=== PATIENT | female | born 1955 ===

== ENCOUNTER 2017-01-10 00:57 | Inpatient (IN) ==
[2017-01-10] MEDS ORDERED: ONDANSETRON 4 MG/2 ML VIAL IV STA (01:24)
[2017-01-10] MEDS ORDERED: MORPHINE 2 MG/1 ML SYRINGE IV STA (01:24)
--- NOTE | 2017-01-10 01:36 | Emergency Department Note ---
Myesha Quispe Emily, am scribing for, and in the presence of, Rodney Larsen MD 01: 32. Chava Quispe Robert M, MD, personally performed the services described in this documentation, ascribed by Karina Brunner in my presence, and it is both accurate and complete . Arrival - Arrival Chief Complaint: Non-Specific Stated Complaint: left hip pain ED Nursing Triage Note: Patient to ED coming from home with c/o left hip pain. Patient was [facility] and [facility] for same c/o but was told nothing was wrong. Upon arrival to ED patient is noted to have large samantha shayy to left upper thigh, with blisters present and some discoloaration. foul odor noted. Patient is deaf and mute, but her siginificant other is present and states he thinks this has been going on for 2 weeks. Patient is unable to communicate at all, other than some gestures. injury or fall is denied. Mode of Arrival: Stretcher Limitations: Physical Limitation (deaf and mute) Source: Significant other () Time Seen by Provider: 01/10/17 01:19 - History of Present Illness HPI Narrative: Pt is a 61 y/o female who came to ED by [facility] for further evaluation of left hip pain that started Saturday. Spouse notes pt doesn't speak and cannot hear. Spouse notes having an xray done Saturday and no results were given. He reports pt barely walking on left leg and denies fall or injury recently. Pt has blisters to upper left thigh. Onset (ago): week(s) Consistency: constant Severity: moderate Severity scale (1-10): 7 Allergies/Adverse Reactions: Allergies Allergy/AdvReac Type Severity Reaction Status Date / Time No Known Allergies Allergy Unverified 01/10/17 01:13 Home Medications: Home Medications Medication Instructions Recorded Confirmed Type Acetaminophen 2 tablet PO Q6HR PRN 01/10/17 01/10/17 History Metformin HCl 1 tablet PO BID 01/10/17 01/10/17 History cefUROXime axetil [Cefuroxime] 1 tablet PO BID 01/10/17 01/10/17 History Review of System - Review of System ROS unobtainable: other (deaf and mute) Medical,Surgical,& Family Hx - Medical History Endocrine: History of: Diabetes Mellitus (IDDM) - Social History Smoking Status: Unknown if ever smoked Frequency of Alcohol Use: None Type of Drug Use: None Marital Status: Lives With:: Spouse Functional capacity: independent ambulation Exam Vital Signs: Vital Signs Temperature 97.5 F L 01/10/17 01:04 Pulse Rate 99 H 01/10/17 01:04 Respiratory Rate 20 01/10/17 01:04 Blood Pressure 106/69 01/10/17 01:04 O2 Sat by Pulse Oximetry 96 01/10/17 01:04 - General General appearance: alert, in no apparent distress, obese (morbidly) - Head Head exam: Present: atraumatic, normocephalic - Eye Eye exam: Present: PERRL, EOMI - ENT ENT exam: Present: mucous membranes moist. Absent: mucous membranes dry - Neck Neck exam: Present: full ROM. Absent: tenderness - Chest Chest inspection: Present: symmetric chest wall rise. Absent: tenderness - Respiratory Respiratory exam: Present: normal lung sounds bilaterally. Absent: respiratory distress - Cardiovascular Cardiovascular exam: Present: regular rate, normal rhythm, normal heart sounds - Extremities Exam Extremities exam: Present: tenderness (tenderness at the lateral aspect of the left hip with left leg shortened and slightly externally rotated; ulceration at upper left thigh no drainage). Absent: full ROM (limited ROM secondary to pain) , pedal edema - Neurological Exam Neurological exam: Present: alert, CN II-XII intact, other (pt is non verbal but responds appropriately to pain). Absent: motor sensory deficit - Psychiatric Psychiatric exam: Present: normal affect, normal mood - Skin Skin exam: Present: warm, dry Course - Reevaluation(s) Reevaluation #1: Patient converted to A. fib with RVR. Will get EKG and give her Cardizem. Time: 02:43 - Consultations Consultation #1: Dr. Latrice Murillo will admit the patient. Time: 04:49 Results - Labs CBC & BMP: 01/10/17 01:43 01/10/17 01:43 Lab Results: I have reviewed the patients labs Labs: Lab Results WBC 17.1 T/CUMM (4-12) H 01/10/17 01:43 RBC 4.40 MC/CUMM (3.8-5.5) 01/10/17 01:43 Hgb 12.8 GM/DL (12.0-16.0) 01/10/17 01:43 Hct 37.0 VOL% (35.7-47.0) 01/10/17 01:43 MCV 84.1 FL (87-102) L 01/10/17 01:43 MCH 29 PG (27-34) 01/10/17 01:43 MCHC 34.6 GM/DL (32-36) 01/10/17 01:43 RDW 13.7 % (9.3-17.3) 01/10/17 01:43 Plt Count 297 T/CUMM (130-400) 01/10/17 01:43 MPV 10.2 FL (9.6-12.0) 01/10/17 01:43 Neut % (Auto) 84.7 % (38.7-73.9) H 01/10/17 01:43 Lymph % (Auto) 5.3 % (21.3-54.2) L 01/10/17 01:43 [place] % (Auto) 5.7 % (1.7-12.7) 01/10/17 01:43 Eos % (Auto) 0.2 % (0.00-10.9) 01/10/17 01:43 Baso % (Auto) 0.6 % (0.0-0.8) 01/10/17 01:43 Neut # (Auto) 14.5 10*3/uL (1.4-7.4) H 01/10/17 01:43 Lymph # (Auto) 0.9 10*3/uL (1.4-4.0) L 01/10/17 01:43 [place] # (Auto) 1.0 10*3/uL (0.11-0.8) H 01/10/17 01:43 Eos # (Auto) 0.0 10*3/uL (0.0-0.87) 01/10/17 01:43 Baso # (Auto) 0.1 10*3/uL (0.0-0.2) 01/10/17 01:43 Total Counted 100 01/10/17 01:43 Immature Gran % 3.5 % 01/10/17 01:43 Nucleated RBC % 0.0 /100WBC 01/10/17 01:43 Immature Gran # 0.60 # 01/10/17 01:43 Segmented Neutrophils 84 % (50-85) 01/10/17 01:43 Band Neutrophils 5 % (0-10) 01/10/17 01:43 Lymphocytes 9 % (20-55) L 01/10/17 01:43 Monocytes 2 % (2-15) 01/10/17 01:43 Nucleated RBCs # 0.00 10*3/uL 01/10/17 01:43 Platelet Estimate Normal 01/10/17 01:43 Sodium 136 MMOL/L (136-145) 01/10/17 01:43 Potassium 3.8 MMOL/L (3.5-5.1) 01/10/17 01:43 Chloride 100 MMOL/L (98-107) 01/10/17 01:43 Carbon Dioxide 19 MMOL/L (21-32) L 01/10/17 01:43 Anion Gap 20.8 MMOL/L (5.0-15.0) H 01/10/17 01:43 BUN 45 MG/DL (7-18) H 01/10/17 01:43 Creatinine 2.90 MG/DL (0.55-1.02) H 01/10/17 01:43 GFR Calculation 21 ML/MIN 01/10/17 01:43 BUN/Creatinine Ratio 15.00 RATIO (6.00-20.00) 01/10/17 01:43 Glucose 170 MG/DL (74-106) H 01/10/17 01:43 Calculated Osmolality 287.0 MOS/KG (273-304) 01/10/17 01:43 Calcium 7.9 MG/DL (8.5-10.1) L 01/10/17 01:43 Magnesium 1.4 MG/DL (1.8-2.4) L 01/10/17 01:43 - Diagnostic Findings Procedure: CT: image reviewed by me Critical Care Time Critical Care Time: Yes Total Critical Care Time: 52 Disposition Clinical Impression: Fasciitis left inguinal region Case discussed with: patient, patient's family Disposition: Still a Patient Condition: Stable Time of Disposition: 04:49
[2017-01-10] MEDS ORDERED: MORPHINE 2 MG/1 ML SYRINGE ONE (01:57)
[2017-01-10] MEDS ORDERED: ONDANSETRON 4 MG/2 ML VIAL ONE ×2 (01:57→07:50)
[2017-01-10 01:58] LABS: Basophils # 0.1 10*3/uL (0.0-0.2); Basophils % 0.6 % (0.0-0.8); Eosinophils % 0.2 % (0.00-10.9); Hemoglobin 12.8 GM/DL (12.0-16.0); Immature Granulocytes % 3.5 %; Lymphocytes # 0.9 10*3/uL (1.4-4.0); Lymphocytes % 5.3 % (21.3-54.2); Mean Corpuscular HGB Conc 34.6 GM/DL (32-36); Mean Corpuscular Hemoglobin 29 PG (27-34); Mean Corpuscular Volume 84.1 FL (87-102); Mean Platelet Volume 10.2 FL (9.6-12.0); Monocytes % 5.7 % (1.7-12.7); Neutrophils # 14.5 10*3/uL (1.4-7.4); Neutrophils % 84.7 % (38.7-73.9); Platelet Count 297 T/CUMM (130-400); Red Cell Distribution Width 13.7 % (9.3-17.3); White Blood Count 17.1 T/CUMM (4-12)
[2017-01-10 02:34] LABS: Calcium 7.9 MG/DL (8.5-10.1); Magnesium 1.4 MG/DL (1.8-2.4); Potassium 3.8 MMOL/L (3.5-5.1)
[2017-01-10] MEDS ORDERED: DILTIAZEM 50 MG/10 ML VIAL IV STA ×2 (02:43→03:49)
--- NOTE | 2017-01-10 02:48 | EKG Report ---
Stationary ECG Study [facility] ER Test Date: 01/10/2017 2:49:30 AM Pat Name: BRINA LAKHANI Department: Room: Gender: F Angle Shearer: : 1955 Requested by: Rodney Larsen Order Number: [id number] Keyana MD: ESTEFANÍA TANG Intervals [place] Rate: 155 P: 999 MA: 0 QRS: 26 QRSD: 92 T: -12 QT: 294 QTc: 381 Interpretive Statements ATRIAL FIBRILLATION WITH RAPID VENTRICULAR RESPONSE Electronically Signed On 01-12-17 12:12:17 CDT by ESTEFANÍA TANG [email or web address]
[2017-01-10] MEDS ORDERED: DILTIAZEM 50 MG/10 ML VIAL IV ONE (02:53)
[2017-01-10] MEDS ORDERED: DILTIAZEM 100 MG VIAL.ADD IV ONE (02:53)
[2017-01-10] MEDS: DILTIAZEM INJ 100 MG in SODIUM CHLORIDE 0.9% 100 ML IV SCH (03:05)
[2017-01-10 04:19] LABS: Band Neutrophils 5 % (0-10); Lymphocytes 9 % (20-55); Segmented Neutrophils 84 % (50-85)
[2017-01-10 04:20] LABS: Platelet Estimate Normal; Total Cells Counted 100
[2017-01-10] MEDS ORDERED: ACETAMINOPHEN 325 MG TABLET PO PRN (04:50)
[2017-01-10] MEDS ORDERED: BISACODYL 5 MG TABLET PO PRN (04:50)
[2017-01-10] MEDS ORDERED: ONDANSETRON 4 MG/2 ML VIAL IV PRN (04:50)
[2017-01-10] MEDS ORDERED: DEXTROSE 50% 25 GM/50 ML VIAL IV PRN ×2 (04:51→07:03)
[2017-01-10] MEDS ORDERED: GLUCAGON 1 MG VIAL IM PRN ×2 (04:51→07:03)
[2017-01-10] MEDS ORDERED: INSULIN LISPRO 100 UNIT/ML SUBCUT SCH (06:00)
[2017-01-10] MEDS: LACTATED RINGERS 1,000 ML IV SCH ×4 (06:00→18:13)
[2017-01-10] MEDS: NOREPINEPHRINE 8 MG in SODIUM CHLORIDE 0.9% 242 ML IV SCH ×3 (06:05→23:33)
[2017-01-10] MEDS ORDERED: NOREPINEPHRINE 4 MG/4 ML VIAL IV ONE (06:10)
--- NOTE | 2017-01-10 06:25 | CT Report ---
History: Pelvic and left hip pain and swelling and subcutaneous air Date: 01/10/2017 Study: CT left hip without contrast Comparison exam: No previous Thin spiral CT sections were obtained to the left hip without IV contrast. Multiplanar reconstruction images are also evaluated. The CT exam was performed using one or more of the following dose reduction techniques: Automated exposure control, adjustment of the mA and/or kV according to patient size, or use of iterative reconstruction technique. The study was also reviewed by [facility]. There is no fracture, dislocation, or focal destructive osseous abnormality. There is mild osteophyte formation of the left hip. Within the soft tissues anterior to the left hip and left pelvis and extending into the left perineum, there is edema of the subcutaneous fat with multiple small areas of gas density bubbles as well. This suggests soft tissue inflammation related to gas-forming organisms. There is no confined fluid collection to suggest abscess. Impression: Soft tissue edema in these anterior left hip and pelvis, extending into the lower left perineum, suspicious for infection related to gas-forming organisms. Osteoarthritis left hip PROCEDURE INTERPRETED AT [facility] DEPARTMENT OF RADIOLOGY Final Report Signed by: Dr. Margie Barker
[2017-01-10] MEDS ORDERED: MAGNESIUM SULF RIDER 50 ML IV ONE (06:52)
[2017-01-10] MEDS ORDERED: POTASSIUM CHLORIDE RIDER 100 ML IV ONE (06:53)
[2017-01-10] MEDS ORDERED: MAGNESIUM SULF RIDER 2 GM in PREMIX 1 EACH IV ONE (06:53)
[2017-01-10] MEDS ORDERED: LIDOCAINE 1%/EPI INJ 20 ML VIAL ONE (07:01)
[2017-01-10] MEDS ORDERED: BUPIVACAINE 0.25% /EPI 10 ML VIAL ONE (07:01)
--- NOTE | 2017-01-10 07:18 | XRay Report ---
Exam: XR hip 2v w pelvis LT Date: 01/10/2017 1:23 AM Indication: Status post fall pain left leg Comparison: None Technical: AP pelvis with left hip 4 images Findings: The sacrum is unremarkable. The iliac wings are intact the pubic rami are unremarkable. IUD is in place. The femoral heads are seated within acetabular regions. Greater lesser trochanteric regions are intact. Phleboliths are present. Arthritic change present lower lumbar spine with lateral marginal osteophytes at L4-5 and L5-S1. Impression: 1. No obvious fracture of the pelvis or hips 2. IUD in place. 3. Phleboliths in the true pelvis PROCEDURE INTERPRETED AT [facility] DEPARTMENT OF RADIOLOGY Final Report Signed by: Dr. Sebastián Hope
--- NOTE | 2017-01-10 07:20 | XRay Report ---
History: Chest pain. Shortness of breath Date: 01/10/2017 at 1:37 AM Study: Chest x-ray AP portable Comparison exam: October 17, 2011 There is mild cardiomegaly. There is no mediastinal mass. The pulmonary vasculature is not engorged. The exam was performed in shallow inspiration. There is no confluent infiltrate or gross pleural effusion. There are old rib fractures on the right. There is mild thoracic spondylosis. There is an intramedullary xenia in the partially visualized right humerus. Impression: Mild cardiomegaly. Shallow inspiration. No definite acute process PROCEDURE INTERPRETED AT [facility] DEPARTMENT OF RADIOLOGY Final Report Signed by: Dr. Margie Barker
[2017-01-10 07:22] LABS: Free T4 (Free Thyroxine) 1.45 NG/DL (0.76-1.46); Thyroid Stimulating Hormone 1.23 uIU/ml (0.358-3.74)
--- NOTE | 2017-01-10 07:22 | XRay Report ---
History: Central line placement Date: 01/10/2017 at 6:55 AM Study: Chest x-ray AP portable Comparison exam: 01/10/2017 at 1:37 AM The right IJ central line is well positioned with its tip over the atriocaval junction level. There is no pneumothorax. There is stable cardiomegaly. The pulmonary vasculature is not engorged. The lungs and pleural spaces are generally clear. There is no gross pleural effusion. Osseous structures are unremarkable. Impression: No evidence of a pneumothorax following central line placement PROCEDURE INTERPRETED AT [facility] DEPARTMENT OF RADIOLOGY Final Report Signed by: Dr. Margie Barker
--- NOTE | 2017-01-10 07:27 | General Surgery Consult Note ---
Assessment and Plan - Time spent with patient Time spent with patient: Greater than 30 minutes (1) Necrotizing fasciitis Status: Acute Assessment and plan: This appears to represent a severe necrotizing soft tissue infection with sepsis. I spent about an hour and resuscitation of this patient coordinating care with internal medicine and cardiology. I placed a central line. I have arranged to take her to the operating room once we have her stabilized. This was discussed with the patient's family who I believe is a boyfriend and either the patient's sister or the boyfriend sister that I spoke to over the phone. At any rate I would consider this emergent treatment and now we will do the best we can to locate other family members. We have called some numbers that were not answered. We have bolused with IV fluid and started levo fed initially through a peripheral IV which we can switch to the central line that I have placed. Her blood pressure is improved. We will get her back to the operating room and obviously she will be at high risk for complications. She may have other severe comorbidities that have not yet been identified clearly she is diabetic. Current Visit: Yes History of Present Illness Chief complaint: Ulcer on hip History of present illness: Ms. Mckeon is a 61 year old female Who I was called about a couple of hours ago and had been in the process of seeing in the CCU. The patient according to her boyfriend has had an ulcer over her mons pubis for about 2 weeks. She had been put on some antibiotics by mouth. I do not have records of this. She presented to the emergency room last night and I was called about 430 this morning saying that she had a hematoma of her hip and they had done a CT scan and this showed gas in the soft tissues. She was admitted to the CCU and just prior to my arrival developed hypotension and was noted to be in atrial fibrillation with rapid ventricular response. It is very difficult to get a history or communicate with the patient because she is deaf and mute. My history is through her boyfriend. Also discussed her case with a person over the phone that I was told was her sister but we have since found out that it may have been her boyfriend's sister. We have discussed the need for debridement emergently this morning after she is resuscitated. Prior to my arrival over the phone I started her on levo fed and this helps some with her blood pressure we have also bolus IV fluid involved internal medicine and cardiology as well this morning. The patient as best I can tell denies any abdominal pain. She denies fever. She has been feeling weak and has had some anorexia and malaise over the last several days. She denies any trauma. Home Medications Medication Instructions Recorded Confirmed Type Acetaminophen 2 tablet PO Q6HR PRN 01/10/17 01/10/17 History Metformin HCl 1 tablet PO BID 01/10/17 01/10/17 History cefUROXime axetil [Cefuroxime] 1 tablet PO BID 01/10/17 01/10/17 History Allergies Allergy/AdvReac Type Severity Reaction Status Date / Time No Known Allergies Allergy Unverified 01/10/17 01:13 Medical,Surgical,& Family Hx - Medical History Cardio: Comment Only: Cardiovascular Problems (unknown - pt is deaf/mute, significant other does not know) HEENT: History of: Ear Problem (DEAF) Endocrine: History of: Diabetes Mellitus (NIDDM) Respiratory: Comment Only: Respiratory Problems (unknown - pt is deaf/mute, significant other does not know) Renal: Comment Only: Renal Problems (unknown - pt is deaf/mute, significant other does not know) Genitourinary: Comment Only: Bladder Problem (unknown - pt is deaf/mute, significant other does not know) Gastrointestinal: Comment Only: GI Problems (unknown - pt is deaf/mute, significant other does not know) Musculoskeletal: Comment Only: Musculoskeletal Problems (unknown - pt is deaf/mute, significant other does not know) Hematology: Comment Only: Bleeding Problems (unknown - pt is deaf/mute, significant other does not know) Reproductive: Comment Only: Reproductive Problems (unknown - pt is deaf/mute, significant other does not know) Other: Comment Only: Miscellaneous Medical Problems (unknown - pt is deaf/mute, significant other does not know) - Surgical History Surgical History: noncontributory Cardiac Surgeries: Comment Only: Femoral-Popliteal Bypass Graft (unknown - pt is deaf/mute, significant other does not know), Cardiac Catheterization (unknown - pt is deaf/ mute, significant other does not know), Cardiac Surgery (unknown - pt is deaf/ mute, significant other does not know), Carotid Endarterectomy (unknown - pt is deaf/mute, significant other does not know), Internal Defibrillator (unknown - pt is deaf/mute, significant other does not know), Vascular Access Devices ( unknown - pt is deaf/mute, significant other does not know) Thoracic Surgeries: Comment Only: Organ Transplant (unknown - pt is deaf/mute, significant other does not know) HEENT Surgeries: Comment Only: Carotid Endarterectomy (unknown - pt is deaf/mute, significant other does not know), Eye Surgery (unknown - pt is deaf/mute, significant other does not know), Tonsilectomy & Adenoidectomy (unknown - pt is deaf/mute, significant other does not know) Abdominal Surgeries: Comment Only: Abdominal Surgery (unknown - pt is deaf/mute, significant other does not know), Hernia Repair (unknown - pt is deaf/mute, significant other does not know), Splenectomy (unknown - pt is deaf/mute, significant other does not know) Reproductive Surgeries: Comment Only: Genitourinary Surgery (unknown - pt is deaf/mute, significant other does not know), Gynecologic Surgery (unknown - pt is deaf/mute, significant other does not know) - Family History Family History: noncontributory - Social History Smoking Status: Unknown if ever smoked Frequency of Alcohol Use: None Type of Drug Use: None - Constitutional Constitutional: Present: anorexia, malaise, weight loss. Absent: chills, fever( s) - EENT Nose, mouth and throat: Absent: dysphagia - Cardiovascular Cardiovascular: Absent: chest pain at rest, chest pain with activity, dyspnea, dyspnea on exertion, syncope - Respiratory Respiratory: Absent: cough, dyspnea, hemoptysis, dyspnea on exertion - Gastrointestinal Gastrointestinal: Present: diarrhea. Absent: abdominal pain, bloating, hematemesis, hematochezia, nausea, vomiting, jaundice - Genitourinary Genitourinary: Absent: dysuria, hematuria - Musculoskeletal Musculoskeletal: Absent: back pain - Neurological Neurological: Absent: focal weakness, syncope - Endocrine Endocrine: Absent: polyuria Hematologic/Lymphatic: Absent: easy bleeding, easy bruising Exam - Constitutional Vitals: Period Temp Pulse Resp BP Sys/Parker Pulse Ox Last 24 Hr 97.3 F-97.5 F 99-130 16-26 71-106/53-69 91-96 General appearance: no acute distress, morbidly obese - Head Head exam: Present: normocephalic - Eye Eye exam: Absent: scleral icterus - ENT Mouth exam: Present: normal voice - Neck Neck exam: Present: trachea midline. Absent: lymphadenopathy, tenderness, thyromegaly - Respiratory Respiratory exam: Present: clear to auscultation bilaterally. Absent: accessory muscle use - Cardiovascular Cardiovascular exam: Present: RRR - GI/Abdominal GI/Abdominal exam: Present: soft. Absent: distended, guarding, tenderness, rebound - Anus/Rectum Anus/Rectum: other (On the perineum there is about a 3 cm necrotic ulcer. There is crepitus and skin change extending to the left over the inguinal region over to the anterior aspect of the and lateral aspect of the left hip. His bullous change control analyst the left hip.) - Extremities Exam Extremities exam: Present: normal inspection. Absent: edema - Back Exam Back exam: Present: normal inspection - Neurological Exam Neurological exam: Present: alert, oriented X3. Absent: motor sensory deficit Speech: Present: abnormal - Skin Skin exam: Present: normal color Results - Labs CBC & BMP: 01/10/17 01:43 01/10/17 01:43 Lab Results: I have reviewed the past 24 hour labs - Diagnostic Findings Procedure: CT Abdomen and Pelvis: report reviewed by me, image reviewed by me
[2017-01-10] MEDS ORDERED: POTASSIUM CHLORIDE RIDER 10 MEQ in PREMIX 1 EACH IV ONE (07:30)
[2017-01-10] MEDS ORDERED: VANCOMYCIN INJ 1,000 MG in SODIUM CHLORIDE 0.9% 250 ML IV ONE (07:30)
--- NOTE | 2017-01-10 07:34 | Hospitalist Consult Note ---
Assessment and Plan - Time spent with patient Time spent with patient: Greater than 30 minutes (1) Severe sepsis Status: Acute Assessment and plan: Central line placed. Lactic acid ordered. IV fluids bolused. IV antibiotics started. Blood cultures obtained. Current Visit: Yes (2) Necrotizing fasciitis Status: Acute Assessment and plan: This is the underlying cause of her sepsis. She is on her way to the operating room for debridement and cultures. IV antibiotics have been initiated. Consider infectious disease consult Current Visit: Yes (3) Acute renal failure Status: Acute Assessment and plan: Likely secondary to sepsis and volume patient with hypotension. Monitor labs and give aggressive hydration. Current Visit: Yes (4) Atrial fibrillation with rapid ventricular response Status: Acute Assessment and plan: Started on Cardizem drip for rate control. Cardiology consult in progress. Echo pending. Current Visit: Yes (5) DM type 2 (diabetes mellitus, type 2) Status: Acute Assessment and plan: Patient is on metformin prior to admission. glucose this morning 170s. Sliding scale insulin and diabetic diet postoperatively. Hemoglobin A1c pending Current Visit: Yes (6) Deaf-mutism Status: Chronic Current Visit: Yes History of Present Illness - Data of Consult Patient: new to practice Consult date: 01/10/17 Requesting Physician: Tung Pollard III. - Consult Narrative Reason for consult: Medical management History of present illness: Ms. Mckeon is a 61 year old female with hip pain transferred here from [facility] for further evaluation of left hip pain that started Saturday. Significant other notes patient doesn't speak and cannot hear. He notes having an xray done Saturday and no results were given. He reports the patient barely walking on left leg and denies fall or injury recently. Pt has blisters to upper left thigh. At the time of my evaluation, the patient's family members were not present. The history is taken from the admitting surgeon and the ER records. The patient was found to be in acute septic shock with hypotension tachycardia and atrial fibrillation with rapid ventricular response. She is undergoing aggressive fluid resuscitation in anticipation of going to the operating room for definitive treatment of what appears to be a necrotizing fasciitis involving her hip. The Hospitalist service was asked to see the patient in consultation and assume care of the patient postoperatively given her medical complications including acute renal failure, diabetes mellitus type 2, atrial fibrillation with rapid ventricular response. At this time were trying to optimize her medical management prior to going to the OR. This is emergent surgery for a worsening infection that is causing significant sepsis. Lactic acid is pending. A central line was placed by Dr. Pollard III on the chest x-ray was reviewed at the bedside. The case was discussed with Dr. Latrice Murillo as well as Dr. Iqbal, the overnight hospitalist who saw the patient at 6:45 this morning. CC: Sebastián Pollard Jr. - Home Medications and Allergies Home Medications: Home Medications Medication Instructions Recorded Confirmed Type Acetaminophen 2 tablet PO Q6HR PRN 01/10/17 01/10/17 History Metformin HCl 1 tablet PO BID 01/10/17 01/10/17 History cefUROXime axetil [Cefuroxime] 1 tablet PO BID 01/10/17 01/10/17 History Allergies/Adverse Reactions: Allergies Allergy/AdvReac Type Severity Reaction Status Date / Time No Known Allergies Allergy Unverified 01/10/17 01:13 Medical,Surgical,& Family Hx - Medical History Cardio: Comment Only: Cardiovascular Problems (unknown - pt is deaf/mute, significant other does not know) HEENT: History of: Ear Problem (DEAF) Endocrine: History of: Diabetes Mellitus (NIDDM) Respiratory: Comment Only: Respiratory Problems (unknown - pt is deaf/mute, significant other does not know) Renal: Comment Only: Renal Problems (unknown - pt is deaf/mute, significant other does not know) Genitourinary: Comment Only: Bladder Problem (unknown - pt is deaf/mute, significant other does not know) Gastrointestinal: Comment Only: GI Problems (unknown - pt is deaf/mute, significant other does not know) Musculoskeletal: Comment Only: Musculoskeletal Problems (unknown - pt is deaf/mute, significant other does not know) Hematology: Comment Only: Bleeding Problems (unknown - pt is deaf/mute, significant other does not know) Reproductive: Comment Only: Reproductive Problems (unknown - pt is deaf/mute, significant other does not know) Other: Comment Only: Miscellaneous Medical Problems (unknown - pt is deaf/mute, significant other does not know) - Surgical History Cardiac Surgeries: Comment Only: Femoral-Popliteal Bypass Graft (unknown - pt is deaf/mute, significant other does not know), Cardiac Catheterization (unknown - pt is deaf/ mute, significant other does not know), Cardiac Surgery (unknown - pt is deaf/ mute, significant other does not know), Carotid Endarterectomy (unknown - pt is deaf/mute, significant other does not know), Internal Defibrillator (unknown - pt is deaf/mute, significant other does not know), Vascular Access Devices ( unknown - pt is deaf/mute, significant other does not know) Thoracic Surgeries: Comment Only: Organ Transplant (unknown - pt is deaf/mute, significant other does not know) HEENT Surgeries: Comment Only: Carotid Endarterectomy (unknown - pt is deaf/mute, significant other does not know), Eye Surgery (unknown - pt is deaf/mute, significant other does not know), Tonsilectomy & Adenoidectomy (unknown - pt is deaf/mute, significant other does not know) Abdominal Surgeries: Comment Only: Abdominal Surgery (unknown - pt is deaf/mute, significant other does not know), Hernia Repair (unknown - pt is deaf/mute, significant other does not know), Splenectomy (unknown - pt is deaf/mute, significant other does not know) Reproductive Surgeries: Comment Only: Genitourinary Surgery (unknown - pt is deaf/mute, significant other does not know), Gynecologic Surgery (unknown - pt is deaf/mute, significant other does not know) - Family History Additional Family History: Unobtainable patient is deaf and mute and no family are present - Social History Smoking Status: Unknown if ever smoked Frequency of Alcohol Use: None Type of Drug Use: None Marital Status: Single Lives With:: Significant Other Functional capacity: independent ambulation ROS unobtainable: due to mental status (Patient septic and hypotensive.), other (Patient is deaf and mute and unable to communicate) - Constitutional Constitutional: Present: as per HPI - Musculoskeletal Musculoskeletal: Present: limited range of motion, other (Hip pain) Exam - Constitutional Vitals: Period Temp Pulse Resp BP Sys/Parker Pulse Ox Last 24 Hr 97.3 F-97.5 F 99-130 16-26 71-106/53-69 91-96 Exam: Constitutional System: Severe distress. No tremulousness. The patient is deaf and mute. She is tachycardic, hypotensive on pressors, receiving Cardizem and IV fluid boluses. Head: Normocephalic, atraumatic. Ears, Nose and Throat System: No pain or tenderness. No epistaxis or discharge Eyes System: Pupils equal, round, and reactive. Extraocular muscles intact. Neck: Supple, without adenopathy, No jugular venous distention. No thyromegaly, neck mass, or prior surgery apparent. Respiratory System: Chest clear to auscultation. Cardiovascular System: Heart with tachycardia and irregular rate and rhythm consistent with atrial fibrillation with rapid ventricular response. No murmur. GI System: Abdomen soft, nontender. Normo active bowel sounds present. Musculoskeletal System: limbs with no pedal edema. Full distal pulses. There is crepitus and skin change extending to the left over the inguinal region over to the anterior aspect of the and lateral aspect of the left hip. There is bullous post exchange manager the left hip. Neurological System: No discernable sensory deficit. Deaf and mute. Psychiatric System: Unable to perform secondary to patient's mental status and the fact that she is deaf and mute Results - Labs CBC & BMP: 01/10/17 01:43 01/10/17 01:43 Lab Results: I have reviewed the past 24 hour labs - EKG EKG shows: atrial fibrillation - Diagnostic Findings Procedure: CT: image reviewed by me, report reviewed by me Sepsis - Sepsis Classification of Sepsis: Severe Sepsis Sepsis documentation within 6 hours of presentation: fluid change - Physical Exam Respiratory exam: clear to auscultation bilaterally Capillary Refill: Less Than 3 Seconds Peripheral pulses: Radial (L): 3+/4+, Radial (R): 3+/4+, Dorsalis Pedis (L) PM: 3+/4+, Dorsalis Pedis (R) PM: 3+/4+, Posterior Tibialis (L): 3+/4+, Posterior Tibialis (R): 3+/4+ Cardiovascular exam: irregular rhythm, tachycardia
--- NOTE | 2017-01-10 07:34 | Operative Note ---
Date of procedure: 01/10/17 Pre-op diagnosis: Necrotizing fasciitis with sepsis Post-op diagnosis: same Procedure: Right internal jugular vein central venous line under ultrasound guidance Findings and technique: After informed consent was obtained from her family and from the patient the best that I could patient was placed in a supine position with some Trendelenburg and her neck prepped and draped in usual sterile fashion. Full barrier precautions were used. Sterile ultrasound probe was placed over the right neck where the internal jugular vein was identified and easily accessed with a single stick. Guidewire was advanced without resistance and the dilator passed over the guidewire and the catheter advanced over the guidewire and the guidewire removed. The catheter had aspiration of venous blood and was flushed and sutured into place. Chest x-ray showed good positioning and no pneumothorax. She appeared to tolerate the procedure well. Anesthesia: local Surgeon / Physician: Tung Pollard III. Estimated blood loss: minimal Specimens: none sent Condition: stable Disposition: no change Results - Labs CBC & BMP: 01/10/17 01:43 01/10/17 01:43 Discharge Plan - Discharge Medications No Action Acetaminophen 2 tablet PO Q6HR PRN PRN Reason: Pain cefUROXime axetil [Cefuroxime] 1 tablet PO BID Metformin HCl 1 tablet PO BID - Follow Up or Referral - Forms/Instructions
--- NOTE | 2017-01-10 07:38 | Cardiology Consult Note ---
History of Present Illness - Data of Consult Patient: new to practice Consult date: 01/10/17 - Consult Narrative History of present illness: Cardiology note 61-year-old diabetic woman has necrotizing fasciitis in the left groin and hip. She has been treated with cefuroxime at the [facility] recently. CT last night showed osteoarthritis of the left hip and gas in the soft tissues. She has become hypotensive and developed atrial fibrillation and cardiac clearance requested. The patient is deaf and mute. No family present. She is a diabetic and takes metformin 500 mg twice daily. She has been on cefuroxime 250 g twice daily for an unknown period of time. Currently she is on levo fed and her blood pressure is now 94/59. She is also on IV Cardizem and currently in atrial fib with ventricular rate in the 80s and 90s. Stat echo shows normal ventricular function with moderate dilated atrium and a mildly dilated right ventricle. Aortic valve sclerotic but no AI. No MR. Moderate TR PA pressure 50 with no effusion. Lab data White count 17.1 with left shift hemoglobin 12.8 hematocrit 37.0 sodium 136 potassium 3.8 chloride 100 CO2 19 BUN 45 creatinine 2.90 glucose 170 magnesium 1.4 free T4 1.45 EKG shows atrial fib rate 160 with preserved R waves and diffuse ST-T wave changes. Chest x-ray shows mild cardiomegaly no heart failure and elevated right hemidiaphragm Blood pressure is 96/60 pulse is 85-90 and irregular O2 sat is 95% on 2 L. Patient is deaf and mute. No carotid bruit. Irregular rhythm. No murmur. Decreased breath sounds. Abdomen is obese soft benign. She has a ecchymotic erythematous bruise in her left groin and hip region with crepitus in the tissue. No leg edema. Impression Diabetic woman with necrotizing fasciitis left groin and hip. CT showed gas in the soft tissues New onset atrial fibrillation probably due to sepsis and hypotension. Echo shows good ventricular function EF 55-60% with moderate that left atrium and moderate TR PA pressure 50 Renal failure BUN 45 creatinine 2.90 Obesity Chest x-ray shows mild cardiomegaly no heart failure and elevated right hemidiaphragm No EKG evidence for IN Deaf and mute Plan Patient needs surgical debridement for life-threatening infection Continue Levophed Continue IV Cardizem Fluids We will follow with you CC: Sebastián Pollard Jr. - Home Medications and Allergies Home Medications: Home Medications Medication Instructions Recorded Confirmed Type Acetaminophen 2 tablet PO Q6HR PRN 01/10/17 01/10/17 History Metformin HCl 1 tablet PO BID 01/10/17 01/10/17 History cefUROXime axetil [Cefuroxime] 1 tablet PO BID 01/10/17 01/10/17 History Allergies/Adverse Reactions: Allergies Allergy/AdvReac Type Severity Reaction Status Date / Time No Known Allergies Allergy Unverified 01/10/17 01:13 Medical,Surgical,& Family Hx - Medical History Cardio: Comment Only: Cardiovascular Problems (unknown - pt is deaf/mute, significant other does not know) HEENT: History of: Ear Problem (DEAF) Endocrine: History of: Diabetes Mellitus (IDDM) Respiratory: Comment Only: Respiratory Problems (unknown - pt is deaf/mute, significant other does not know) Renal: Comment Only: Renal Problems (unknown - pt is deaf/mute, significant other does not know) Genitourinary: Comment Only: Bladder Problem (unknown - pt is deaf/mute, significant other does not know) Gastrointestinal: Comment Only: GI Problems (unknown - pt is deaf/mute, significant other does not know) Musculoskeletal: Comment Only: Musculoskeletal Problems (unknown - pt is deaf/mute, significant other does not know) Hematology: Comment Only: Bleeding Problems (unknown - pt is deaf/mute, significant other does not know) Reproductive: Comment Only: Reproductive Problems (unknown - pt is deaf/mute, significant other does not know) Other: Comment Only: Miscellaneous Medical Problems (unknown - pt is deaf/mute, significant other does not know) - Surgical History Cardiac Surgeries: Comment Only: Femoral-Popliteal Bypass Graft (unknown - pt is deaf/mute, significant other does not know), Cardiac Catheterization (unknown - pt is deaf/ mute, significant other does not know), Cardiac Surgery (unknown - pt is deaf/ mute, significant other does not know), Carotid Endarterectomy (unknown - pt is deaf/mute, significant other does not know), Internal Defibrillator (unknown - pt is deaf/mute, significant other does not know), Vascular Access Devices ( unknown - pt is deaf/mute, significant other does not know) Thoracic Surgeries: Comment Only: Organ Transplant (unknown - pt is deaf/mute, significant other does not know) HEENT Surgeries: Comment Only: Carotid Endarterectomy (unknown - pt is deaf/mute, significant other does not know), Eye Surgery (unknown - pt is deaf/mute, significant other does not know), Tonsilectomy & Adenoidectomy (unknown - pt is deaf/mute, significant other does not know) Abdominal Surgeries: Comment Only: Abdominal Surgery (unknown - pt is deaf/mute, significant other does not know), Hernia Repair (unknown - pt is deaf/mute, significant other does not know), Splenectomy (unknown - pt is deaf/mute, significant other does not know) Reproductive Surgeries: Comment Only: Genitourinary Surgery (unknown - pt is deaf/mute, significant other does not know), Gynecologic Surgery (unknown - pt is deaf/mute, significant other does not know) - Social History Smoking Status: Unknown if ever smoked Frequency of Alcohol Use: None Type of Drug Use: None Physical Examination Vital Signs Temp Pulse Resp BP Pulse Ox 97.5 F L 99 H 20 106/69 96 01/10/17 01:04 01/10/17 01:04 01/10/17 01:04 01/10/17 01:04 01/10/17 01:04 Result/EKG - Labs CBC & BMP: 01/10/17 01:43 01/10/17 01:43 Labs: Laboratory Results - last 24 hr 01/10/17 01/10/17 01/10/17 01:43 01:43 01:43 WBC 17.1 H RBC 4.40 Hgb 12.8 Hct 37.0 MCV 84.1 L MCH 29 MCHC 34.6 RDW 13.7 Plt Count 297 MPV 10.2 Neut % (Auto) 84.7 H Lymph % (Auto) 5.3 L Haskell % (Auto) 5.7 Eos % (Auto) 0.2 Baso % (Auto) 0.6 Neut # (Auto) 14.5 H Lymph # (Auto) 0.9 L Haskell # (Auto) 1.0 H Eos # (Auto) 0.0 Baso # (Auto) 0.1 Total Counted 100 Immature Gran % 3.5 Nucleated RBC % 0.0 Immature Gran # 0.60 Segmented Neutrophils 84 Band Neutrophils 5 Lymphocytes 9 L Monocytes 2 Nucleated RBCs # 0.00 Platelet Estimate Normal Sodium 136 Potassium 3.8 Chloride 100 Carbon Dioxide 19 L Anion Gap 20.8 H BUN 45 H Creatinine 2.90 H GFR Calculation 21 BUN/Creatinine Ratio 15.00 Glucose 170 H POC Glucose Calculated Osmolality 287.0 Calcium 7.9 L Magnesium 1.4 L Free T4 1.45 TSH 3rd Generation 1.230 01/10/17 06:15 WBC RBC Hgb Hct MCV MCH MCHC RDW Plt Count MPV Neut % (Auto) Lymph % (Auto) Haskell % (Auto) Eos % (Auto) Baso % (Auto) Neut # (Auto) Lymph # (Auto) Haskell # (Auto) Eos # (Auto) Baso # (Auto) Total Counted Immature Gran % Nucleated RBC % Immature Gran # Segmented Neutrophils Band Neutrophils Lymphocytes Monocytes Nucleated RBCs # Platelet Estimate Sodium Potassium Chloride Carbon Dioxide Anion Gap BUN Creatinine GFR Calculation BUN/Creatinine Ratio Glucose POC Glucose 170 H Calculated Osmolality Calcium Magnesium Free T4 TSH 3rd Generation
[2017-01-10] MEDS ORDERED: ROCURONIUM 100 MG/10 ML VIAL IV ONE (07:50)
[2017-01-10] MEDS ORDERED: ETOMIDATE 20 MG/10 ML VIAL IV ONE (07:50)
[2017-01-10] MEDS ORDERED: LIDOCAINE 1% 5 ML VIAL ONE (07:50)
[2017-01-10] MEDS ORDERED: PHENYLEPHRINE 1 MG/10 ML SYRINGE IV ONE (07:50)
[2017-01-10] MEDS ORDERED: PHENYLEPHRINE 50 MG/5 ML VIAL ONE (07:50)
[2017-01-10 07:56] LABS: Troponin I Only < 0.015 NG/ML (0.00-0.045)
[2017-01-10] MEDS ORDERED: CLINDAMYCIN INJ 50 ML IV ONE (07:58)
[2017-01-10] MEDS ORDERED: SODIUM CHLORIDE 0.9% 1,000 ML IV ONE (08:00)
[2017-01-10] MEDS: CLINDAMYCIN INJ 900 MG in PREMIX 1 EACH IV SCH ×2 (08:05→15:22)
[2017-01-10] MEDS ORDERED: AMPICILLIN/SULBACTAM 3,000 MG in SODIUM CHLORIDE 0.9% 100 ML IV SCH (09:00)
[2017-01-10] MEDS ORDERED: PANTOPRAZOLE 40 MG TABLET PO SCH (09:00)
--- NOTE | 2017-01-10 09:36 | Operative Note ---
Date of procedure: 01/10/17 Pre-op diagnosis: Necrotizing soft tissue infection of perineum groin thigh and abdominal wal Post-op diagnosis: same Procedure: Excisional debridement of skin subcutaneous tissue and fascia of perineum thigh and anterior abdominal wall and left flank 28 x 43 cm for necrotizing soft tissue infection Findings and technique: After informed consent was obtained and patient resuscitated in the CCU the patient was stabilized and brought to the operating room. I placed a central line and we had placed her on levo fed and actually at the time that we go to the operating room added aaron-. She had had IV antibiotics started and fluid resuscitation as well. After successful induction with general anesthesia which was tolerated well the patient's abdomen perineum groin and left lower extremity were prepped and draped in usual sterile fashion. I started the debridement at the ulcerated area at her mons pubis. This tracked down her left labia majora to the perineum. This was laid open and necrotic subcutaneous tissue excised away. This then tracked laterally along the left inguinal region into the inguinal region the left anterior thigh left hip and anterior abdominal wall. The majority of the necrosis was in her thick abdominal wall pannus and subcutaneous layer. Portion of the fascia along the anterior inguinal region and anterior thigh was also necrotic and this was debrided away as well. This was an extensive tedious debridement with electrocautery used to stop subcutaneous bleeders. Try to keep blood loss to remain a minimal by tediously dealing with each bleeders I came to in the subcutaneous layer. I felt that we Blood loss to around 300 cc total. An extensive area of abdominal pannus inguinal fascia and thigh fascia and subcutaneous tissue was debrided along the lateral aspect of the hip and left flank. The total debrided area after debridement measured 43 cm in length by 28 cm wide. I preserved some skin and a good deal of this debrided tissue was undermined under viable skin. Wound was then packed open with quarter strength Dakin's Kerlix rolls placing 6 Kerlix rolls in the defect and then applying ABD pads and dressing. She was transported intubated back to the CCU. I have involved internal medicine as well as cardiology in the care of this patient. She will be primarily under their care with me managing her debridements and I suspect we will need repeated trips to the operating room. We have had a difficult time locating any family. Boyfriend has no phone numbers of any family members. The patient is been too ill to really communicate with and she is also deaf and mute. We have considered this an emergency situation and done the best we can. Hopefully we can locate some family through the [facility] liaison. Anesthesia: GETA Surgeon / Physician: Tung Pollard III. Estimated blood loss: other (300 mL) Specimens: other (Debrided tissue and cultures) Condition: critical Disposition: ICU Results - Labs CBC & BMP: 01/10/17 01:43 01/10/17 01:43 Discharge Plan - Discharge Medications No Action Acetaminophen 2 tablet PO Q6HR PRN PRN Reason: Pain cefUROXime axetil [Cefuroxime] 1 tablet PO BID Metformin HCl 1 tablet PO BID - Follow Up or Referral - Forms/Instructions
[2017-01-10] MEDS ORDERED: PROPOFOL 1,000 MG/100 ML BOTTLE IV ONE (10:09)
--- NOTE | 2017-01-10 10:15 | Anesthesia Post-Op ---
Anesthesia Post OP - Post Ansesthetic Evaluation Patient seen in post op: Yes Resp: other (pt remains on vent Pt septic vss NAC noted) CV: within normal limits Mental: within normal limits Temp: within normal limits [id number]: within normal limits Nausea and Vomiting: within normal limits Pain: within normal limits
[2017-01-10] MEDS ORDERED: MIDAZOLAM 2 MG/2 ML VIAL ONE (10:23)
[2017-01-10] MEDS ORDERED: SEVOFLURANE 1 UNIT/15 MINUTE INH ONE (10:23)
[2017-01-10] MEDS ORDERED: fentaNYL 100 MCG/2 ML VIAL ONE (10:23)
[2017-01-10] MEDS: PANTOPRAZOLE 40 MG VIAL IV SCH (10:48)
[2017-01-10 11:16] LABS: ABG Base Excess -11.6 MMOL/L (-2.5-2.5); ABG HCO3 15.4 MMOL/L (20-26); ABG Oxygen Saturation 98.7 % (95-100); ABG PCO2 35.3 MM HG (35-48); ABG PH 7.239 (7.35-7.45); ABG TCO2 13.8 MMOL/L (23-27)
[2017-01-10] MEDS: INSULIN REGULAR 100 UNIT/ML SUBCUT SCH ×2 (11:35→17:37)
[2017-01-10] MEDS ORDERED: VANCOMYCIN INJ 1,250 MG in SODIUM CHLORIDE 0.9% 250 ML IV PRN (12:14)
--- NOTE | 2017-01-10 12:42 | Pulmonology Consult Note ---
Assessment and Plan (1) Necrotizing fasciitis Status: Acute Assessment and plan: Patient has extensive necrotizing fasciitis and has had significant surgical debridement. She will remain on the ventilator for now. She likely will require repeated trips to the OR. Current Visit: Yes (2) Severe sepsis Status: Acute Assessment and plan: She is getting broad-spectrum antibiotics and fluids. Current Visit: Yes (3) Acute renal failure Status: Acute Assessment and plan: The patient's creatinine is 2.9. Current Visit: Yes (4) Atrial fibrillation with rapid ventricular response Status: Acute Assessment and plan: The patient is having a rapid heart rate but is getting fluid resuscitation. She is fairly stable on the ventilator. Current Visit: Yes (5) DM type 2 (diabetes mellitus, type 2) Status: Acute Assessment and plan: The patient did not know she was a diabetic to last week. Her glucose is 143 now. Current Visit: Yes (6) Deaf-mutism Status: Chronic Assessment and plan: Communication may be difficult. Current Visit: Yes History of Present Illness Chief complaint: Ventilator management History of present illness: Ms. Mckeon is a 61 year old female that apparently is a deaf mute and had been living at home. She apparently was just diagnosed with diabetes. Apparently she has had a ulceration in her perineal area that is been there for couple weeks. She started having more pain and swelling and was found to have gas in the soft tissues and was felt to have a necrotizing fasciitis. She was taken to the OR and apparently had extensive debridement of the perineum and anterior abdominal wall and left flank. She was felt to have at least some sepsis and is on the ventilator now. She will continue with fluids and antibiotics and ventilatory support. Home Medications Medication Instructions Recorded Confirmed Type Acetaminophen 2 tablet PO Q6HR PRN 01/10/17 01/10/17 History Metformin HCl 1 tablet PO BID 01/10/17 01/10/17 History cefUROXime axetil [Cefuroxime] 1 tablet PO BID 01/10/17 01/10/17 History Allergies Allergy/AdvReac Type Severity Reaction Status Date / Time No Known Allergies Allergy Unverified 01/10/17 01:13 ROS unobtainable: due to endotracheal tube (We are unable to get much history now. Apparently she had not been on any medicines until just recently.) Exam (Pulmonay) H&P - Constitutional Vitals: Period Temp Pulse Resp BP Sys/Parker Pulse Ox Last 24 Hr 97.3 F-97.5 F 99-140 10-26 71-106/52-69 91-96 General appearance: no acute distress (Patient looks reasonably comfortable on the ventilator.), over weight - Head Head exam: Present: normal inspection - Eye Eye exam: Present: EOMI. Absent: scleral icterus Pupils: Present: DEBBIE - ENT ENT exam: Present: other (ET tube is in good position) - Neck Neck exam: Present: normal inspection - Respiratory Respiratory exam: Present: clear to auscultation bilaterally - Cardiovascular Cardiovascular exam: Present: irregular rhythm, tachycardia. Absent: systolic murmur - GI/Abdominal GI/Abdominal exam: Present: hypoactive bowel sounds, soft. Absent: organomegaly , tenderness - Extremities Exam Extremities exam: Absent: calf tenderness, edema - Neurological Exam Neurological exam: Present: alert - Psychiatric Psychiatric exam: Absent: anxious - Skin Skin exam: Present: warm, dry Medical,Surgical,& Family Hx - Medical History Cardio: Comment Only: Cardiovascular Problems (unknown - pt is deaf/mute, significant other does not know) HEENT: History of: Ear Problem (DEAF) Endocrine: History of: Diabetes Mellitus (IDDM), Diabetes Mellitus (NIDDM) Respiratory: Comment Only: Respiratory Problems (unknown - pt is deaf/mute, significant other does not know) Renal: Comment Only: Renal Problems (unknown - pt is deaf/mute, significant other does not know) Genitourinary: Comment Only: Bladder Problem (unknown - pt is deaf/mute, significant other does not know) Gastrointestinal: Comment Only: GI Problems (unknown - pt is deaf/mute, significant other does not know) Musculoskeletal: Comment Only: Musculoskeletal Problems (unknown - pt is deaf/mute, significant other does not know) Hematology: Comment Only: Bleeding Problems (unknown - pt is deaf/mute, significant other does not know) Reproductive: Comment Only: Reproductive Problems (unknown - pt is deaf/mute, significant other does not know) Other: Comment Only: Miscellaneous Medical Problems (unknown - pt is deaf/mute, significant other does not know) - Surgical History Cardiac Surgeries: Comment Only: Femoral-Popliteal Bypass Graft (unknown - pt is deaf/mute, significant other does not know), Cardiac Catheterization (unknown - pt is deaf/ mute, significant other does not know), Cardiac Surgery (unknown - pt is deaf/ mute, significant other does not know), Carotid Endarterectomy (unknown - pt is deaf/mute, significant other does not know), Internal Defibrillator (unknown - pt is deaf/mute, significant other does not know), Vascular Access Devices ( unknown - pt is deaf/mute, significant other does not know) Thoracic Surgeries: Comment Only: Organ Transplant (unknown - pt is deaf/mute, significant other does not know) HEENT Surgeries: Comment Only: Carotid Endarterectomy (unknown - pt is deaf/mute, significant other does not know), Eye Surgery (unknown - pt is deaf/mute, significant other does not know), Tonsilectomy & Adenoidectomy (unknown - pt is deaf/mute, significant other does not know) Abdominal Surgeries: Comment Only: Abdominal Surgery (unknown - pt is deaf/mute, significant other does not know), Hernia Repair (unknown - pt is deaf/mute, significant other does not know), Splenectomy (unknown - pt is deaf/mute, significant other does not know) Reproductive Surgeries: Comment Only: Genitourinary Surgery (unknown - pt is deaf/mute, significant other does not know), Gynecologic Surgery (unknown - pt is deaf/mute, significant other does not know) - Social History Smoking Status: Unknown if ever smoked Frequency of Alcohol Use: None Type of Drug Use: None Results - Labs CBC & BMP: 01/10/17 01:43 01/10/17 01:43 Labs: Her PO2 is 180 with a PCO2 of 35 and a pH of 7.23 - Diagnostic Findings Procedure: Chest x-ray: image reviewed by me, report reviewed by me (Chest x- ray is clear)
[2017-01-10] MEDS ORDERED: VANCOMYCIN INJ 500 MG in SODIUM CHLORIDE 0.9% 100 ML IV ONE (13:00)
[2017-01-10] MEDS: PROPOFOL 1,000 MG/100 ML BOTTLE IV SCH ×2 (13:06→23:34)
--- NOTE | 2017-01-10 13:36 | Event Note ---
The patient has been accepted in transfer to the hospitalist service Postoperatively for management of her life-threatening medical problems. The patient has diabetes, acute renal failure, severe sepsis with shock. She is receiving IV fluids and IV antibiotics. She underwent extensive debridement in the operating room this morning. She remains on the ventilator. Dr. Chamberlain has seen her for pulmonary. Monitor urine output and continue IV fluid hydration. Repeat labs and repeat lactic acid have been ordered. Initial lactic acid was 2.5 at 730 this morning. She will likely need LTAC evaluation. I have not met with her family yet. Please see my consultation note performed earlier this morning. She is under my service and Dr. Latrice WATSON will continue to follow her as a it security consultant.
[2017-01-10 14:19] LABS: Lactic Acid 2.3 MMOL/L (0.4-2.0)
[2017-01-10 14:32] LABS: Albumin 1.3 G/DL (3.4-5.0); Calcium 7.4 MG/DL (8.5-10.1); Osmolality,Calculated 288.7 MOS/KG (273-304); Potassium 3.8 MMOL/L (3.5-5.1)
--- NOTE | 2017-01-10 16:05 | Event Note ---
Overall she looks better. She is sedated on the ventilator. She is still requiring levo fed. She appears to be volume resuscitated and her CVP is running 8-14. She has not had bleeding from her large open wound. We will take down the dressing in the morning and see if any further debridement is needed. We can go ahead and start low-dose tube feedings. Her prognosis is guarded at this point and she remains critically ill as expected from her severe sepsis. It is encouraging to see urine output since she had acute renal failure on admission. She did have some lactic acidosis preoperatively and we can recheck this as well.
--- NOTE | 2017-01-10 17:18 | Infectious Disease Consult ---
Assessment and Plan (1) Septic shock Status: Acute Assessment and plan: This is due to necrotizing fasciitis. Would not be surprised if blood cultures , positive. She is on less vasopressor support this evening since her surgery earlier. Continue empiric broad-spectrum antibiotics and follow-up cultures. Current Visit: Yes (2) Acute renal failure Status: Acute Assessment and plan: Acute versus acute on chronic. Hypotension from her septic shock likely main contributor. Adjust antibiotic doses for renal function. Current Visit: Yes (3) Atrial fibrillation with rapid ventricular response Status: Acute Current Visit: Yes (4) DM type 2 (diabetes mellitus, type 2) Status: Acute Assessment and plan: Newly diagnosed by history. This is likely predisposing factor for the necrotizing fasciitis. Current Visit: Yes (5) Necrotizing fasciitis Status: Acute Assessment and plan: Extensive infection, necrosis involving the left groin/perineal area. Recommendations: 1. Escalate from Unasyn to meropenem pending cultures, and case of resistant organisms such as ESBL producing gram negatives. Meropenem renally dosed at 1 g every 12 hours. 2. Agree with clindamycin and also the dose of vancomycin given early today 3. Check sed rate and C-reactive protein baseline [in the morning]; will use these to monitor response to treatment 3. Follow-up cultures and adjust antibiotics accordingly Thank you very much for the consult. Will follow. Patient critically ill with guarded prognosis Current Visit: Yes History of Present Illness Chief complaint: Necrotizing fasciitis History of present illness: History obtained from review of the records as patient is on the vent sedated. She is also deaf and mute. Ms. Mckeon is a 61 year old female who apparently developed a wound over her mons pubis about 2 weeks ago. When she sought medical attention she was diagnosed with diabetes at that time. She was on oral antibiotics at the [facility] but there was no significant improvement. She came to the hospital because of pain to the left hip. She was noted to have gas in the subcutaneous tissues and ultimately assessed as having necrotizing fasciitis. Patient was hypotensive this morning requiring vasopressor support. She was taken to the operating room and had extensive debridement of necrotic tissue from the mons pubis area down to the left inguinal area and labia majora. Patient is on broad-spectrum antibiotics and remains on the vent postoperatively. I am asked to assist with antibiotic management. Patient came off vasopressors postoperatively however after she woke up she was agitated and had to be sedated. After sedation her blood pressure dropped a bit and so she was restarted on pressors this evening. Home Medications Medication Instructions Recorded Confirmed Type Acetaminophen 2 tablet PO Q6HR PRN 01/10/17 01/10/17 History Metformin HCl 1 tablet PO BID 01/10/17 01/10/17 History cefUROXime axetil [Cefuroxime] 1 tablet PO BID 01/10/17 01/10/17 History Allergies Allergy/AdvReac Type Severity Reaction Status Date / Time No Known Allergies Allergy Unverified 01/10/17 01:13 ROS unobtainable: due to endotracheal tube Medical,Surgical,& Family Hx - Medical History Cardio: Comment Only: Cardiovascular Problems (unknown - pt is deaf/mute, significant other does not know) HEENT: History of: Ear Problem (DEAF) Endocrine: History of: Diabetes Mellitus (IDDM), Diabetes Mellitus (NIDDM) Respiratory: Comment Only: Respiratory Problems (unknown - pt is deaf/mute, significant other does not know) Renal: Comment Only: Renal Problems (unknown - pt is deaf/mute, significant other does not know) Genitourinary: Comment Only: Bladder Problem (unknown - pt is deaf/mute, significant other does not know) Gastrointestinal: Comment Only: GI Problems (unknown - pt is deaf/mute, significant other does not know) Musculoskeletal: Comment Only: Musculoskeletal Problems (unknown - pt is deaf/mute, significant other does not know) Hematology: Comment Only: Bleeding Problems (unknown - pt is deaf/mute, significant other does not know) Reproductive: Comment Only: Reproductive Problems (unknown - pt is deaf/mute, significant other does not know) Other: Comment Only: Miscellaneous Medical Problems (unknown - pt is deaf/mute, significant other does not know) - Surgical History Cardiac Surgeries: Comment Only: Femoral-Popliteal Bypass Graft (unknown - pt is deaf/mute, significant other does not know), Cardiac Catheterization (unknown - pt is deaf/ mute, significant other does not know), Cardiac Surgery (unknown - pt is deaf/ mute, significant other does not know), Carotid Endarterectomy (unknown - pt is deaf/mute, significant other does not know), Internal Defibrillator (unknown - pt is deaf/mute, significant other does not know), Vascular Access Devices ( unknown - pt is deaf/mute, significant other does not know) Thoracic Surgeries: Comment Only: Organ Transplant (unknown - pt is deaf/mute, significant other does not know) HEENT Surgeries: Comment Only: Carotid Endarterectomy (unknown - pt is deaf/mute, significant other does not know), Eye Surgery (unknown - pt is deaf/mute, significant other does not know), Tonsilectomy & Adenoidectomy (unknown - pt is deaf/mute, significant other does not know) Abdominal Surgeries: Comment Only: Abdominal Surgery (unknown - pt is deaf/mute, significant other does not know), Hernia Repair (unknown - pt is deaf/mute, significant other does not know), Splenectomy (unknown - pt is deaf/mute, significant other does not know) Reproductive Surgeries: Comment Only: Genitourinary Surgery (unknown - pt is deaf/mute, significant other does not know), Gynecologic Surgery (unknown - pt is deaf/mute, significant other does not know) - Social History Smoking Status: Unknown if ever smoked Frequency of Alcohol Use: None Type of Drug Use: None Infectious Disease Exam H&P - Constitutional Vitals: Vital Signs Temp Pulse Resp BP Pulse Ox 97.5 F L 87 13 103/47 98 01/10/17 11:00 01/10/17 14:00 01/10/17 15:15 01/10/17 14:15 01/10/17 14:00 Intake and Output 01/10/17 01/10/17 01/10/17 07:59 15:59 23:59 Intake Total 1035 / 1035 2785 / 2785 Output Total 10 / 10 Balance 1025 / 1025 2785 / 2785 Intake: IV 1035 / 1035 2785 / 2785 Unasyn 3,000 mg In Ns 100 100 / 100 ml @ 200 mls/hr IV Q12H EFRAIN Rx#:[id number] Cleocin Inj 900 mg In 100 / 100 Premix 1 Each @ 100 mls/ hr IV Q8H EFRAIN Rx#: [id number] Cardizem Inj 100 mg In Ns 30 / 30 65 / 65 100 ml @ 10 MG/HR 10 mls /hr IV TITRATE EFRAIN Rx#: [id number] Lr 1,000 ml @ 125 mls/hr 1000 / 1000 1000 / 1000 IV .Q8H EFRAIN Rx#: [id number] Magnesium Sulf Cheng 2 gm 50 / 50 /50 ml In Premix 1 Each @ 25 mls/hr IV ONCE ONE Rx #:[id number] Levophed 8 mg In Ns 242 5 / 5 115 / 115 ml @ 2 MCG/MIN 3.75 mls/ hr IV TITRATE EFRAIN Rx#: [id number] Potassium Chloride Cheng 100 / 100 10 Meq/100 ml In Premix 1 Each @ 100 mls/hr IV ONCE ONE Rx#:[id number] DIPRIVAN 1,000 mg In 100 5 / 5 ml @ 5 MCG/KG/MIN 2.571 mls/hr IV TITRATE EFRAIN Rx# :[id number] Ns 1,000 ml @ 999 mls/hr 1000 / 1000 IV BOLUS ONE Rx#: [id number] Vancomycin Inj 1,000 mg 250 / 250 In Ns 250 ml @ 250 mls/hr IV ONCE ONE Rx#: [id number] Output: Urine 10 / 10 Other: Voiding Method Indwelling Catheter # Voids 0 # Bowel Movements 0 Weight 85.684 kg Patient Weight 01/10/17 23:59 Weight 85.684 kg Exam: General: Patient sedated on the vent HEENT: Mucous membranes pink and moist, anicteric acyanotic, DEBBIE, ET tube in situ Neck: Supple, no thyroid gland enlargement, no lymphadenopathy Respiratory system: Breath sounds vesicular, no crepitations or wheezes Cardiovascular: Normal S1 and S2, no murmurs appreciated Abdomen: Normal bowel sounds, soft nontender throughout, no organomegaly or mass Genitourinary: Bandages over the left groin and perineal area, clear but concentrated urine from Manzo catheter Extremities: Mild bilateral lower extremity edema Skin: No rash Reports - Labs CBC & BMP: 01/10/17 01:43 01/10/17 13:40 Labs: Laboratory Results - last 24 hr 01/10/17 01/10/17 01/10/17 01:43 01:43 01:43 WBC 17.1 H RBC 4.40 Hgb 12.8 Hct 37.0 MCV 84.1 L MCH 29 MCHC 34.6 RDW 13.7 Plt Count 297 MPV 10.2 Neut % (Auto) 84.7 H Lymph % (Auto) 5.3 L [place] % (Auto) 5.7 Eos % (Auto) 0.2 Baso % (Auto) 0.6 Neut # (Auto) 14.5 H Lymph # (Auto) 0.9 L [place] # (Auto) 1.0 H Eos # (Auto) 0.0 Baso # (Auto) 0.1 Total Counted 100 Immature Gran % 3.5 Nucleated RBC % 0.0 Immature Gran # 0.60 Segmented Neutrophils 84 Band Neutrophils 5 Lymphocytes 9 L Monocytes 2 Nucleated RBCs # 0.00 Platelet Estimate Normal ABG pH ABG pCO2 ABG pO2 ABG HCO3 ABG Total CO2 ABG O2 Saturation ABG Base Excess Sodium 136 Potassium 3.8 Chloride 100 Carbon Dioxide 19 L Anion Gap 20.8 H BUN 45 H Creatinine 2.90 H GFR Calculation 21 BUN/Creatinine Ratio 15.00 Glucose 170 H POC Glucose Calculated Osmolality 287.0 Lactic Acid Calcium 7.9 L Magnesium 1.4 L Total Bilirubin AST ALT Alkaline Phosphatase Total Creatine Kinase CK-MB (CK-2) Troponin I Total Protein Albumin Globulin Albumin/Globulin Ratio Free T4 1.45 TSH 3rd Generation 1.230 01/10/17 01/10/17 01/10/17 06:15 07:13 07:29 WBC RBC Hgb Hct MCV MCH MCHC RDW Plt Count MPV Neut % (Auto) Lymph % (Auto) [place] % (Auto) Eos % (Auto) Baso % (Auto) Neut # (Auto) Lymph # (Auto) [place] # (Auto) Eos # (Auto) Baso # (Auto) Total Counted Immature Gran % Nucleated RBC % Immature Gran # Segmented Neutrophils Band Neutrophils Lymphocytes Monocytes Nucleated RBCs # Platelet Estimate ABG pH ABG pCO2 ABG pO2 ABG HCO3 ABG Total CO2 ABG O2 Saturation ABG Base Excess Sodium Potassium Chloride Carbon Dioxide Anion Gap BUN Creatinine GFR Calculation BUN/Creatinine Ratio Glucose POC Glucose 170 H Calculated Osmolality Lactic Acid 2.5 H Calcium Magnesium Total Bilirubin AST ALT Alkaline Phosphatase Total Creatine Kinase 18 L CK-MB (CK-2) < 1.0 Troponin I < 0.015 Total Protein Albumin Globulin Albumin/Globulin Ratio Free T4 TSH 3rd Generation 01/10/17 01/10/17 01/10/17 11:09 11:21 13:40 WBC RBC Hgb Hct MCV MCH MCHC RDW Plt Count MPV Neut % (Auto) Lymph % (Auto) [place] % (Auto) Eos % (Auto) Baso % (Auto) Neut # (Auto) Lymph # (Auto) [place] # (Auto) Eos # (Auto) Baso # (Auto) Total Counted Immature Gran % Nucleated RBC % Immature Gran # Segmented Neutrophils Band Neutrophils Lymphocytes Monocytes Nucleated RBCs # Platelet Estimate ABG pH 7.239 L ABG pCO2 35.3 ABG pO2 180.0 H ABG HCO3 15.4 L ABG Total CO2 13.8 L ABG O2 Saturation 98.7 ABG Base Excess -11.6 L Sodium 138 Potassium 3.8 Chloride 105 Carbon Dioxide 19 L Anion Gap 17.8 H BUN 45 H Creatinine 2.60 H GFR Calculation 21 BUN/Creatinine Ratio 17.00 Glucose 141 H POC Glucose 143 H Calculated Osmolality 288.7 Lactic Acid 2.3 H Calcium 7.4 L Magnesium Total Bilirubin 1.00 AST 31 ALT 16 Alkaline Phosphatase 131 H Total Creatine Kinase CK-MB (CK-2) Troponin I Total Protein 5.0 L Albumin 1.3 L Globulin 3.7 H Albumin/Globulin Ratio 0.3 L Free T4 TSH 3rd Generation - Diagnostic Findings Procedure: Chest x-ray: image reviewed by me, report reviewed by me (Increased interstitial markings, no obvious consolidation), CT: report reviewed by me (CT hip with gas and underlying tissues on the left)
[2017-01-10] MEDS: MEROPENEM 500 MG in SODIUM CHLORIDE 0.9% 100 ML IV SCH (17:38)
--- NOTE | 2017-01-10 18:11 | ECHO Report ---
Violetta Mckeon Exam Date: 01/10/2017 07:17 Referring Physician: Technologist: aaron Ramos ARDMS, RVT Age: 61 Ht (in): 62 Wt (lb): 188 Gender: F Exam Location: [facility] Echo Indications: Atrial fibrillation BP: 71 / 55 HR: 82 Rhythm: Atrial fibrillation Technical Quality: difficult scan IMPRESSIONS Left ventricular ejection fraction is estimated at 60 %. Grade I diastolic dysfunction. Tricuspid regurgitation velocities suggest a RVSP of 59 mmHg. MEASUREMENTS (Male / Female) Normal Values 2D ECHO LV Diastolic Diameter PLAX 4.4 cm 4.2 - 5.9 / 3.9 - 5.3 cm LV Systolic Diameter PLAX 2.4 cm LV Fractional Shortening PLAX 44.5 % IVS Diastolic Thickness 1.3 cm 0.6 - 1.0 / 0.6 - 0.9 cm LVPW Diastolic Thickness 1.3 cm 0.6 - 1.0 / 0.6 - 0.9 cm RV Internal Dim ED PLAX 3.4 cm Aortic Root Diameter 3.4 cm LA Systolic Diameter LX 3.6 cm 3.0 - 4.0 / 2.7 - 3.8 cm DOPPLER TR Peak Velocity 349.0 cm/s TR Peak Gradient 48.7 mmHg FINDINGS Left Ventricle Normal left ventricular cavity size. Mild left ventricular hypertrophy. Left ventricular ejection fraction is estimated at 60 %. Grade I diastolic dysfunction. Right Ventricle Mildly increased right ventricular size. Right Atrium The right atrium is mildly enlarged. Left Atrium The left atrium is normal in size. Mitral Valve Morphologically normal mitral valve. Trace mitral valve regurgitation. Aortic Valve Morphologically normal aortic valve without significant sclerosis or stenosis. There is no aortic regurgitation. Tricuspid Valve Morphologically normal tricuspid valve. Mild tricuspid valve regurgitation. Tricuspid regurgitation velocities suggest a RVSP of 59 mmHg. Pulmonic Valve Pulmonic valve not well visualized. Pericardium Normal pericardium without effusion. Aorta Normal ascending aorta dimension. Macie Bowens (Electronically Signed) Final Date: 10 January 2017 18:10
[2017-01-10] MEDS ORDERED: LACTATED RINGERS 1,000 ML IV ONE (18:35)
[2017-01-11] MEDS: LACTATED RINGERS 1,000 ML IV SCH ×5 (00:30→18:03)
[2017-01-11] MEDS: INSULIN REGULAR 100 UNIT/ML SUBCUT SCH ×4 (00:43→17:49)
[2017-01-11] MEDS: CLINDAMYCIN INJ 900 MG in PREMIX 1 EACH IV SCH ×3 (00:43→16:56)
[2017-01-11] MEDS: DILTIAZEM INJ 100 MG in SODIUM CHLORIDE 0.9% 100 ML IV SCH (03:12)
[2017-01-11] MEDS: NOREPINEPHRINE 8 MG in SODIUM CHLORIDE 0.9% 242 ML IV SCH ×2 (04:41→15:27)
[2017-01-11 04:50] LABS: ABG Base Excess -10.4 MMOL/L (-2.5-2.5); ABG HCO3 15.6 MMOL/L (20-26); ABG Oxygen Saturation 98.9 % (95-100); ABG PH 7.268 (7.35-7.45); ABG PO2 213.8 MM HG (80-95); ABG TCO2 16.7 MMOL/L (23-27)
[2017-01-11 05:01] LABS: Basophils # 0.1 10*3/uL (0.0-0.2); Basophils % 0.5 % (0.0-0.8); Eosinophils # 0.1 10*3/uL (0.0-0.87); Eosinophils % 0.5 % (0.00-10.9); Hematocrit 29.7 VOL% (35.7-47.0); Immature Granulocytes % 4.2 %; Immature Granulocytes Absolute 0.63 #; Lymphocytes # 1.7 10*3/uL (1.4-4.0); Lymphocytes % 10.9 % (21.3-54.2); Mean Corpuscular HGB Conc 33.7 GM/DL (32-36); Mean Corpuscular Hemoglobin 29 PG (27-34); Mean Corpuscular Volume 86.6 FL (87-102); Mean Platelet Volume 10.2 FL (9.6-12.0); Monocytes # 1.3 10*3/uL (0.11-0.8); Monocytes % 8.7 % (1.7-12.7); Neutrophils # 11.4 10*3/uL (1.4-7.4); Neutrophils % 75.2 % (38.7-73.9); Platelet Count 237 T/CUMM (130-400); Red Blood Count 3.43 MC/CUMM (3.8-5.5); Red Cell Distribution Width 14.4 % (9.3-17.3); White Blood Count 15.1 T/CUMM (4-12)
[2017-01-11 05:19] LABS: Albumin 1.3 G/DL (3.4-5.0); Bilirubin,Total 0.8 MG/DL (0.2-1.0); Calcium 7.4 MG/DL (8.5-10.1); Magnesium 2.1 MG/DL (1.8-2.4); Osmolality,Calculated 288.8 MOS/KG (273-304); Total Protein 4.9 G/DL (6.4-8.3)
[2017-01-11 05:23] LABS: Troponin I Only < 0.015 NG/ML (0.00-0.045)
[2017-01-11 05:25] LABS: Band Neutrophils 4 % (0-10); Lymphocytes 8 % (20-55); Platelet Estimate Normal; Segmented Neutrophils 85 % (50-85); Total Cells Counted 100
[2017-01-11] MEDS: MEROPENEM 500 MG in SODIUM CHLORIDE 0.9% 100 ML IV SCH ×2 (06:22→17:20)
--- NOTE | 2017-01-11 07:07 | XRay Report ---
Exam: XR chest 1V portable Date: 01/11/2017 4:00 AM Indication: Follow-up ventilator respiratory failure Comparison: 01/10/2017 Technical: AP portable Findings: Endotracheal tube nasogastric tube and right IJ catheter present. Low volume effusions are present with mild cardiomegaly with external cardiac leads present. Minimal fluid and thickening of the minor fissure. Mediastinum is otherwise intact. No pneumothorax Impression: 1. Cardiomegaly with low volume effusions 2. Interval placement endotracheal tube at the aortic knob and nasogastric tube in the stomach with stable appearance of the right IJ catheter. PROCEDURE INTERPRETED AT [facility] DEPARTMENT OF RADIOLOGY Final Report Signed by: Dr. Sebastián Hope
--- NOTE | 2017-01-11 07:30 | Cardiology Progress Note ---
Cardiology - PN: Subj Interval history: Cardiology note 61-year-old woman diabetic admitted with septic shock and acute renal failure and rapid atrial fibrillation. Underwent extensive debridement of the perineum left groin and abdominal wall yesterday for necrotizing fasciitis. Patient has converted chemically to sinus rhythm with IV Cardizem. Blood pressure 124/50 on 10 mics levo fed. O2 sat 99 on 50% FiO2 Telemetry shows sinus rhythm in the 75-80 range Regular rhythm no murmur Decreased breath sounds basilar rhonchi Abdomen nontender CVP running 12-14 Good urine output Lab data today White count 15.1 hemoglobin 10.0 hematocrit 29.7 Sodium 137 potassium 4.0 chloride 107 CO2 16 BUN 45 creatinine down to 2.40 Hemoglobin A1c level 11.7 Impression Necrotizing fasciitis Septic shock Acute renal failure New onset atrial fibrillation-converted with IV Cardizem Type 2 diabetes poor control Obesity Echo Doppler showed ejection fraction of 60% with dilated left atrium and moderate TR PA pressure about 55 Plan Broad-spectrum antibiotics Further debridement today Blood cultures negative at 24 hours Levo fed Exam (Progress Note) - Constitutional Vitals: Period Temp Pulse Resp BP Sys/Parker Pulse Ox Last 24 Hr 97.1 F-97.5 F 69-97 10-19 66-177/37-84 98-99 Result/EKG - Labs CBC & BMP: 01/11/17 04:47 01/11/17 04:47 Labs: Laboratory Results - last 24 hr 01/10/17 01/10/17 01/10/17 07:13 07:29 11:09 WBC RBC Hgb Hct MCV MCH MCHC RDW Plt Count MPV Neut % (Auto) Lymph % (Auto) [place] % (Auto) Eos % (Auto) Baso % (Auto) Neut # (Auto) Lymph # (Auto) [place] # (Auto) Eos # (Auto) Baso # (Auto) Total Counted Immature Gran % Nucleated RBC % Immature Gran # Segmented Neutrophils Band Neutrophils Lymphocytes Monocytes Nucleated RBCs # Platelet Estimate Immature Plt Fraction ESR Westergren ABG pH 7.239 L ABG pCO2 35.3 ABG pO2 180.0 H ABG HCO3 15.4 L ABG Total CO2 13.8 L ABG O2 Saturation 98.7 ABG Base Excess -11.6 L Sodium Potassium Chloride Carbon Dioxide Anion Gap BUN Creatinine GFR Calculation BUN/Creatinine Ratio Glucose POC Glucose Hemoglobin A1c Calculated Osmolality Lactic Acid 2.5 H Calcium Magnesium Total Bilirubin AST ALT Alkaline Phosphatase Total Creatine Kinase 18 L CK-MB (CK-2) < 1.0 Troponin I < 0.015 C-Reactive Protein Total Protein Albumin Globulin Albumin/Globulin Ratio 01/10/17 01/10/17 01/10/17 11:21 13:40 17:29 WBC RBC Hgb Hct MCV MCH MCHC RDW Plt Count MPV Neut % (Auto) Lymph % (Auto) [place] % (Auto) Eos % (Auto) Baso % (Auto) Neut # (Auto) Lymph # (Auto) [place] # (Auto) Eos # (Auto) Baso # (Auto) Total Counted Immature Gran % Nucleated RBC % Immature Gran # Segmented Neutrophils Band Neutrophils Lymphocytes Monocytes Nucleated RBCs # Platelet Estimate Immature Plt Fraction ESR Westergren ABG pH ABG pCO2 ABG pO2 ABG HCO3 ABG Total CO2 ABG O2 Saturation ABG Base Excess Sodium 138 Potassium 3.8 Chloride 105 Carbon Dioxide 19 L Anion Gap 17.8 H BUN 45 H Creatinine 2.60 H GFR Calculation 21 BUN/Creatinine Ratio 17.00 Glucose 141 H POC Glucose 143 H 151 H Hemoglobin A1c Calculated Osmolality 288.7 Lactic Acid 2.3 H Calcium 7.4 L Magnesium Total Bilirubin 1.00 AST 31 ALT 16 Alkaline Phosphatase 131 H Total Creatine Kinase CK-MB (CK-2) Troponin I C-Reactive Protein Total Protein 5.0 L Albumin 1.3 L Globulin 3.7 H Albumin/Globulin Ratio 0.3 L 01/11/17 01/11/17 01/11/17 00:17 03:40 04:47 WBC RBC Hgb Hct MCV MCH MCHC RDW Plt Count MPV Neut % (Auto) Lymph % (Auto) [place] % (Auto) Eos % (Auto) Baso % (Auto) Neut # (Auto) Lymph # (Auto) [place] # (Auto) Eos # (Auto) Baso # (Auto) Total Counted Immature Gran % Nucleated RBC % Immature Gran # Segmented Neutrophils Band Neutrophils Lymphocytes Monocytes Nucleated RBCs # Platelet Estimate Immature Plt Fraction ESR Westergren ABG pH 7.268 L ABG pCO2 35.0 ABG pO2 213.8 H ABG HCO3 15.6 L ABG Total CO2 16.7 L ABG O2 Saturation 98.9 ABG Base Excess -10.4 L Sodium Potassium Chloride Carbon Dioxide Anion Gap BUN Creatinine GFR Calculation BUN/Creatinine Ratio Glucose POC Glucose 173 H Hemoglobin A1c Calculated Osmolality Lactic Acid Calcium Magnesium Total Bilirubin AST ALT Alkaline Phosphatase Total Creatine Kinase 46 D CK-MB (CK-2) 1.4 Troponin I < 0.015 C-Reactive Protein Total Protein Albumin Globulin Albumin/Globulin Ratio 01/11/17 01/11/17 01/11/17 04:47 04:47 04:47 WBC 15.1 H RBC 3.43 L D Hgb 10.0 L D Hct 29.7 L MCV 86.6 L MCH 29 MCHC 33.7 RDW 14.4 Plt Count 237 D MPV 10.2 Neut % (Auto) 75.2 H Lymph % (Auto) 10.9 L [place] % (Auto) 8.7 Eos % (Auto) 0.5 Baso % (Auto) 0.5 Neut # (Auto) 11.4 H Lymph # (Auto) 1.7 [place] # (Auto) 1.3 H Eos # (Auto) 0.1 Baso # (Auto) 0.1 Total Counted 100 Immature Gran % 4.2 Nucleated RBC % 0.0 Immature Gran # 0.63 Segmented Neutrophils 85 Band Neutrophils 4 Lymphocytes 8 L Monocytes 3 Nucleated RBCs # 0.00 Platelet Estimate Normal Immature Plt Fraction 0.0 ESR Westergren ABG pH ABG pCO2 ABG pO2 ABG HCO3 ABG Total CO2 ABG O2 Saturation ABG Base Excess Sodium 137 Potassium 4.0 Chloride 107 Carbon Dioxide 16 L Anion Gap 18.0 H BUN 45 H Creatinine 2.40 H GFR Calculation 23 BUN/Creatinine Ratio 18.00 Glucose 178 H POC Glucose Hemoglobin A1c 11.7 H Calculated Osmolality 288.8 Lactic Acid Calcium 7.4 L Magnesium 2.1 Total Bilirubin 0.80 AST 31 ALT 15 Alkaline Phosphatase 134 H Total Creatine Kinase CK-MB (CK-2) Troponin I C-Reactive Protein Total Protein 4.9 L Albumin 1.3 L Globulin 3.6 H Albumin/Globulin Ratio 0.3 L 01/11/17 01/11/17 04:47 04:47 WBC RBC Hgb Hct MCV MCH MCHC RDW Plt Count MPV Neut % (Auto) Lymph % (Auto) [place] % (Auto) Eos % (Auto) Baso % (Auto) Neut # (Auto) Lymph # (Auto) [place] # (Auto) Eos # (Auto) Baso # (Auto) Total Counted Immature Gran % Nucleated RBC % Immature Gran # Segmented Neutrophils Band Neutrophils Lymphocytes Monocytes Nucleated RBCs # Platelet Estimate Immature Plt Fraction ESR Westergren 115 H ABG pH ABG pCO2 ABG pO2 ABG HCO3 ABG Total CO2 ABG O2 Saturation ABG Base Excess Sodium Potassium Chloride Carbon Dioxide Anion Gap BUN Creatinine GFR Calculation BUN/Creatinine Ratio Glucose POC Glucose Hemoglobin A1c Calculated Osmolality Lactic Acid Calcium Magnesium Total Bilirubin AST ALT Alkaline Phosphatase Total Creatine Kinase CK-MB (CK-2) Troponin I C-Reactive Protein 35.60 H Total Protein Albumin Globulin Albumin/Globulin Ratio
--- NOTE | 2017-01-11 07:30 | Event Note ---
She seems better hemodynamically and is requiring less levo fed. She still has some metabolic acidosis. She has some drainage from her wound and we will change her dressing and debride further if needed in the operating room. It appears that her renal function is preserved and her creatinine has not risen further. Is making urine.
--- NOTE | 2017-01-11 08:11 | Pulmonology Progress Note ---
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 She has had extensive debridement and has a large open wound. She was septic but is doing better now. She is a poorly controlled diabetic. She will likely go back to surgery for further debridement. She is stable on the ventilator at present. Her oxygenation is excellent. Her creatinine is down to 2.4 and she does have some urine output. She is comfortable on the ventilator at present. She is on very low-dose Levophed. Exam (Progress Note) - Constitutional Vitals: Period Temp Pulse Resp BP Sys/Parker Pulse Ox Last 24 Hr 97.1 F-97.5 F 69-97 10-19 66-177/37-84 98-99 Exam: General appearance: no acute distress (Patient looks reasonably comfortable on the ventilator. She is sedated at present.), over weight - Head Head exam: Present: normal inspection - Eye Eye exam: Present: EOMI. Absent: scleral icterus Pupils: Present: DEBBIE - ENT ENT exam: Present: other (ET tube is in good position) - Neck Neck exam: Present: normal inspection - Respiratory Respiratory exam: Present: clear to auscultation bilaterally, she has good breath sounds bilaterally. - Cardiovascular Cardiovascular exam: Present: irregular rhythm, tachycardia. Absent: systolic murmur - GI/Abdominal GI/Abdominal exam: Present: hypoactive bowel sounds, soft. Absent: organomegaly , tenderness - Extremities Exam Extremities exam: Absent: calf tenderness, edema - Neurological Exam Neurological exam: Present: She is sedated on the ventilator. - Psychiatric Psychiatric exam: Absent: anxious - Skin Skin exam: Present: warm, dry Results - Labs CBC & BMP: 01/11/17 04:47 01/11/17 04:47 Labs: PO2 is 213 with a PCO2 of 35 and a pH of 7.26 - Diagnostic Findings Procedure: Chest x-ray: image reviewed by me, report reviewed by me (Chest x- ray looks unremarkable with no infiltrates.) Assessment and Plan (1) Necrotizing fasciitis Status: Acute Assessment and plan: Patient has extensive necrotizing fasciitis and has had significant surgical debridement. She will remain on the ventilator for now. She likely will require repeated trips to the OR. Current Visit: Yes (2) Severe sepsis Status: Acute Assessment and plan: She is getting broad-spectrum antibiotics and fluids. She is hemodynamically more stable and is starting to make better urine output. She is on very low- dose Levophed. Current Visit: Yes (3) Acute renal failure Status: Acute Assessment and plan: The patient's creatinine is better at 2.4. Current Visit: Yes (4) Atrial fibrillation with rapid ventricular response Status: Acute Assessment and plan: The patient is back in a sinus rhythm now and her heart rate is better. Current Visit: Yes (5) DM type 2 (diabetes mellitus, type 2) Status: Acute Assessment and plan: The patient did not know she was a diabetic to last week. Her glucose is 198 now. Current Visit: Yes (6) Deaf-mutism Status: Chronic Assessment and plan: Communication may be difficult. Current Visit: Yes (7) On mechanically assisted ventilation Status: Acute Assessment and plan: She is stable on the ventilator and will probably need to go back to the OR fairly frequently for now. We will continue ventilatory support. Current Visit: Yes
[2017-01-11] MEDS ORDERED: DEXTROSE 50% 25 GM/50 ML SYRINGE IV PRN ×2 (08:30→10:30)
[2017-01-11] MEDS: PANTOPRAZOLE 40 MG VIAL IV SCH (09:49)
--- NOTE | 2017-01-11 11:18 | Infectious Disease Progress ---
Assessment and Plan (1) Septic shock Status: Acute Assessment and plan: This is due to necrotizing fasciitis. She is on less vasopressor support this evening since her surgery. Continue empiric broad-spectrum antibiotics and follow-up cultures. Current Visit: Yes (2) Acute renal failure Status: Acute Assessment and plan: Acute versus acute on chronic. Hypotension from her septic shock likely main contributor. Renal function incrementally improved since yesterday evening after dose of vancomycin. Current Visit: Yes (3) Atrial fibrillation with rapid ventricular response Status: Acute Current Visit: Yes (4) DM type 2 (diabetes mellitus, type 2) Status: Acute Assessment and plan: Newly diagnosed by history. This is likely predisposing factor for the necrotizing fasciitis. Current Visit: Yes (5) Necrotizing fasciitis Status: Acute Assessment and plan: Extensive infection, necrosis involving the left groin/perineal area. Recommendations: Continue current antibiotics with adjustments depending on change in renal function. Aggressive wound care. Follow-up pending cultures. Current Visit: Yes Infectious Disease - PN: Subj Interval history: Patient has not had any fever since admission, her process of being weaned off. She still has some drainage from her wounds, repeat debridement being planned for later probably. Infectious Disease Exam (PN) - Constitutional Vitals: Temp Pulse Resp BP Pulse Ox 97.1 F L 67 10 L 109/52 100 01/11/17 08:00 01/11/17 10:15 01/11/17 11:11 01/11/17 10:15 01/11/17 10:00 General appearance: no acute distress (Patient looks reasonably comfortable on the ventilator.), over weight Exam: General appearance: Sedated on vent - Eye Eye exam: Present: EOMI. no icterus Pupils: Present: DEBBIE - ENT ENT exam: ET tube in situ - Respiratory Respiratory exam: vesicular BS, no crepitations or wheezes - Cardiovascular Cardiovascular exam: regular rate and rhythm, no murmurs - GI/Abdominal GI/Abdominal exam: normal bowel sounds, soft, non-tender, no organomegaly or mass - Wounds bandaged - Extremities Exam Extremities exam: no edema - Skin Skin exam: no rash Results - Labs CBC & BMP: 01/11/17 04:47 01/11/17 04:47 Lab Results: I have reviewed the past 24 hour labs (Blood cultures negative at day 1) Quality Measures - VTE Contraindication to Pharmacological VTE Prophylaxis: High Risk of Bleeding
--- NOTE | 2017-01-11 11:36 | Pathology Report from [facility] ---
[facility] [place] ACCESSION # : [id number] PATIENT NAME : Violetta Mckeon ORDERING DR : FERNANDO CAM JR, MD CLINICAL HX: Necrotizing tissue faciatis POST-OP DX: Same SPECIMEN INFO: Debrided tissue LT groin GROSS DESCRIPTION: The specimen is received in formalin labeled with the patients name and consists of multiple large fragments of debrided subcutaneous tissue and skin measuring 18.5 x 19.6 x 6.2 cm. The subcutaneous tissue markedly ulcerated and gangrenous. [employer] tissue submitted in cassettes A thru C. DIAGNOSIS FOR VIOLETTA MCKEON: DEBRIDED TISSUE LEFT GROIN: Marked acute inflammation involving subcutaneous fat, hemorrhage, fibrosis. COLLECTED DATE: 01/10/2017 [facility] REPORT DATE: 01/11/2017 ELECTRONICALLY SIGNED BY: Venkata Ocampo M.D. 01/11/2017 - 9:54:19 [facility]
--- NOTE | 2017-01-11 11:46 | Hospitalist Progress Note ---
Hospitalist: Subjective Interval history: 61-year-old female who was admitted to critical care unit with septic shock due to necrotizing fasciitis of her perineum status post extensive debridement of perineum, left groin and abdominal wall yesterday and a large open wound. She is going again for surgical debridement to OR today. She remains on the ventilator due to respiratory failure due to sepsis. Exam - Constitutional Vitals: Period Temp Pulse Resp BP Sys/Parker Pulse Ox Last 24 Hr 97.1 F-97.5 F 67-93 10-19 66-146/37-90 98-100 Exam: Constitutional System: No distress Head: Normocephalic, atraumatic. Ears, Nose and Throat System: No pain or tenderness. No epistaxis or discharge Eyes System: Pupils equal, round, and reactive. Extraocular muscles intact. Neck: Supple, without adenopathy, No jugular venous distention. No thyromegaly, neck mass, or prior surgery apparent. Respiratory System: Chest clear to auscultation Cardiovascular System: Regular rhythm GI System: Abdomen soft, nontender. Normo active bowel sounds present. Neurological System: No discernable sensory deficit. Psychiatric System: Unable to perform secondary to being on vent Results - Labs CBC & BMP: 01/11/17 04:47 01/11/17 04:47 - Impressions Assessment and Plan (1) Septic shock Status: Acute Assessment and plan: This is due to necrotizing fasciitis. She is requiring less Levophed this evening since her surgery. Continue empiric broad-spectrum antibiotics and follow-up cultures. Current Visit: Yes (2) Acute hypoxemic respiratory failure Status: Acute Current Visit: Yes Assessment and plan: Continue mechanical ventilation (3) New onset paroxysmal atrial fibrillation with rapid ventricular response Status: Acute Current Visit: Yes Converted back to normal sinus rhythm with IV Cardizem (4) DM type 2 (diabetes mellitus, type 2) Status: Acute Assessment and plan: Newly diagnosed by history. This is likely predisposing factor for the necrotizing fasciitis. Overall was poorly controlled prior to admission as hemoglobin A1c was 11.7. However in the hospital is better controlled with sliding scale insulin, Current Visit: Yes (5) Necrotizing fasciitis involving Premium, left groin and abdomen Status: Acute Assessment and plan: Extensive infection, necrosis involving the left groin/perineal area. Continue IV vancomycin and clindamycin and meropenem and surgical debridement as necessary. (6) Acute kidney injury from ATN Status: Acute Assessment and plan: Acute versus acute on chronic. Hypotension from her septic shock likely main contributor to ATN. Renal function improved from yesterday Current Visit: Yes Quality Measures - VTE Contraindication to Pharmacological VTE Prophylaxis: High Risk of Bleeding
[2017-01-11] MEDS ORDERED: ROCURONIUM 100 MG/10 ML VIAL IV ONE (11:50)
--- NOTE | 2017-01-11 12:49 | Operative Note ---
Date of procedure: 01/11/17 Pre-op diagnosis: Necrotizing soft tissue infection of left labia majora and abdominal wall Post-op diagnosis: same Procedure: Excisional debridement of skin subcutaneous tissue fascia and muscle left lower quadrant abdominal wall 26 x 12 cm 2. Excisional debridement of skin subcutaneous tissue left labia majora 3 x 2 cm Findings and technique: After informed consent was obtained patient was brought the operating room and placed in supine position. After administration of general anesthesia with the patient on the ventilator the patient's abdomen and perineum and left thigh were prepped and draped in usual sterile fashion. The wound was inspected and the majority of the wound was viable. There were scattered areas of additional necrotic subcutaneous tissue in the inferior aspect of the wound but the major area of necrosis was superiorly in the left lower quadrant. This area had discoloration of the skin extending for about 8 cm superior to the previous skin edge. This skin and subcutaneous tissue was excised completely over an area of 26 x 12 cm. This included necrotic skin and subcutaneous tissue and some fascia deep to this. The cautery was used to achieve hemostasis. All nonviable tissue was excised. There was a small area of the left labia majora at the superior aspect of the labia which was excised as well removing 3 x 2 cm of skin and subcutaneous tissue. Good hemostasis obtained and the wound was irrigated and packed open with Kerlix rolls. Dressing was applied. She remained hemodynamically stable throughout the procedure but is still requiring levo fed. Anesthesia: GETA Surgeon / Physician: Tung Pollard III. Estimated blood loss: other (75 mL) Specimens: none sent Condition: stable Disposition: ICU Results - Labs CBC & BMP: 01/11/17 04:47 01/11/17 04:47 Discharge Plan - Discharge Medications No Action Acetaminophen 2 tablet PO Q6HR PRN PRN Reason: Pain cefUROXime axetil [Cefuroxime] 1 tablet PO BID Metformin HCl 1 tablet PO BID - Follow Up or Referral - Forms/Instructions
[2017-01-11] MEDS ORDERED: MIDAZOLAM 2 MG/2 ML VIAL ONE (13:26)
[2017-01-11] MEDS ORDERED: SEVOFLURANE 1 UNIT/15 MINUTE INH ONE (13:26)
--- NOTE | 2017-01-11 15:01 | Anesthesia Post-Op ---
Anesthesia Post OP - Post Ansesthetic Evaluation Patient seen in post op: Yes Resp: other (still on vent) CV: other (on levophed) Mental: within normal limits Temp: within normal limits Avdb-Hz-[id number]: within normal limits Nausea and Vomiting: within normal limits Pain: within normal limits
[2017-01-11] MEDS: PROPOFOL 1,000 MG/100 ML BOTTLE IV SCH ×2 (15:27→20:54)
[2017-01-12] MEDS: LACTATED RINGERS 1,000 ML IV SCH ×6 (00:36→19:09)
[2017-01-12] MEDS: INSULIN REGULAR 100 UNIT/ML SUBCUT SCH ×4 (00:44→18:10)
[2017-01-12] MEDS: CLINDAMYCIN INJ 900 MG in PREMIX 1 EACH IV SCH ×3 (00:45→15:58)
--- NOTE | 2017-01-12 02:03 | Cardiology Progress Note ---
Cardiology - PN: Subj Interval history: Cardiology note 61-year-old diabetic admitted with septic shock acute renal failure and rapid atrial fibrillation. She had second extensive debridement of the lower left abdominal wall and pelvic area for necrotizing fasciitis. Telemetry shows sinus rhythm in the 60-70 range. Blood pressure 108/67 off levo fed Averaging about 40 cc of urine output per hour Regular rhythm no murmur Decreased breath sounds with rhonchi in the left base Abdomen benign No leg edema Impression Necrotizing fasciitis Septic shock Acute renal failure New onset atrial fibrillation converted with IV Cardizem Type 2 diabetes with poor control Obesity Echo showed ejection fraction 60% with dilated left atrium and moderate TR PA pressure 55 Blood cultures negative to date. Plan Broad-spectrum antibiotics Tube feedings Exam (Progress Note) - Constitutional Vitals: Period Temp Pulse Resp BP Sys/Parker Pulse Ox Last 24 Hr 97.1 F-97.5 F 67-85 10-18 66-146/33-90 98-100 Result/EKG - Labs CBC & BMP: 01/11/17 04:47 01/11/17 04:47 Labs: Laboratory Results - last 24 hr 01/11/17 01/11/17 01/11/17 03:40 04:47 04:47 WBC 15.1 H RBC 3.43 L D Hgb 10.0 L D Hct 29.7 L MCV 86.6 L MCH 29 MCHC 33.7 RDW 14.4 Plt Count 237 D MPV 10.2 Neut % (Auto) 75.2 H Lymph % (Auto) 10.9 L [place] % (Auto) 8.7 Eos % (Auto) 0.5 Baso % (Auto) 0.5 Neut # (Auto) 11.4 H Lymph # (Auto) 1.7 [place] # (Auto) 1.3 H Eos # (Auto) 0.1 Baso # (Auto) 0.1 Total Counted 100 Immature Gran % 4.2 Nucleated RBC % 0.0 Immature Gran # 0.63 Segmented Neutrophils 85 Band Neutrophils 4 Lymphocytes 8 L Monocytes 3 Nucleated RBCs # 0.00 Platelet Estimate Normal Immature Plt Fraction 0.0 ESR Westergren ABG pH 7.268 L ABG pCO2 35.0 ABG pO2 213.8 H ABG HCO3 15.6 L ABG Total CO2 16.7 L ABG O2 Saturation 98.9 ABG Base Excess -10.4 L Sodium Potassium Chloride Carbon Dioxide Anion Gap BUN Creatinine GFR Calculation BUN/Creatinine Ratio Glucose POC Glucose Hemoglobin A1c Calculated Osmolality Calcium Magnesium Total Bilirubin AST ALT Alkaline Phosphatase Total Creatine Kinase 46 D CK-MB (CK-2) 1.4 Troponin I < 0.015 C-Reactive Protein Total Protein Albumin Globulin Albumin/Globulin Ratio 01/11/17 01/11/17 01/11/17 04:47 04:47 04:47 WBC RBC Hgb Hct MCV MCH MCHC RDW Plt Count MPV Neut % (Auto) Lymph % (Auto) [place] % (Auto) Eos % (Auto) Baso % (Auto) Neut # (Auto) Lymph # (Auto) [place] # (Auto) Eos # (Auto) Baso # (Auto) Total Counted Immature Gran % Nucleated RBC % Immature Gran # Segmented Neutrophils Band Neutrophils Lymphocytes Monocytes Nucleated RBCs # Platelet Estimate Immature Plt Fraction ESR Westergren 115 H ABG pH ABG pCO2 ABG pO2 ABG HCO3 ABG Total CO2 ABG O2 Saturation ABG Base Excess Sodium 137 Potassium 4.0 Chloride 107 Carbon Dioxide 16 L Anion Gap 18.0 H BUN 45 H Creatinine 2.40 H GFR Calculation 23 BUN/Creatinine Ratio 18.00 Glucose 178 H POC Glucose Hemoglobin A1c 11.7 H Calculated Osmolality 288.8 Calcium 7.4 L Magnesium 2.1 Total Bilirubin 0.80 AST 31 ALT 15 Alkaline Phosphatase 134 H Total Creatine Kinase CK-MB (CK-2) Troponin I C-Reactive Protein Total Protein 4.9 L Albumin 1.3 L Globulin 3.6 H Albumin/Globulin Ratio 0.3 L 01/11/17 01/11/17 01/11/17 04:47 06:14 11:16 WBC RBC Hgb Hct MCV MCH MCHC RDW Plt Count MPV Neut % (Auto) Lymph % (Auto) [place] % (Auto) Eos % (Auto) Baso % (Auto) Neut # (Auto) Lymph # (Auto) [place] # (Auto) Eos # (Auto) Baso # (Auto) Total Counted Immature Gran % Nucleated RBC % Immature Gran # Segmented Neutrophils Band Neutrophils Lymphocytes Monocytes Nucleated RBCs # Platelet Estimate Immature Plt Fraction ESR Westergren ABG pH ABG pCO2 ABG pO2 ABG HCO3 ABG Total CO2 ABG O2 Saturation ABG Base Excess Sodium Potassium Chloride Carbon Dioxide Anion Gap BUN Creatinine GFR Calculation BUN/Creatinine Ratio Glucose POC Glucose 198 H 192 H Hemoglobin A1c Calculated Osmolality Calcium Magnesium Total Bilirubin AST ALT Alkaline Phosphatase Total Creatine Kinase CK-MB (CK-2) Troponin I C-Reactive Protein 35.60 H Total Protein Albumin Globulin Albumin/Globulin Ratio 01/11/17 01/12/17 17:10 00:34 WBC RBC Hgb Hct MCV MCH MCHC RDW Plt Count MPV Neut % (Auto) Lymph % (Auto) [place] % (Auto) Eos % (Auto) Baso % (Auto) Neut # (Auto) Lymph # (Auto) [place] # (Auto) Eos # (Auto) Baso # (Auto) Total Counted Immature Gran % Nucleated RBC % Immature Gran # Segmented Neutrophils Band Neutrophils Lymphocytes Monocytes Nucleated RBCs # Platelet Estimate Immature Plt Fraction ESR Westergren ABG pH ABG pCO2 ABG pO2 ABG HCO3 ABG Total CO2 ABG O2 Saturation ABG Base Excess Sodium Potassium Chloride Carbon Dioxide Anion Gap BUN Creatinine GFR Calculation BUN/Creatinine Ratio Glucose POC Glucose 175 H 158 H Hemoglobin A1c Calculated Osmolality Calcium Magnesium Total Bilirubin AST ALT Alkaline Phosphatase Total Creatine Kinase CK-MB (CK-2) Troponin I C-Reactive Protein Total Protein Albumin Globulin Albumin/Globulin Ratio Quality Measures - VTE Contraindication to Pharmacological VTE Prophylaxis: High Risk of Bleeding
[2017-01-12] MEDS: DILTIAZEM INJ 100 MG in SODIUM CHLORIDE 0.9% 100 ML IV SCH (03:32)
[2017-01-12 04:48] LABS: ABG Base Excess -5.6 MMOL/L (-2.5-2.5); ABG HCO3 19.8 MMOL/L (20-26); ABG Oxygen Saturation 99.2 % (95-100); ABG PCO2 36.1 MM HG (35-48); ABG PH 7.342 (7.35-7.45); ABG TCO2 18.2 MMOL/L (23-27)
[2017-01-12 04:51] LABS: Basophils % 0.2 % (0.0-0.8); Eosinophils # 0.2 10*3/uL (0.0-0.87); Hematocrit 26.1 VOL% (35.7-47.0); Hemoglobin 8.7 GM/DL (12.0-16.0); Immature Granulocytes % 4.2 %; Immature Granulocytes Absolute 0.35 #; Lymphocytes # 1.2 10*3/uL (1.4-4.0); Lymphocytes % 14.4 % (21.3-54.2); Mean Corpuscular HGB Conc 33.3 GM/DL (32-36); Mean Corpuscular Hemoglobin 29 PG (27-34); Mean Corpuscular Volume 86.7 FL (87-102); Mean Platelet Volume 10.3 FL (9.6-12.0); Monocytes # 0.9 10*3/uL (0.11-0.8); Monocytes % 10.6 % (1.7-12.7); Neutrophils # 5.7 10*3/uL (1.4-7.4); Neutrophils % 68.6 % (38.7-73.9); Platelet Count 217 T/CUMM (130-400); Red Blood Count 3.01 MC/CUMM (3.8-5.5); Red Cell Distribution Width 14.7 % (9.3-17.3); White Blood Count 8.3 T/CUMM (4-12)
[2017-01-12 05:30] LABS: Calcium 7.3 MG/DL (8.5-10.1); Magnesium 2.2 MG/DL (1.8-2.4); Osmolality,Calculated 293.3 MOS/KG (273-304); Potassium 3.7 MMOL/L (3.5-5.1)
[2017-01-12] MEDS: MEROPENEM 500 MG in SODIUM CHLORIDE 0.9% 100 ML IV SCH ×2 (06:20→18:14)
[2017-01-12 06:32] LABS: Band Neutrophils 2 % (0-10); Burr Cells Slight; Hypochromasia 1+; Lymphocytes 9 % (20-55); Platelet Estimate Adequate; Segmented Neutrophils 82 % (50-85); Total Cells Counted 100
[2017-01-12] MEDS: NOREPINEPHRINE 8 MG in SODIUM CHLORIDE 0.9% 242 ML IV SCH (06:34)
--- NOTE | 2017-01-12 07:31 | Hospitalist Progress Note ---
Assessment and Plan - Time spent with patient Time spent with patient: Less than 30 minutes (1) Necrotizing fasciitis Status: Acute Assessment and plan: On vancomycin, clindamycin, meropenem. She has been followed by infectious disease and general surgery. She has undergone several surgical debridements. Current Visit: Yes (2) Acute renal failure Status: Acute Assessment and plan: She has acute kidney injury which was likely secondary to sepsis/hypotension. It is improved to a creatinine of 1.6 today. Current Visit: Yes (3) Atrial fibrillation with rapid ventricular response Status: Acute Assessment and plan: Patient had atrial fibrillation with rapid ventricular response which was converted with the use of intravenous Cardizem. Cardiology is following. Current Visit: Yes (4) DM type 2 (diabetes mellitus, type 2) Status: Acute Assessment and plan: Blood sugars are fairly well controlled. Will continue current regimen with Accu-Cheks and sliding scale insulin. Current Visit: Yes (5) Septic shock Status: Acute Assessment and plan: This is improved and she is now off pressor support. She continues to require mechanical ventilation. Continuing broad-spectrum IV antibiotics for necrotizing fasciitis which is etiology. Current Visit: Yes (6) On mechanically assisted ventilation Status: Acute Assessment and plan: Been followed by pulmonary and will defer management to that service. Current Visit: Yes Hospitalist: Subjective Interval history: Chart reviewed and patient examined. 61-year-old white female who was admitted with septic shock secondary to necrotizing she was undergone surgical debridement. She has been followed by general surgery and infectious disease. She also developed new onset atrial fibrillation with rapid ventricular response which was converted on IV Cardizem and is being followed by cardiology. She had respiratory failure as a consequence of her septic shock and is on ventilator followed by pulmonary. According to nurses her enteral feedings are only at 20 cc/h but she has residuals of 140 cc. She has now been weaned off vasopressors. Exam - Constitutional Vitals: Period Temp Pulse Resp BP Sys/Parker Pulse Ox Last 24 Hr 96.3 F-97.4 F 61-85 10-15 72-146/33-90 98-100 General appearance: no acute distress - Head Head exam: Present: normocephalic, atraumatic - Eye Eye exam: Present: EOMI Pupils: Present: DEBBIE - ENT ENT exam: Present: other (ET tube in place) - Respiratory Respiratory exam: Present: other (Coarse breath sounds). Absent: rales, rhonchi , wheezes - Cardiovascular Cardiovascular exam: Present: regular rate and rhythm. Absent: systolic murmur , tachycardia - GI/Abdominal GI/Abdominal exam: Present: normal bowel sounds, soft. Absent: tenderness - Extremities Exam Extremities exam: Absent: calf tenderness, edema - Neurological Exam Neurological exam: Present: other (Sedated on vent withdraws to tactile stimuli) - Skin Skin exam: Present: warm, dry Results - Labs CBC & BMP: 01/12/17 03:30 01/12/17 03:30 Lab Results: I have reviewed the past 24 hour labs - Diagnostic Findings Procedure: Chest x-ray: report reviewed by me Quality Measures - VTE Contraindication to Pharmacological VTE Prophylaxis: High Risk of Bleeding
[2017-01-12] MEDS ORDERED: VANCOMYCIN INJ 1,250 MG in SODIUM CHLORIDE 0.9% 250 ML IV ONE (08:00)
[2017-01-12] MEDS: INSULIN GLARGINE 100 UNIT/ML SUBCUT SCH (08:46)
[2017-01-12] MEDS: PANTOPRAZOLE 40 MG VIAL IV SCH (08:47)
--- NOTE | 2017-01-12 08:54 | XRay Report ---
XR chest 1V portable Indication: Ventilator, NG tube, central line placement. Comparison: Chest x-ray 01/11/2017 Technique: Portable AP chest was performed. Findings: Multiple tubes and medical support devices appear stable. No adverse interval change in the chest has occurred. If any change there is minimal improvement in visualization of the left central hemidiaphragm. Partially imaged intramedullary humeral nail on the right is again present. Impression: 1. No adverse interval change in chest. 01/12/2017 8:51 AM PROCEDURE INTERPRETED AT [facility] DEPARTMENT OF RADIOLOGY Final Report Signed by: Dr. Modesto Larsen
--- NOTE | 2017-01-12 10:32 | Pulmonology Progress Note ---
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 She was unaware that she had diabetes mellitus. She was admitted with acute necrotizing fasciitis in the perineum and lower abdomen. At the time of admission she was shocky. She required mechanical ventilation. He has renal failure which is improved. She is going to surgery several times and has come back. We are going to continue to leave her on the ventilator since she has to go back again. However have started the patient on the weaning protocol and physical therapy protocol Today's chest x-ray shows no infiltrates and no pulmonary Microbiology. No positive cultures ABGs. Mechanical ventilation. PH 7.34, PCO2 36, PO2 218, bicarb 19.8 Lab. White count 8300. H&H is dropped 8.7/26.1 and platelets are 217,000. Electrolytes are normal. Creatinine is dropped to 1.6 with a BUN of 41. Random vancomycin level which is being managed by pharmacology is 8.2 Labs been reviewed Medicines been reviewed Physical exam. Vital signs. See below Face is symmetrical with no edema of the tongue or lips Neck. Short thick. No meningismus. Chest. Slight large airway congestion Heart. No gallop Abdomen. Rare bowel sound. Extremities. Nothing to suggest deep venous thrombophlebitis Lymphatics. No submandibular cervical or supraclavicular adenopathy. Neurologic. Cranial nerves appear to be intact. Patient has some movement in all 4 extremities. The remainder the physical exam is noncontributory. It is also negative. Plan. 1. Mechanical ventilator weaning protocol 2. Physical therapy protocol while on mechanical ventilation 3. Not ready for extubation will need additional surgeries in the near future Exam (Progress Note) - Constitutional Vitals: Period Temp Pulse Resp BP Sys/Parker Pulse Ox Last 24 Hr 96.3 F-97.5 F 61-85 10-16 72-144/33-70 98-100 Results - Labs CBC & BMP: 01/12/17 03:30 01/12/17 03:30
--- NOTE | 2017-01-12 10:48 | Event Note ---
She looks better. Her acidosis is improved. Creatinine is come down. Her vital signs are stable. We will do a dressing change at the bedside today. I feel that there is probably not much more left to debride. We will reassess again tomorrow whether any more debridement is needed. I hope to get this to a point we can place a wound VAC.
[2017-01-12] MEDS: METOCLOPRAMIDE 10 MG/2 ML VIAL IV SCH ×2 (11:47→18:11)
[2017-01-12] MEDS: PROPOFOL 1,000 MG/100 ML BOTTLE IV SCH ×2 (15:16→15:34)
[2017-01-12] MEDS: SODIUM HYPOCHLORITE 0.25% IRRIG 473 ML BOTTLE TOP SCH (15:32)
[2017-01-12] MEDS ORDERED: HEPARIN/NACL 0.9% 2 UNITS/ML 500 ML IV ONE (16:12)
[2017-01-13] MEDS: PROPOFOL 1,000 MG/100 ML BOTTLE IV SCH ×5 (00:17→20:05)
[2017-01-13] MEDS: CLINDAMYCIN INJ 900 MG in PREMIX 1 EACH IV SCH ×3 (00:44→16:48)
[2017-01-13] MEDS: INSULIN REGULAR 100 UNIT/ML SUBCUT SCH ×4 (00:56→18:08)
[2017-01-13] MEDS: METOCLOPRAMIDE 10 MG/2 ML VIAL IV SCH ×4 (00:56→18:21)
[2017-01-13] MEDS: LACTATED RINGERS 1,000 ML IV SCH ×4 (03:12→22:01)
[2017-01-13] MEDS: DILTIAZEM INJ 100 MG in SODIUM CHLORIDE 0.9% 100 ML IV SCH (05:58)
[2017-01-13] MEDS: NOREPINEPHRINE 8 MG in SODIUM CHLORIDE 0.9% 242 ML IV SCH (05:59)
[2017-01-13 06:00] LABS: ABG Base Excess -4.2 MMOL/L (-2.5-2.5); ABG Oxygen Saturation 99.3 % (95-100); ABG PCO2 36.2 MM HG (35-48); ABG PH 7.363 (7.35-7.45); ABG TCO2 18.3 MMOL/L (23-27)
[2017-01-13 06:02] LABS: Basophils % 0.4 % (0.0-0.8); Eosinophils # 0.2 10*3/uL (0.0-0.87); Eosinophils % 4.5 % (0.00-10.9); Hematocrit 25.8 VOL% (35.7-47.0); Hemoglobin 8.7 GM/DL (12.0-16.0); Immature Granulocytes % 4.1 %; Immature Granulocytes Absolute 0.22 #; Lymphocytes # 1.5 10*3/uL (1.4-4.0); Lymphocytes % 28.5 % (21.3-54.2); Mean Corpuscular HGB Conc 33.7 GM/DL (32-36); Mean Corpuscular Hemoglobin 30 PG (27-34); Mean Corpuscular Volume 87.5 FL (87-102); Monocytes # 0.8 10*3/uL (0.11-0.8); Monocytes % 15.5 % (1.7-12.7); Neutrophils # 2.5 10*3/uL (1.4-7.4); Platelet Count 221 T/CUMM (130-400); Red Blood Count 2.95 MC/CUMM (3.8-5.5); Red Cell Distribution Width 14.9 % (9.3-17.3); White Blood Count 5.4 T/CUMM (4-12)
[2017-01-13 06:31] LABS: Calcium 7.5 MG/DL (8.5-10.1); Osmolality,Calculated 292.1 MOS/KG (273-304); Potassium 3.9 MMOL/L (3.5-5.1)
[2017-01-13] MEDS: MEROPENEM 500 MG in SODIUM CHLORIDE 0.9% 100 ML IV SCH (06:44)
[2017-01-13 07:24] LABS: Eosinophils 5 % (0-10); Hypochromasia 1+; Lymphocytes 24 % (20-55); Platelet Estimate Adequate; Segmented Neutrophils 55 % (50-85); Total Cells Counted 100
--- NOTE | 2017-01-13 08:08 | Cardiology Progress Note ---
Cardiology - PN: Subj Interval history: Cardiology note 61-year-old diabetic admitted with septic shock acute renal failure and rapid atrial fibrillation. Has had 2 extensive debridements of the lower left abdominal wall and pelvic area for necrotizing fasciitis. Telemetry shows sinus rhythm in the 60-70 range. Blood pressure 104/62 off levo fed. Making good urine O2 sat 100 on 50% FiO2 Regular rhythm no murmur Decreased breath sounds with basilar rhonchi Abdomen benign No leg edema Lab data today white count 5.4 hemoglobin 8.7 echo 25.8 Sodium 142 potassium 3.9 chloride 110 CO2 23 BUN 35 creatinine 1.10 Magnesium 2.0 glucose 145 Abscess culture gram-positive cocci. Blood cultures are negative at 3 days Urine culture negative Impression Necrotizing fasciitis Septic shock and acute renal failure New onset A. fib converted with IV Cardizem Type 2 diabetes with poor control Obesity echo showed ejection fraction 60% with dilated left atrium and moderate TR PA pressure 55 Plan Broad-spectrum antibiotics Tube feedings Wean vent as tolerated Exam (Progress Note) - Constitutional Vitals: Period Temp Pulse Resp BP Sys/Parker Pulse Ox Last 24 Hr 97.0 F-98.8 F 58-83 10-18 90-125/44-77 96-100 Result/EKG - Labs CBC & BMP: 01/13/17 05:25 01/13/17 05:25 Labs: Laboratory Results - last 24 hr 01/12/17 01/12/17 01/13/17 11:07 17:58 00:11 WBC RBC Hgb Hct MCV MCH MCHC RDW Plt Count MPV Neut % (Auto) Lymph % (Auto) [place] % (Auto) Eos % (Auto) Baso % (Auto) Neut # (Auto) Lymph # (Auto) [place] # (Auto) Eos # (Auto) Baso # (Auto) Total Counted Immature Gran % Nucleated RBC % Immature Gran # Segmented Neutrophils Lymphocytes Monocytes Eosinophils Basophils Nucleated RBCs # Platelet Estimate Immature Plt Fraction Hypochromasia Morphology Comment ABG pH ABG pCO2 ABG pO2 ABG HCO3 ABG Total CO2 ABG O2 Saturation ABG Base Excess Sodium Potassium Chloride Carbon Dioxide Anion Gap BUN Creatinine GFR Calculation BUN/Creatinine Ratio Glucose POC Glucose 155 H 151 H 68 L Calculated Osmolality Calcium Magnesium 01/13/17 01/13/17 01/13/17 00:12 05:25 05:25 WBC 5.4 D RBC 2.95 L Hgb 8.7 L Hct 25.8 L MCV 87.5 MCH 30 MCHC 33.7 RDW 14.9 Plt Count 221 MPV 10.0 Neut % (Auto) 47.0 Lymph % (Auto) 28.5 [place] % (Auto) 15.5 H Eos % (Auto) 4.5 Baso % (Auto) 0.4 Neut # (Auto) 2.5 Lymph # (Auto) 1.5 [place] # (Auto) 0.8 Eos # (Auto) 0.2 Baso # (Auto) 0.0 Total Counted 100 Immature Gran % 4.1 Nucleated RBC % 0.0 Immature Gran # 0.22 Segmented Neutrophils 55 Lymphocytes 24 Monocytes 14 Eosinophils 5 Basophils 2.0 H Nucleated RBCs # 0.00 Platelet Estimate Adequate Immature Plt Fraction 0.0 Hypochromasia 1+ Morphology Comment ABG pH ABG pCO2 ABG pO2 ABG HCO3 ABG Total CO2 ABG O2 Saturation ABG Base Excess Sodium 142 Potassium 3.9 Chloride 110 H Carbon Dioxide 23 Anion Gap 12.9 BUN 35 H Creatinine 1.10 H GFR Calculation 68 BUN/Creatinine Ratio 31.00 H Glucose 131 H POC Glucose 126 H Calculated Osmolality 292.1 Calcium 7.5 L Magnesium 2.0 01/13/17 01/13/17 05:25 05:52 WBC RBC Hgb Hct MCV MCH MCHC RDW Plt Count MPV Neut % (Auto) Lymph % (Auto) [place] % (Auto) Eos % (Auto) Baso % (Auto) Neut # (Auto) Lymph # (Auto) [place] # (Auto) Eos # (Auto) Baso # (Auto) Total Counted Immature Gran % Nucleated RBC % Immature Gran # Segmented Neutrophils Lymphocytes Monocytes Eosinophils Basophils Nucleated RBCs # Platelet Estimate Immature Plt Fraction Hypochromasia Morphology Comment ABG pH 7.363 ABG pCO2 36.2 ABG pO2 209.0 H ABG HCO3 21.0 ABG Total CO2 18.3 L ABG O2 Saturation 99.3 ABG Base Excess -4.2 L Sodium Potassium Chloride Carbon Dioxide Anion Gap BUN Creatinine GFR Calculation BUN/Creatinine Ratio Glucose POC Glucose 145 H Calculated Osmolality Calcium Magnesium Quality Measures - VTE Contraindication to Pharmacological VTE Prophylaxis: High Risk of Bleeding
--- NOTE | 2017-01-13 08:09 | Hospitalist Progress Note ---
Assessment and Plan - Time spent with patient Time spent with patient: Less than 30 minutes (1) Necrotizing fasciitis Status: Acute Assessment and plan: 01/12/17: On vancomycin, clindamycin, meropenem. She has been followed by infectious disease and general surgery. She has undergone several surgical debridements. 01/13/17: Continuing empiric IV antibiotics. She is followed by infectious disease and general surgery. She is status post several surgical debridements. Have noted Dr. Pollard III assessment from yesterday. Current Visit: Yes (2) Acute renal failure Status: Acute Assessment and plan: 01/12/17 she has acute kidney injury which was likely secondary to sepsis/ hypotension. It is improved to a creatinine of 1.6 today. 01/13/17: Continued improvement with serum creatinine of 1.1. Current Visit: Yes (3) Atrial fibrillation with rapid ventricular response Status: Acute Assessment and plan: Patient had atrial fibrillation with rapid ventricular response which was converted with the use of intravenous Cardizem. Cardiology is following. Current Visit: Yes (4) DM type 2 (diabetes mellitus, type 2) Status: Acute Assessment and plan: Blood sugars are fairly well controlled. Will continue current regimen with Accu-Cheks and sliding scale insulin. Current Visit: Yes (5) Septic shock Status: Acute Assessment and plan: This is improved and she is now off pressor support. She continues to require mechanical ventilation. Continuing broad-spectrum IV antibiotics for necrotizing fasciitis which is etiology. Current Visit: Yes (6) On mechanically assisted ventilation Status: Acute Assessment and plan: Been followed by pulmonary and will defer management to that service. Current Visit: Yes Hospitalist: Subjective Interval history: Ms. mathis is a 61-year-old white female who was admitted with septic shock secondary necrotizing fasciitis and has undergone several surgical debridements. She is being followed by general surgery as well as infectious disease. She had atrial fibrillation with rapid ventricular response converting to sinus rhythm on IV Cardizem and being followed by cardiology. She also had acute respiratory failure as a consequence of her sepsis and currently maintained on the ventilator and followed by pulmonary. She has been weaned off pressors. She was having high residuals of her enteral feedings and nursing reports there is been a little improvement with the addition of IV Reglan. Exam - Constitutional Vitals: Period Temp Pulse Resp BP Sys/Parker Pulse Ox Last 24 Hr 97.0 F-98.8 F 58-83 10-18 90-125/44-77 96-100 General appearance: no acute distress - Head Head exam: Present: normal inspection - Eye Eye exam: Present: EOMI Pupils: Present: DEBBIE - ENT ENT exam: Present: other (ET tube in place) - Neck Neck exam: Present: normal inspection. Absent: lymphadenopathy, thyromegaly - Respiratory Respiratory exam: Present: clear to auscultation bilaterally. Absent: rales, rhonchi, wheezes - Cardiovascular Cardiovascular exam: Present: regular rate and rhythm. Absent: systolic murmur , tachycardia - GI/Abdominal GI/Abdominal exam: Present: normal bowel sounds, soft. Absent: mass, rebound - Extremities Exam Extremities exam: Present: other (Bilateral SCDs to lower extremities). Absent : calf tenderness - Neurological Exam Neurological exam: Present: other (Sedated on the vent but withdraws to tactile stimuli) - Skin Skin exam: Present: normal color Results - Labs CBC & BMP: 01/13/17 05:25 01/13/17 05:25 Lab Results: I have reviewed the past 24 hour labs Quality Measures - VTE Contraindication to Pharmacological VTE Prophylaxis: High Risk of Bleeding
[2017-01-13] MEDS: MEROPENEM 1,000 MG in SODIUM CHLORIDE 0.9% 100 ML IV SCH ×2 (09:09→18:18)
[2017-01-13] MEDS: INSULIN GLARGINE 100 UNIT/ML SUBCUT SCH (09:12)
[2017-01-13] MEDS: PANTOPRAZOLE 40 MG VIAL IV SCH (09:13)
--- NOTE | 2017-01-13 09:27 | Pulmonology Progress Note ---
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 She was unaware that she had diabetes mellitus. She was admitted with acute necrotizing fasciitis in the perineum and lower abdomen. At the time of admission she was shocky. She required mechanical ventilation. He has renal failure which is improved. She is going to surgery several times and has come back. We are going to continue to leave her on the ventilator since she has to go back again. However have started the patient on the weaning protocol and physical therapy protocol Today's chest x-ray shows no infiltrates and no pulmonary Microbiology. No positive cultures ABGs. Mechanical ventilation. PH 7.34, PCO2 36, PO2 218, bicarb 19.8 Lab. White count 8300. H&H is dropped 8.7/26.1 and platelets are 217,000. Electrolytes are normal. Creatinine is dropped to 1.6 with a BUN of 41. Random vancomycin level which is being managed by pharmacology is 8.2 01/13/2017. Patient was able to do 4 hours of CPAP on 01/12/2017. She is stable this morning. No chest x-ray was done today. Patient is growing a gram- positive cocci from the suprapubic abscess. ID and sensitivities are pending. ABGs on mechanical ventilation showed pH 7.36, PCO2 36, PO2 of 209, bicarbonate 21. Electrolytes are normal. Creatinine has dropped to 1.1 with a BUN of 35. H&H is 8.7 on 25.8 white count is 5400 and platelets are 221,000. Labs been reviewed Medicines been reviewed Physical exam. Vital signs. See below Face is symmetrical with no edema of the tongue or lips Neck. Short thick. No meningismus. Chest. Slight large airway congestion Heart. No gallop Abdomen. Rare bowel sound. Extremities. Nothing to suggest deep venous thrombophlebitis Lymphatics. No submandibular cervical or supraclavicular adenopathy. Neurologic. Cranial nerves appear to be intact. Patient has some movement in all 4 extremities. The remainder the physical exam is noncontributory. It is also negative. Plan. 01/12/2007 1. Mechanical ventilator weaning protocol 2. Physical therapy protocol while on mechanical ventilation 3. Not ready for extubation will need additional surgeries in the near future 01/13/2017. 1. Weaning protocol 2. Physical therapy protocol 3. Patient is not ready for extubation. At present and appears she will need additional surgeries in the near future. 4. Follow-up ABGs and chest x-ray Exam (Progress Note) - Constitutional Vitals: Period Temp Pulse Resp BP Sys/Parker Pulse Ox Last 24 Hr 97.0 F-98.8 F 58-83 10-18 90-125/44-77 96-100 Results - Labs CBC & BMP: 01/13/17 05:25 01/13/17 05:25
[2017-01-13] MEDS: SODIUM HYPOCHLORITE 0.25% IRRIG 473 ML BOTTLE TOP SCH (10:48)
[2017-01-13] MEDS: VANCOMYCIN INJ 1,500 MG in SODIUM CHLORIDE 0.9% 500 ML IV SCH ×2 (10:56→21:30)
--- NOTE | 2017-01-13 11:23 | Event Note ---
She is hemodynamically stable. Took down her dressing this morning and the tissue all appears viable and I do not see signs of further active infection infection or necrosis in her wound this morning.
[2017-01-14] MEDS: CLINDAMYCIN INJ 900 MG in PREMIX 1 EACH IV SCH ×3 (00:33→17:57)
[2017-01-14] MEDS: METOCLOPRAMIDE 10 MG/2 ML VIAL IV SCH ×4 (00:33→18:43)
[2017-01-14] MEDS: MEROPENEM 1,000 MG in SODIUM CHLORIDE 0.9% 100 ML IV SCH ×2 (02:00→08:32)
[2017-01-14] MEDS: INSULIN REGULAR 100 UNIT/ML SUBCUT SCH ×4 (03:03→17:57)
[2017-01-14] MEDS: DILTIAZEM INJ 100 MG in SODIUM CHLORIDE 0.9% 100 ML IV SCH (03:17)
[2017-01-14 03:46] LABS: Basophils % 0.3 % (0.0-0.8); Eosinophils # 0.3 10*3/uL (0.0-0.87); Eosinophils % 3.7 % (0.00-10.9); Hematocrit 26.9 VOL% (35.7-47.0); Hemoglobin 8.9 GM/DL (12.0-16.0); Immature Granulocytes % 5.1 %; Immature Granulocytes Absolute 0.36 #; Lymphocytes # 1.5 10*3/uL (1.4-4.0); Lymphocytes % 20.9 % (21.3-54.2); Mean Corpuscular HGB Conc 33.1 GM/DL (32-36); Mean Corpuscular Hemoglobin 29 PG (27-34); Mean Corpuscular Volume 87.1 FL (87-102); Mean Platelet Volume 10.1 FL (9.6-12.0); Monocytes # 0.8 10*3/uL (0.11-0.8); Monocytes % 11.5 % (1.7-12.7); Neutrophils # 4.1 10*3/uL (1.4-7.4); Neutrophils % 58.5 % (38.7-73.9); Platelet Count 207 T/CUMM (130-400); Red Blood Count 3.09 MC/CUMM (3.8-5.5); Red Cell Distribution Width 14.7 % (9.3-17.3); White Blood Count 7.1 T/CUMM (4-12)
[2017-01-14 03:54] LABS: ABG Base Excess -5.7 MMOL/L (-2.5-2.5); ABG HCO3 19.7 MMOL/L (20-26); ABG PCO2 33.1 MM HG (35-48); ABG PH 7.365 (7.35-7.45); ABG TCO2 17.6 MMOL/L (23-27)
[2017-01-14 04:30] LABS: Calcium 7.5 MG/DL (8.5-10.1); Magnesium 1.8 MG/DL (1.8-2.4); Osmolality,Calculated 287.1 MOS/KG (273-304); Potassium 4.7 MMOL/L (3.5-5.1)
[2017-01-14 04:59] LABS: Magnesium 1.7 MG/DL (1.8-2.4); Phosphorous 5.2 MG/DL (2.5-4.9); Prealbumin 14.4 MG/DL (20-40)
[2017-01-14 05:13] LABS: Band Neutrophils 1 % (0-10); Eosinophils 10 % (0-10); Lymphocytes 22 % (20-55); Segmented Neutrophils 57 % (50-85)
[2017-01-14 05:14] LABS: Hypochromasia Slight; Platelet Estimate Normal
[2017-01-14 05:15] LABS: Total Cells Counted 100
[2017-01-14] MEDS: LACTATED RINGERS 1,000 ML IV SCH ×2 (06:45→14:47)
[2017-01-14] MEDS: NOREPINEPHRINE 8 MG in SODIUM CHLORIDE 0.9% 242 ML IV SCH (07:21)
--- NOTE | 2017-01-14 08:00 | Pulmonology Progress Note ---
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 She has had extensive debridement and has a large open wound. She was septic but is doing better now. She is a poorly controlled diabetic. She went back to surgery Saturday and had further debridement. She had a fairly good weekend and was stable on the ventilator. She is not on any pressors now. Her renal function is back to normal. She has excellent oxygenation on the ventilator. She did grow out MRSA along with anaerobes. She appears to be better on the ventilator. She is tolerating CPAP now. Exam (Progress Note) - Constitutional Vitals: Period Temp Pulse Resp BP Sys/Parker Pulse Ox Last 24 Hr 96.8 F-98.3 F 53-108 10-22 93-148/47-95 98-100 Exam: General appearance: no acute distress (Patient looks reasonably comfortable on the ventilator. She is comfortable on CPAP. She is sedated at present.), over weight - Head Head exam: Present: normal inspection - Eye Eye exam: Present: EOMI. Absent: scleral icterus Pupils: Present: DEBBIE - ENT ENT exam: Present: other (ET tube is in good position) - Neck Neck exam: Present: normal inspection - Respiratory Respiratory exam: Present: clear to auscultation bilaterally, she has good breath sounds bilaterally. - Cardiovascular Cardiovascular exam: Present: irregular rhythm. Her heart rate is much better. Absent: systolic murmur - GI/Abdominal GI/Abdominal exam: Present: hypoactive bowel sounds, soft. Absent: organomegaly , tenderness. Her lower abdomen and perineum is wrapped - Extremities Exam Extremities exam: Absent: calf tenderness, edema - Neurological Exam Neurological exam: Present: She is sedated on the ventilator. - Psychiatric Psychiatric exam: Absent: anxious - Skin Skin exam: Present: warm, dry Results - Labs CBC & BMP: 01/14/17 03:30 01/14/17 03:30 Labs: Her PO2 is 192 with a PCO2 of 33 and a pH of 7.36 - Diagnostic Findings Procedure: Chest x-ray: image reviewed by me, report reviewed by me (Chest x- ray is reasonably clear.) Assessment and Plan (1) Necrotizing fasciitis Status: Acute Assessment and plan: Patient has extensive necrotizing fasciitis and has had significant surgical debridement. She has done fairly well on the ventilator and her wounds are doing better. She can probably be extubated soon. Will check with surgery. Current Visit: Yes (2) Severe sepsis Status: Acute Assessment and plan: She is getting broad-spectrum antibiotics and fluids. She is hemodynamically more stable and is starting to make better urine output. She is off pressors now and much more stable. Current Visit: Yes (3) Acute renal failure Status: Acute Assessment and plan: The patient's creatinine is much improved and now down to 0.8. Current Visit: Yes (4) Atrial fibrillation with rapid ventricular response Status: Acute Assessment and plan: The patient is back in a sinus rhythm now and her heart rate is better. Current Visit: Yes (5) DM type 2 (diabetes mellitus, type 2) Status: Acute Assessment and plan: The patient did not know she was a diabetic to last week. Her glucose is 125 now. Current Visit: Yes (6) Deaf-mutism Status: Chronic Assessment and plan: Communication may be difficult. Current Visit: Yes (7) On mechanically assisted ventilation Status: Acute Assessment and plan: She is stable on the ventilator and is quite stable. Her wounds apparently are doing better and she may not need further surgery. We will probably extubate if she is not requiring more surgery. Current Visit: Yes
--- NOTE | 2017-01-14 08:25 | XRay Report ---
XR chest 1V portable Indication: Shortness of breath Comparison: Chest x-ray dated January 12, 2017 Technique: Single frontal view of the chest. Findings: Lines and tubes are stable in positioning. Continued cardiomegaly. Left atelectasis/consolidation and small left pleural fluid. Visualized osseous and surrounding soft tissue structures appear grossly unchanged. IMPRESSION: As above. PROCEDURE INTERPRETED AT [facility] DEPARTMENT OF RADIOLOGY Final Report Signed by: Dr Adarsh Maldonado
[2017-01-14] MEDS: PANTOPRAZOLE 40 MG VIAL IV SCH (08:27)
--- NOTE | 2017-01-14 08:52 | Event Note ---
Overall she is improved. White blood cell count was normal. Her wound looked good yesterday. We will take down her dressing fully today and see about placing a wound VAC.
--- NOTE | 2017-01-14 08:57 | XRay Report ---
XR KUB Indication: Ileus, high tube feed residuals Comparison: None Technique: Frontal views of the abdomen Findings: Nonspecific bowel gas pattern. Enteric tube tip projects over the expected location of the proximal stomach. Serpentine opacity projects over the pelvis of unknown etiology. Clinically correlate. Degenerative change of the lower lumbar spine noted. IMPRESSION: As above. PROCEDURE INTERPRETED AT [facility] DEPARTMENT OF RADIOLOGY Final Report Signed by: Dr Adarsh Maldonado
--- NOTE | 2017-01-14 09:26 | Cardiology Progress Note ---
<Paula Marcus Amy - Last Filed: 01/14/17 09:07> Assessment and Plan - Time spent with patient Time spent with patient: Less than 30 minutes (1) Paroxysmal atrial fibrillation Status: Acute Assessment and plan: See plan of care listed below. Current Visit: Yes (2) Necrotizing fasciitis Status: Acute Assessment and plan: See plan of care listed below. Current Visit: Yes (3) DM type 2 (diabetes mellitus, type 2) Status: Chronic Assessment and plan: See plan of care listed below. Current Visit: Yes (4) Severe sepsis Status: Acute Assessment and plan: See plan of care listed below. Current Visit: Yes (5) Acute renal failure Status: Acute Assessment and plan: See plan of care listed below. Current Visit: Yes (6) Deaf-mutism Status: Chronic Assessment and plan: See plan of care listed below. Current Visit: Yes Cardiology - PN: Subj Interval history: Drag Seiner: new to Dr. Webster SUMMARY: Ms. Mckeon is a 61 year old female with a history of type 2 diabetes mellitus and obesity who was admitted with septic shock, acute renal failure, and new onset rapid atrial fibrillation. We were consulted to see her and aid in management of her A. fib. She has had 2 extensive debridements of the left lower abdominal wall and pelvic area for necrotizing fasciitis. She has been on IV Cardizem and subsequently converted to normal sinus rhythm. She is no longer requiring vasopressors. She is making good urine. She had an echocardiogram which showed ejection fraction 60% with dilated left atrium and moderate TR with PA pressure 55. She is being treated with broad-spectrum antibiotics. She remains on mechanical ventilation. JANUARY 14, 2017 UPDATE: NG tube to LIWS as she is not tolerating tube feedings. She remains in sinus rhythm with controlled rate. She is not currently on any yogesh blocking agents. Will start IV beta emili. ASSESSMENT/PLAN: 1. PAROXYSMAL ATRIAL FIBRILLATION - Converted with IV Cardizem. She is currently not tolerating anything via NGT. We will continue to use IV Cardizem if she goes back into AFRVR. Will start her on IV Lopressor Q6H. 2. NECROTIZING FASCIITIS - General surgery is following. She has had 2 surgical debridements and continues on broad spectrum antibiotics. 3. TYPE 2 DIABETES MELLITUS - She is on Accu-Cheks and sliding scale insulin. 4. SEPSIS - No longer requiring vasopressors. She is getting broad-spectrum antibiotics and IV fluids. 5. ACUTE RENAL FAILURE - Much improved with creatinine 0.8. Will monitor BMP. 6. HISTORY OF HEARING LOSS - Patient is deaf. Once patient is more alert, communication may be difficult. Exam (Progress Note) - Constitutional Vitals: Period Temp Pulse Resp BP Sys/Parker Pulse Ox Last 24 Hr 96.8 F-98.3 F 53-108 10-22 93-148/47-89 97-100 Exam: General appearance: Orally intubated and sedated on ventilator. Overweight, no acute distress. - Head Head exam: Present: normal inspection, normocephalic, atraumatic. Absent: hematoma, laceration - Eye Eye exam: Present: EOMI. Absent: conjunctival injection, nystagmus, periorbital swelling, scleral icterus, laceration to eyelids Pupils: Present: PERRL. Absent: constricted, dilated, fixed, irregular, unequal - ENT ENT exam: Present: Orally intubated, normal external ear exam, NGT in place to LIWS. - Neck Neck exam: Present: normal inspection. Absent: lymphadenopathy, meningismus, tenderness, thyromegaly - Respiratory Respiratory exam: Present: Mechanically ventilated breath sounds with scattered rhonchi. Absent: accessory muscle use - Cardiovascular Cardiovascular exam: Present: regular rate and rhythm. Absent: gallop, rubs, murmur - GI/Abdominal GI/Abdominal exam: Present: normal bowel sounds, soft. Absent: distended, firm , guarding, hernia, mass, tenderness, rebound. - Extremities Exam Extremities exam: Present: normal inspection, normal capillary refill. Upper extremity pulses 2+. Lower extremity pulses 2+. Absent: calf tenderness, edema - Back Exam Back exam: Present: Unable to examine due to habitus. Sedated on mechanical ventilator. - Neurological Exam Neurological exam: Present: Limited due to habitus (on ventilator). Patient is also deaf which limits communication. She does move all extremities spontaneously. No resting or essential tremor. - Psychiatric Psychiatric exam: Present: Unable to adequately assess due to patient being sedated and on mechanical ventilation. - Skin Skin exam: Present: normal color, warm, dry, intact. Absent: cyanosis, diaphoretic, rash, urticaria Result/EKG - Labs CBC & BMP: 01/14/17 03:30 01/14/17 03:30 Lab Results: I have reviewed the past 24 hour labs Labs: Laboratory Results - last 24 hr 01/13/17 01/13/17 01/14/17 12:05 17:31 01:30 WBC RBC Hgb Hct MCV MCH MCHC RDW Plt Count MPV Neut % (Auto) Lymph % (Auto) Hodgeman % (Auto) Eos % (Auto) Baso % (Auto) Neut # (Auto) Lymph # (Auto) Hodgeman # (Auto) Eos # (Auto) Baso # (Auto) Total Counted Immature Gran % Nucleated RBC % Immature Gran # Segmented Neutrophils Band Neutrophils Lymphocytes Monocytes Eosinophils Nucleated RBCs # Platelet Estimate Immature Plt Fraction Hypochromasia ABG pH ABG pCO2 ABG pO2 ABG HCO3 ABG Total CO2 ABG O2 Saturation ABG Base Excess Sodium Potassium Chloride Carbon Dioxide Anion Gap BUN Creatinine GFR Calculation BUN/Creatinine Ratio Glucose POC Glucose 155 H 130 H 134 H Calculated Osmolality Calcium Phosphorus Magnesium Prealbumin 01/14/17 01/14/17 01/14/17 03:18 03:30 03:30 WBC 7.1 D RBC 3.09 L Hgb 8.9 L Hct 26.9 L MCV 87.1 MCH 29 MCHC 33.1 RDW 14.7 Plt Count 207 MPV 10.1 Neut % (Auto) 58.5 Lymph % (Auto) 20.9 L Hodgeman % (Auto) 11.5 Eos % (Auto) 3.7 Baso % (Auto) 0.3 Neut # (Auto) 4.1 Lymph # (Auto) 1.5 Hodgeman # (Auto) 0.8 Eos # (Auto) 0.3 Baso # (Auto) 0.0 Total Counted 100 Immature Gran % 5.1 Nucleated RBC % 0.0 Immature Gran # 0.36 Segmented Neutrophils 57 Band Neutrophils 1 Lymphocytes 22 Monocytes 10 Eosinophils 10 Nucleated RBCs # 0.00 Platelet Estimate Normal Immature Plt Fraction 0.0 Hypochromasia Slight ABG pH 7.365 ABG pCO2 33.1 L ABG pO2 192.0 H ABG HCO3 19.7 L ABG Total CO2 17.6 L ABG O2 Saturation 99.0 ABG Base Excess -5.7 L Sodium Potassium Chloride Carbon Dioxide Anion Gap BUN Creatinine GFR Calculation BUN/Creatinine Ratio Glucose POC Glucose Calculated Osmolality Calcium Phosphorus 5.2 H Magnesium 1.7 L Prealbumin 14.4 L 01/14/17 01/14/17 03:30 06:21 WBC RBC Hgb Hct MCV MCH MCHC RDW Plt Count MPV Neut % (Auto) Lymph % (Auto) Hodgeman % (Auto) Eos % (Auto) Baso % (Auto) Neut # (Auto) Lymph # (Auto) Hodgeman # (Auto) Eos # (Auto) Baso # (Auto) Total Counted Immature Gran % Nucleated RBC % Immature Gran # Segmented Neutrophils Band Neutrophils Lymphocytes Monocytes Eosinophils Nucleated RBCs # Platelet Estimate Immature Plt Fraction Hypochromasia ABG pH ABG pCO2 ABG pO2 ABG HCO3 ABG Total CO2 ABG O2 Saturation ABG Base Excess Sodium 142 Potassium 4.7 Chloride 113 H Carbon Dioxide 21 Anion Gap 12.7 BUN 23 H D Creatinine 0.80 GFR Calculation 99 BUN/Creatinine Ratio 28.00 H Glucose 124 H POC Glucose 125 H Calculated Osmolality 287.1 Calcium 7.5 L Phosphorus Magnesium 1.8 Prealbumin - EKG EKG results: interpreted by me, sinus rhythm Quality Measures - VTE Contraindication to Pharmacological VTE Prophylaxis: High Risk of Bleeding <Colleen San - Last Filed: 01/14/17 10:09> Cardiology - PN: Subj Interval history: I have personally interviewed and evaluated the patient, reviewed the chart and discussed medical decision-making with practitioner Amrit. I have read this note and agree with her documentation here in. Additionally, her abdominal exam reveals a surgical dressing on her abdominal wound without surrounding erythema. I discussed anticoagulation strategies with Dr. Latrice Murillo, we will at least initiate some prophylactic dosing and see how she tolerates that in terms of bleeding from her wound. If she goes in and out of the atrial fibrillation again we will consider escalating this. Exam (Progress Note) - Constitutional Vitals: Period Temp Pulse Resp BP Sys/Parker Pulse Ox Last 24 Hr 96.8 F-98.3 F 53-108 10-22 90-148/49-89 97-100 Result/EKG - Labs CBC & BMP: 01/14/17 03:30 01/14/17 03:30 Labs: Laboratory Results - last 24 hr 01/13/17 01/13/17 01/14/17 12:05 17:31 01:30 WBC RBC Hgb Hct MCV MCH MCHC RDW Plt Count MPV Neut % (Auto) Lymph % (Auto) Hodgeman % (Auto) Eos % (Auto) Baso % (Auto) Neut # (Auto) Lymph # (Auto) Hodgeman # (Auto) Eos # (Auto) Baso # (Auto) Total Counted Immature Gran % Nucleated RBC % Immature Gran # Segmented Neutrophils Band Neutrophils Lymphocytes Monocytes Eosinophils Nucleated RBCs # Platelet Estimate Immature Plt Fraction Hypochromasia ABG pH ABG pCO2 ABG pO2 ABG HCO3 ABG Total CO2 ABG O2 Saturation ABG Base Excess Sodium Potassium Chloride Carbon Dioxide Anion Gap BUN Creatinine GFR Calculation BUN/Creatinine Ratio Glucose POC Glucose 155 H 130 H 134 H Calculated Osmolality Calcium Phosphorus Magnesium Prealbumin 01/14/17 01/14/17 01/14/17 03:18 03:30 03:30 WBC 7.1 D RBC 3.09 L Hgb 8.9 L Hct 26.9 L MCV 87.1 MCH 29 MCHC 33.1 RDW 14.7 Plt Count 207 MPV 10.1 Neut % (Auto) 58.5 Lymph % (Auto) 20.9 L Hodgeman % (Auto) 11.5 Eos % (Auto) 3.7 Baso % (Auto) 0.3 Neut # (Auto) 4.1 Lymph # (Auto) 1.5 Hodgeman # (Auto) 0.8 Eos # (Auto) 0.3 Baso # (Auto) 0.0 Total Counted 100 Immature Gran % 5.1 Nucleated RBC % 0.0 Immature Gran # 0.36 Segmented Neutrophils 57 Band Neutrophils 1 Lymphocytes 22 Monocytes 10 Eosinophils 10 Nucleated RBCs # 0.00 Platelet Estimate Normal Immature Plt Fraction 0.0 Hypochromasia Slight ABG pH 7.365 ABG pCO2 33.1 L ABG pO2 192.0 H ABG HCO3 19.7 L ABG Total CO2 17.6 L ABG O2 Saturation 99.0 ABG Base Excess -5.7 L Sodium Potassium Chloride Carbon Dioxide Anion Gap BUN Creatinine GFR Calculation BUN/Creatinine Ratio Glucose POC Glucose Calculated Osmolality Calcium Phosphorus 5.2 H Magnesium 1.7 L Prealbumin 14.4 L 01/14/17 01/14/17 03:30 06:21 WBC RBC Hgb Hct MCV MCH MCHC RDW Plt Count MPV Neut % (Auto) Lymph % (Auto) Hodgeman % (Auto) Eos % (Auto) Baso % (Auto) Neut # (Auto) Lymph # (Auto) Hodgeman # (Auto) Eos # (Auto) Baso # (Auto) Total Counted Immature Gran % Nucleated RBC % Immature Gran # Segmented Neutrophils Band Neutrophils Lymphocytes Monocytes Eosinophils Nucleated RBCs # Platelet Estimate Immature Plt Fraction Hypochromasia ABG pH ABG pCO2 ABG pO2 ABG HCO3 ABG Total CO2 ABG O2 Saturation ABG Base Excess Sodium 142 Potassium 4.7 Chloride 113 H Carbon Dioxide 21 Anion Gap 12.7 BUN 23 H D Creatinine 0.80 GFR Calculation 99 BUN/Creatinine Ratio 28.00 H Glucose 124 H POC Glucose 125 H Calculated Osmolality 287.1 Calcium 7.5 L Phosphorus Magnesium 1.8 Prealbumin
[2017-01-14] MEDS: INSULIN GLARGINE 100 UNIT/ML SUBCUT SCH (10:14)
[2017-01-14] MEDS: PROPOFOL 1,000 MG/100 ML BOTTLE IV SCH ×4 (10:40→21:54)
[2017-01-14] MEDS: SODIUM HYPOCHLORITE 0.25% IRRIG 473 ML BOTTLE TOP SCH (11:00)
--- NOTE | 2017-01-14 11:54 | Infectious Disease Progress ---
Assessment and Plan (1) Septic shock Status: Acute Assessment and plan: This was due to necrotizing fasciitis, resolved.. Current Visit: Yes (2) Acute renal failure Status: Resolved Assessment and plan: Resolved Current Visit: Yes (3) Atrial fibrillation with rapid ventricular response Status: Acute Current Visit: Yes (4) DM type 2 (diabetes mellitus, type 2) Status: Chronic Assessment and plan: Newly diagnosed with A1c of 11.7%. This is likely predisposing factor for the necrotizing fasciitis. Current Visit: Yes (5) Necrotizing fasciitis Status: Acute Assessment and plan: Extensive infection, necrosis involving the left groin/perineal area. Surprisingly on MRSA isolated, and a blood cultures have been negative. Recommendations: 1. Discontinue vancomycin and meropenem 2. Continue clindamycin [for the MRSA and any anaerobes] and aggressive wound care Current Visit: Yes Infectious Disease - PN: Subj Interval history: Patient doing okay, relatively unremarkable weekend, she remains off vasopressors with stable vitals. She has not had any fever. She is having a lot of drainage from the wound but not felt to have any further necrotic tissue requiring debridement. She is to go to the operating room for wound VAC placement today. Infectious Disease Exam (PN) - Constitutional Vitals: Temp Pulse Resp BP Pulse Ox 97.5 F L 76 12 82/66 100 01/14/17 08:00 01/14/17 11:00 01/14/17 11:05 01/14/17 11:00 01/14/17 11:00 General appearance: no acute distress Exam: General appearance: Sedated on vent - Eye Eye exam: Present: EOMI. no icterus Pupils: Present: DEBBIE - ENT ENT exam: ET tube in situ - Respiratory Respiratory exam: vesicular BS, no crepitations or wheezes - Cardiovascular Cardiovascular exam: regular rate and rhythm, no murmurs - GI/Abdominal GI/Abdominal exam: normal bowel sounds, soft, non-tender, no organomegaly or mass - Wounds bandaged - Extremities Exam Extremities exam: Mild bilateral lower extremity edema - Skin Skin exam: no rash Results - Labs CBC & BMP: 01/14/17 03:30 01/14/17 03:30 Lab Results: I have reviewed the past 24 hour labs (Blood cultures negative at day 3, wound culture only positive for MRSA, possible anaerobe as well but final anaerobic culture pending) Quality Measures - VTE Contraindication to Pharmacological VTE Prophylaxis: High Risk of Bleeding
[2017-01-14] MEDS ORDERED: HYDROmorphone 2 MG/1 ML VIAL ONE (12:52)
[2017-01-14] MEDS ORDERED: HYDROmorphone 2 MG/1 ML VIAL IV ONE (12:55)
[2017-01-14] MEDS: METOPROLOL TARTRATE 5 MG/5 ML VIAL IV SCH ×2 (13:12→18:03)
--- NOTE | 2017-01-14 13:28 | Ultrasound Report ---
Exam: US gallbladder Indication: High feeding residuals. Feeding tube. Comparison: None Technique: Using a transcutaneous probe, multiple grayscale and color Doppler images were captured and stored of the liver, gallbladder, right kidney, pancreas, aorta, and inferior vena cava. Findings: Liver: As measured, the right hepatic lobe measures 16.1 cm . Liver is hyperechoic compared to the right renal cortex and demonstrates blunted anatomic detail suggestive of hepatic steatosis. Color flow is present within the interrogated portal vein. Color flow is present within the interrogated hepatic venous structures. Gallbladder: The gallbladder wall measures 2.5 mm . Gallbladder is unremarkable in appearance. The common bile duct measures 6 mm . Pancreas: Pancreas demonstrates no specific evidence of acute pathology. Right kidney: The right kidney measures length: 10.6 cm Width: 4.7 cm AP: 4.7 cm . The right kidney demonstrates no evidence of acute pathology. Aorta and inferior vena cava: Aorta and inferior vena cavogram identified secondary to bowel gas. Impression: 1. Findings compatible with hepatic steatosis. 01/14/2017 1:24 PM Ordering provider: Ruma Padron PROCEDURE INTERPRETED AT [facility] DEPARTMENT OF RADIOLOGY Final Report Signed by: Dr. Modesto Larsen
[2017-01-14] MEDS: ENOXAPARIN 40 MG/0.4 ML SYRINGE SUBCUT SCH (14:04)
--- NOTE | 2017-01-14 14:17 | Hospitalist Progress Note ---
Assessment and Plan (1) Acute respiratory failure Status: Acute Assessment and plan: Patient is still on the vent. ABG from this morning was good. Patient was doing CPAP trials this morning. Dr. Chamberlain is managing that. Current Visit: Yes (2) Necrotizing fasciitis Status: Acute Assessment and plan: Continue clindamycin for Bacteroides and MRSA. Patient is a good candidate for wound care over at [facility] and IV antibiotics. Current Visit: Yes (3) Severe sepsis Status: Acute Assessment and plan: Normal saline bolus at 500 ml, start Levophed for blood pressure less than 80 systolic. Current Visit: Yes (4) Acute renal failure Status: Resolved Assessment and plan: Completely resolved with hydration. Current Visit: Yes (5) Atrial fibrillation with rapid ventricular response Status: Acute Assessment and plan: Currently in sinus rhythm and not on the diltiazem drip. Blood pressure unable to tolerate any beta blockers at this time Current Visit: Yes (6) DM type 2 (diabetes mellitus, type 2) Status: Chronic Assessment and plan: Blood sugars fairly well controlled on Lantus 10 units subcu daily Current Visit: Yes (7) Deaf-mutism Status: Chronic Current Visit: Yes Hospitalist: Subjective Interval history: Patient still requiring ventilation, start dilaudid 1 mg IV every 3 hours, Biliary drainage from tube, high tube residuals. Good bowel sounds. Patient requiring a bowel management system due to diarrhea. Will send a stool for C. difficile Exam - Constitutional Vitals: Period Temp Pulse Resp BP Sys/Parker Pulse Ox Last 24 Hr 97.1 F-98.3 F 53-108 10-19 77-148/49-89 97-100 Exam: Heart Rate-[RRR] Lungs-[CTAB but diminished ] GI-[+bs soft, very tender Ext-[chronic lymph edema] Neuro sedated and intubated on the vent psych unable to assess General [no acute distress] Skin large wound extending across her abdomen looks clean and dry. Results - Labs CBC & BMP: 01/14/17 03:30 01/14/17 03:30 Lab Results: I have reviewed the past 24 hour labs Labs: blood cx times 2, wound culture growing Bacteroides and MRSA both of which should be sensitive to clindamycin - Diagnostic Findings Procedure: Chest x-ray: report reviewed by me (Left pleural fluid), KUB x-ray: report reviewed by me (Nonspecific bowel gas pattern), Ultrasound: report reviewed by me (Hepatic steatosis) Quality Measures - VTE Contraindication to Pharmacological VTE Prophylaxis: High Risk of Bleeding
[2017-01-14] MEDS ORDERED: SODIUM CHLORIDE 0.9% 500 ML IV ONE (14:18)
[2017-01-14] MEDS: SODIUM CHLORIDE 0.9% 1,000 ML IV SCH ×2 (15:23→22:01)
[2017-01-15] MEDS: INSULIN REGULAR 100 UNIT/ML SUBCUT SCH ×4 (00:26→18:08)
[2017-01-15] MEDS: CLINDAMYCIN INJ 900 MG in PREMIX 1 EACH IV SCH ×3 (00:34→16:29)
[2017-01-15] MEDS: METOCLOPRAMIDE 10 MG/2 ML VIAL IV SCH ×4 (00:35→17:41)
[2017-01-15] MEDS: METOPROLOL TARTRATE 5 MG/5 ML VIAL IV SCH ×4 (00:37→17:30)
[2017-01-15] MEDS: PROPOFOL 1,000 MG/100 ML BOTTLE IV SCH ×2 (03:46→13:48)
[2017-01-15 04:01] LABS: ABG Base Excess -5.5 MMOL/L (-2.5-2.5); ABG HCO3 19.9 MMOL/L (20-26); ABG PCO2 35.2 MM HG (35-48); ABG PH 7.351 (7.35-7.45); ABG TCO2 18.1 MMOL/L (23-27)
[2017-01-15 04:13] LABS: Basophils % 0.3 % (0.0-0.8); Eosinophils # 0.3 10*3/uL (0.0-0.87); Eosinophils % 3.9 % (0.00-10.9); Hemoglobin 9.1 GM/DL (12.0-16.0); Immature Granulocytes % 3.5 %; Immature Granulocytes Absolute 0.28 #; Lymphocytes # 1.5 10*3/uL (1.4-4.0); Lymphocytes % 18.6 % (21.3-54.2); Mean Corpuscular HGB Conc 32.5 GM/DL (32-36); Mean Corpuscular Hemoglobin 29 PG (27-34); Mean Corpuscular Volume 89.7 FL (87-102); Mean Platelet Volume 9.4 FL (9.6-12.0); Monocytes # 0.8 10*3/uL (0.11-0.8); Monocytes % 10.5 % (1.7-12.7); Neutrophils % 63.2 % (38.7-73.9); Platelet Count 235 T/CUMM (130-400); Red Blood Count 3.12 MC/CUMM (3.8-5.5); Red Cell Distribution Width 14.8 % (9.3-17.3); White Blood Count 7.9 T/CUMM (4-12)
[2017-01-15] MEDS: SODIUM CHLORIDE 0.9% 1,000 ML IV SCH ×3 (04:16→20:31)
[2017-01-15 04:52] LABS: Calcium 7.4 MG/DL (8.5-10.1); Magnesium 1.7 MG/DL (1.8-2.4)
[2017-01-15 06:10] LABS: Hypochromasia 2+; Microcytosis 1+
--- NOTE | 2017-01-15 07:56 | Cardiology Progress Note ---
<Paula Marcus E - Last Filed: 01/15/17 11:51> Assessment and Plan - Time spent with patient Time spent with patient: Less than 30 minutes (1) Paroxysmal atrial fibrillation Status: Acute Assessment and plan: See plan of care listed below. Current Visit: Yes (2) Necrotizing fasciitis Status: Acute Assessment and plan: See plan of care listed below. Current Visit: Yes (3) DM type 2 (diabetes mellitus, type 2) Status: Chronic Assessment and plan: See plan of care listed below. Current Visit: Yes (4) Severe sepsis Status: Acute Assessment and plan: See plan of care listed below. Current Visit: Yes (5) Acute renal failure Status: Resolved Assessment and plan: See plan of care listed below. Current Visit: Yes (6) Deaf-mutism Status: Chronic Assessment and plan: See plan of care listed below. Current Visit: Yes Cardiology - PN: Subj Interval history: [employer] Supervisor: new to Dr. Webster SUMMARY: Ms. Mckeon is a 61 year old female with a history of type 2 diabetes mellitus and obesity who was admitted with septic shock, acute renal failure, and new onset rapid atrial fibrillation. We were consulted to see her and aid in management of her A. fib. She has had 2 extensive debridements of the left lower abdominal wall and pelvic area for necrotizing fasciitis. She has been on IV Cardizem and subsequently converted to normal sinus rhythm. She is no longer requiring vasopressors. She is making good urine. She had an echocardiogram which showed ejection fraction 60% with dilated left atrium and moderate TR with PA pressure 55. She is being treated with broad-spectrum antibiotics. She remains on mechanical ventilation. JANUARY 15, 2017 UPDATE: She remains in sinus rhythm with controlled rate. She continues to be intolerant to tube feedings, therefore, we have not started her on oral yogesh blocking agents at this time. We started IV lopressor yesterday but this has had to be held due to hypotension. Will continue to monitor. ASSESSMENT/PLAN: 1. PAROXYSMAL ATRIAL FIBRILLATION - Converted with IV Cardizem. She is currently not tolerating anything via NGT. We will continue to use IV Cardizem if she goes back into AFRVR. She has been rate controlled but has been unable to tolerate IV lopressor due to intermittent hypotension and HR<70. She has been started on anticoagulation. H&H is stable at 9.1 & 28.0. 2. NECROTIZING FASCIITIS - General surgery is following. She has had 2 surgical debridements and continues on broad spectrum antibiotics. 3. TYPE 2 DIABETES MELLITUS - She is on Accu-Cheks and sliding scale insulin. 4. SEPSIS - No longer requiring vasopressors. She is getting broad-spectrum antibiotics and IV fluids. 5. ACUTE RENAL FAILURE - Much improved with creatinine 0.6. Will monitor BMP. 6. HISTORY OF HEARING LOSS - Patient is deaf. Once patient is more alert, communication may be difficult. Exam (Progress Note) - Constitutional Vitals: Period Temp Pulse Resp BP Sys/Parker Pulse Ox Last 24 Hr 96.8 F-98.1 F 57-98 7-19 77-141/40-82 97-100 Exam: General appearance: Orally intubated and sedated on ventilator. Overweight, no acute distress. - Head Head exam: Present: normal inspection, normocephalic, atraumatic. Absent: hematoma, laceration - Eye Eye exam: Present: EOMI. Absent: conjunctival injection, nystagmus, periorbital swelling, scleral icterus, laceration to eyelids Pupils: Present: PERRL. Absent: constricted, dilated, fixed, irregular, unequal - ENT ENT exam: Present: Orally intubated, normal external ear exam, NGT in place to LIWS. - Neck Neck exam: Present: normal inspection. Absent: lymphadenopathy, meningismus, tenderness, thyromegaly - Respiratory Respiratory exam: Present: Mechanically ventilated breath sounds. Absent: accessory muscle use - Cardiovascular Cardiovascular exam: Present: regular rate and rhythm. Absent: gallop, rubs, murmur - GI/Abdominal GI/Abdominal exam: Present: normal bowel sounds, soft. Wound vac to left lower abdomen, left upper thigh with surrounding erythema. Absent: distended, firm, guarding, hernia, mass, tenderness, rebound. - Extremities Exam Extremities exam: Present: normal inspection, normal capillary refill. Upper extremity pulses 2+. Lower extremity pulses 2+. Absent: calf tenderness, edema - Back Exam Back exam: Present: Unable to examine due to habitus. Sedated on mechanical ventilator. - Neurological Exam Neurological exam: Present: Limited due to habitus (on ventilator). Patient is also deaf which limits communication. She does move all extremities spontaneously. No resting or essential tremor. - Psychiatric Psychiatric exam: Present: Unable to adequately assess due to patient being sedated and on mechanical ventilation. - Skin Skin exam: Present: normal color, warm, dry, intact. Absent: cyanosis, diaphoretic, rash, urticaria Result/EKG - Labs CBC & BMP: 01/15/17 03:30 01/15/17 03:30 Lab Results: I have reviewed the past 24 hour labs Labs: Laboratory Results - last 24 hr 01/14/17 01/14/17 01/15/17 11:45 16:56 00:25 WBC RBC Hgb Hct MCV MCH MCHC RDW Plt Count MPV Neut % (Auto) Lymph % (Auto) [place] % (Auto) Eos % (Auto) Baso % (Auto) Neut # (Auto) Lymph # (Auto) [place] # (Auto) Eos # (Auto) Baso # (Auto) Immature Gran % Nucleated RBC % Immature Gran # Nucleated RBCs # Immature Plt Fraction Hypochromasia Microcytosis ABG pH ABG pCO2 ABG pO2 ABG HCO3 ABG Total CO2 ABG O2 Saturation ABG Base Excess Sodium Potassium Chloride Carbon Dioxide Anion Gap BUN Creatinine GFR Calculation BUN/Creatinine Ratio Glucose POC Glucose 135 H 114 H 143 H Calculated Osmolality Calcium Magnesium 01/15/17 01/15/17 01/15/17 03:30 03:30 03:30 WBC 7.9 RBC 3.12 L Hgb 9.1 L Hct 28.0 L MCV 89.7 MCH 29 MCHC 32.5 RDW 14.8 Plt Count 235 MPV 9.4 L Neut % (Auto) 63.2 Lymph % (Auto) 18.6 L [place] % (Auto) 10.5 Eos % (Auto) 3.9 Baso % (Auto) 0.3 Neut # (Auto) 5.0 Lymph # (Auto) 1.5 [place] # (Auto) 0.8 Eos # (Auto) 0.3 Baso # (Auto) 0.0 Immature Gran % 3.5 Nucleated RBC % 0.0 Immature Gran # 0.28 Nucleated RBCs # 0.00 Immature Plt Fraction 0.0 Hypochromasia 2+ Microcytosis 1+ ABG pH 7.351 ABG pCO2 35.2 ABG pO2 204.0 H ABG HCO3 19.9 L ABG Total CO2 18.1 L ABG O2 Saturation 99.0 ABG Base Excess -5.5 L Sodium 143 Potassium 4.0 Chloride 113 H Carbon Dioxide 23 Anion Gap 11.0 BUN 15 Creatinine 0.60 GFR Calculation 124 BUN/Creatinine Ratio 25.00 H Glucose 120 H POC Glucose Calculated Osmolality 286.0 Calcium 7.4 L Magnesium 1.7 L 01/15/17 05:48 WBC RBC Hgb Hct MCV MCH MCHC RDW Plt Count MPV Neut % (Auto) Lymph % (Auto) [place] % (Auto) Eos % (Auto) Baso % (Auto) Neut # (Auto) Lymph # (Auto) [place] # (Auto) Eos # (Auto) Baso # (Auto) Immature Gran % Nucleated RBC % Immature Gran # Nucleated RBCs # Immature Plt Fraction Hypochromasia Microcytosis ABG pH ABG pCO2 ABG pO2 ABG HCO3 ABG Total CO2 ABG O2 Saturation ABG Base Excess Sodium Potassium Chloride Carbon Dioxide Anion Gap BUN Creatinine GFR Calculation BUN/Creatinine Ratio Glucose POC Glucose 160 H Calculated Osmolality Calcium Magnesium - EKG EKG results: interpreted by me, sinus rhythm Quality Measures - VTE Contraindication to Pharmacological VTE Prophylaxis: High Risk of Bleeding <Colleen San - Last Filed: 01/15/17 19:50> Cardiology - PN: Subj Interval history: I have personally interviewed and evaluated the patient, reviewed the chart and discussed medical decision-making with practitioner Amrit. I have read this note and agree with her documentation here in. Exam (Progress Note) - Constitutional Vitals: Period Temp Pulse Resp BP Sys/Parker Pulse Ox Last 24 Hr 97.9 F-98.3 F 57-96 7-24 78-188/36-70 96-100 Result/EKG - Labs CBC & BMP: 01/15/17 03:30 01/15/17 03:30 Labs: Laboratory Results - last 24 hr 01/15/17 01/15/17 01/15/17 00:25 03:30 03:30 WBC 7.9 RBC 3.12 L Hgb 9.1 L Hct 28.0 L MCV 89.7 MCH 29 MCHC 32.5 RDW 14.8 Plt Count 235 MPV 9.4 L Neut % (Auto) 63.2 Lymph % (Auto) 18.6 L [place] % (Auto) 10.5 Eos % (Auto) 3.9 Baso % (Auto) 0.3 Neut # (Auto) 5.0 Lymph # (Auto) 1.5 [place] # (Auto) 0.8 Eos # (Auto) 0.3 Baso # (Auto) 0.0 Immature Gran % 3.5 Nucleated RBC % 0.0 Immature Gran # 0.28 Nucleated RBCs # 0.00 Immature Plt Fraction 0.0 Hypochromasia 2+ Microcytosis 1+ ABG pH ABG pCO2 ABG pO2 ABG HCO3 ABG Total CO2 ABG O2 Saturation ABG Base Excess Sodium 143 Potassium 4.0 Chloride 113 H Carbon Dioxide 23 Anion Gap 11.0 BUN 15 Creatinine 0.60 GFR Calculation 124 BUN/Creatinine Ratio 25.00 H Glucose 120 H POC Glucose 143 H Calculated Osmolality 286.0 Calcium 7.4 L Magnesium 1.7 L 01/15/17 01/15/17 01/15/17 03:30 05:48 11:24 WBC RBC Hgb Hct MCV MCH MCHC RDW Plt Count MPV Neut % (Auto) Lymph % (Auto) [place] % (Auto) Eos % (Auto) Baso % (Auto) Neut # (Auto) Lymph # (Auto) [place] # (Auto) Eos # (Auto) Baso # (Auto) Immature Gran % Nucleated RBC % Immature Gran # Nucleated RBCs # Immature Plt Fraction Hypochromasia Microcytosis ABG pH 7.351 ABG pCO2 35.2 ABG pO2 204.0 H ABG HCO3 19.9 L ABG Total CO2 18.1 L ABG O2 Saturation 99.0 ABG Base Excess -5.5 L Sodium Potassium Chloride Carbon Dioxide Anion Gap BUN Creatinine GFR Calculation BUN/Creatinine Ratio Glucose POC Glucose 160 H 142 H Calculated Osmolality Calcium Magnesium 01/15/17 17:31 WBC RBC Hgb Hct MCV MCH MCHC RDW Plt Count MPV Neut % (Auto) Lymph % (Auto) [place] % (Auto) Eos % (Auto) Baso % (Auto) Neut # (Auto) Lymph # (Auto) [place] # (Auto) Eos # (Auto) Baso # (Auto) Immature Gran % Nucleated RBC % Immature Gran # Nucleated RBCs # Immature Plt Fraction Hypochromasia Microcytosis ABG pH ABG pCO2 ABG pO2 ABG HCO3 ABG Total CO2 ABG O2 Saturation ABG Base Excess Sodium Potassium Chloride Carbon Dioxide Anion Gap BUN Creatinine GFR Calculation BUN/Creatinine Ratio Glucose POC Glucose 122 H Calculated Osmolality Calcium Magnesium
--- NOTE | 2017-01-15 08:34 | XRay Report ---
XR chest 1V portable Indication: Ventilator Comparison: Chest x-ray dated January 14, 2017 3:07 AM Technique: Single frontal view of the chest. Findings: Lines and tubes appear grossly unchanged. Continued cardiomegaly. Continued bibasilar atelectasis/consolidation, greater on the left, with small left pleural fluid. Visualized osseous and surrounding soft tissue structures appear grossly unchanged. IMPRESSION: No significant interval change. PROCEDURE INTERPRETED AT [facility] DEPARTMENT OF RADIOLOGY Final Report Signed by: Dr Adarsh Maldonado
--- NOTE | 2017-01-15 08:40 | Pulmonology Progress Note ---
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 She has had extensive debridement and has a large open wound. She was septic but is doing better now. She is a poorly controlled diabetic. She went back to surgery Saturday and had further debridement. She had a fairly good weekend and was stable on the ventilator. She is not on any pressors now. Her renal function is back to normal. She has excellent oxygenation on the ventilator. She did grow out MRSA along with anaerobes. She seems to be tolerating CPAP fairly well now. Her chest x-ray has been stable. Overall she is reasonably stable at present. Exam (Progress Note) - Constitutional Vitals: Period Temp Pulse Resp BP Sys/Parker Pulse Ox Last 24 Hr 96.8 F-98.1 F 57-96 7-19 77-140/40-82 97-100 Exam: General appearance: no acute distress (Patient looks reasonably comfortable on the ventilator. She is comfortable on CPAP. She is sedated at present.), over weight - Head Head exam: Present: normal inspection - Eye Eye exam: Present: EOMI. Absent: scleral icterus Pupils: Present: DEBBIE - ENT ENT exam: Present: other (ET tube is in good position) - Neck Neck exam: Present: normal inspection - Respiratory Respiratory exam: Present: clear to auscultation bilaterally, she has good breath sounds bilaterally. She does not have any rales or wheezing. - Cardiovascular Cardiovascular exam: Present: She has a regular rhythm now without loud murmur. - GI/Abdominal GI/Abdominal exam: Present: hypoactive bowel sounds, soft. Absent: organomegaly , tenderness. Her lower abdomen and perineum is wrapped - Extremities Exam Extremities exam: Absent: calf tenderness, edema - Neurological Exam Neurological exam: Present: She is sedated on the ventilator. - Psychiatric Psychiatric exam: Absent: anxious - Skin Skin exam: Present: warm, dry Results - Labs CBC & BMP: 01/15/17 03:30 01/15/17 03:30 Labs: Her PO2 is 204 with a PCO2 of 35 and a pH of 7.35 - Diagnostic Findings Procedure: Chest x-ray: image reviewed by me, report reviewed by me (Chest x- ray remains clear.) Assessment and Plan (1) Necrotizing fasciitis Status: Acute Assessment and plan: Patient has extensive necrotizing fasciitis and has had significant surgical debridement. She has done fairly well on the ventilator and her wounds are doing better. She can probably be extubated soon. She will continue with antibiotics. Current Visit: Yes (2) Severe sepsis Status: Acute Assessment and plan: She is getting broad-spectrum antibiotics and fluids. She is hemodynamically more stable and is starting to make better urine output. She is off pressors now and much more stable. Current Visit: Yes (3) Acute renal failure Status: Resolved Assessment and plan: The patient's creatinine is much improved and now down to 0.6. Current Visit: Yes (4) Atrial fibrillation with rapid ventricular response Status: Acute Assessment and plan: The patient is back in a sinus rhythm now and her heart rate is better. She appears to be hemodynamically stable now. Current Visit: Yes (5) DM type 2 (diabetes mellitus, type 2) Status: Chronic Assessment and plan: The patient did not know she was a diabetic to last week. Her glucose is 160 now. Current Visit: Yes (6) Deaf-mutism Status: Chronic Assessment and plan: Communication may be difficult. Current Visit: Yes (7) On mechanically assisted ventilation Status: Acute Assessment and plan: She is stable on the ventilator and is quite stable. Her wounds apparently are doing better and she may not need further surgery. She should be ready to extubate if she does not need further surgery. Current Visit: Yes
--- NOTE | 2017-01-15 09:23 | Hospitalist Progress Note ---
Assessment and Plan (1) Acute respiratory failure Status: Acute Assessment and plan: doing well on cpap trials. Current Visit: Yes (2) Necrotizing fasciitis Status: Acute Assessment and plan: Continue clindamycin for Bacteroides and MRSA. Patient is a good candidate for wound care over at [facility] and IV antibiotics. Current Visit: Yes (3) Severe sepsis Status: Acute Assessment and plan: Continue IV fluids, CVP pressure reviewed and is good. Continue IV fluids. Pressors had to be started Current Visit: Yes (4) Acute renal failure Status: Resolved Assessment and plan: Resolved Current Visit: Yes (5) Atrial fibrillation with rapid ventricular response Status: Acute Assessment and plan: Currently in sinus rhythm Current Visit: Yes (6) DM type 2 (diabetes mellitus, type 2) Status: Chronic Assessment and plan: Blood sugars fairly well controlled on Lantus 10 units sq daily Current Visit: Yes (7) Deaf-mutism Status: Chronic Current Visit: Yes (8) Ileus Status: Acute Assessment and plan: cont reglan, ct of abdomen/pelvis Current Visit: Yes Hospitalist: Subjective Interval history: Dr. Chamberlain says she is doing well enough to extubate. Dr Latrice WATSON is not sure whether he will have to take her back to surgery for another debridement. Her bowels still are not working. She has high tube feed residuals. I will do a ct of abdomen and pelvis to look for obstruction. Exam - Constitutional Vitals: Period Temp Pulse Resp BP Sys/Parker Pulse Ox Last 24 Hr 96.8 F-98.1 F 57-96 7-17 77-188/40-82 98-100 Exam: Heart Rate-[RRR] Lungs-[CTAB GI-[+bs soft, very tender Ext-[chronic lymph edema] Neuro sedated and intubated on the vent psych unable to assess General [no acute distress] Results - Labs CBC & BMP: 01/15/17 03:30 01/15/17 03:30 Lab Results: I have reviewed the past 24 hour labs Quality Measures - VTE Contraindication to Pharmacological VTE Prophylaxis: High Risk of Bleeding
[2017-01-15] MEDS: HYDROmorphone 2 MG/1 ML VIAL IV PRN ×2 (09:37→17:53)
[2017-01-15] MEDS: PANTOPRAZOLE 40 MG VIAL IV SCH (09:38)
[2017-01-15] MEDS: SODIUM HYPOCHLORITE 0.25% IRRIG 473 ML BOTTLE TOP SCH (09:41)
[2017-01-15] MEDS: ENOXAPARIN 40 MG/0.4 ML SYRINGE SUBCUT SCH (09:43)
--- NOTE | 2017-01-15 10:08 | Infectious Disease Progress ---
Assessment and Plan (1) Septic shock Status: Acute Assessment and plan: This was due to necrotizing fasciitis, resolved.. Current Visit: Yes (2) Acute renal failure Status: Resolved Assessment and plan: Resolved Current Visit: Yes (3) Atrial fibrillation with rapid ventricular response Status: Acute Current Visit: Yes (4) DM type 2 (diabetes mellitus, type 2) Status: Chronic Assessment and plan: Newly diagnosed with A1c of 11.7%. This is likely predisposing factor for the necrotizing fasciitis. Current Visit: Yes (5) Necrotizing fasciitis Status: Acute Assessment and plan: Extensive infection, necrosis involving the left groin/perineal area, with MRSA and anaerobes isolated. Recommendations: Continue clindamycin [for the MRSA and any anaerobes] and aggressive wound care. Plan is to treat with antibiotics for 10-14 days depending on the appearance of the wound which I am told looks good as of yesterday. Current Visit: Yes Infectious Disease - PN: Subj Interval history: Patient doing okay, extubated this morning. She has not had any fever. Wound VAC placed yesterday. Infectious Disease Exam (PN) - Constitutional Vitals: Temp Pulse Resp BP Pulse Ox 97.9 F 85 24 97/54 100 01/15/17 08:02 01/15/17 09:18 01/15/17 09:18 01/15/17 09:18 01/15/17 09:18 General appearance: no acute distress Exam: General appearance: Drowsy as she just got Dilaudid, comfortable - Eye Eye exam: Present: EOMI. no icterus Pupils: Present: DEBBIE - Respiratory Respiratory exam: vesicular BS, no crepitations or wheezes - Cardiovascular Cardiovascular exam: regular rate and rhythm, no murmurs - GI/Abdominal GI/Abdominal exam: normal bowel sounds, soft, non-tender, no organomegaly or mass - Wounds with VAC - Extremities Exam Extremities exam: Mild bilateral lower extremity edema - Skin Skin exam: no rash Results - Labs CBC & BMP: 01/15/17 03:30 01/15/17 03:30 Lab Results: I have reviewed the past 24 hour labs (MRSA in 2 anaerobes of mood , blood cultures negative) Quality Measures - VTE Contraindication to Pharmacological VTE Prophylaxis: High Risk of Bleeding
--- NOTE | 2017-01-15 11:40 | CT Report ---
CT of the abdomen and pelvis without contrast. Indication: Generalized abdominal pain and distention. Axial images were obtained with sagittal and coronal reconstructions. No previous study. Oral contrast was administered. The heart is enlarged. There is no pericardial effusion. No pleural effusion is seen. There is moderately severe atelectasis present at each lung base. The liver is normal in size. A nasogastric tube terminates within the stomach. There is mild wall thickening of the gastric antrum. The loops of small intestine are nondilated. There is no wall thickening seen. The terminal ileum presents a normal appearance. The appendix is not discretely seen. No surgical history given. The colon is not dilated. There is no colonic wall thickening. Contrast material extends to the level of the rectum, without evidence of obstruction. A bowel management device is seen in the rectum. The urinary bladder is collapsed around a Manzo catheter. Within the right pelvis, there is a 7.7 x 4.7 cm cystic lesion. The uterus size is normal. Within the lumen of the uterus, there is a curved radiopaque device the area of the endometrium. The left ovary is not enlarged. No free fluid is seen within the pelvis. There is fatty infiltration of the liver. Hepatic granulomas are visible. The gallbladder is mildly distended without wall thickening appreciated. There is no splenic enlargement. There is no adrenal enlargement. There is no pancreatic enlargement. The kidneys are normal in size, location, and contour. No nephrolithiasis. No hydronephrosis. No adenopathy is seen. Within the subcutaneous tissues, located predominantly dependently, edema is present, moderately severe. Degenerative changes are present within the spinal column. There is a grade 1 anterolisthesis of L4 on L5. Impression: 1. No evidence of bowel obstruction. The bowel is nondilated, and contrast administered through the nasogastric tube on the floor extends to the rectum. 2. Large cystic lesion within the right adnexa. 4. Generalized subcutaneous edema. 5. Fatty infiltration of the liver. 6. Nonspecific intrauterine device. The CT exam was performed using one or more of the following dose reduction techniques: Automated exposure control, adjustment of the mA and/or kV according to patient size, or use of iterative reconstruction technique. PROCEDURE INTERPRETED AT [facility] DEPARTMENT OF RADIOLOGY Final Report Signed by: Dr. Claudia Brush
[2017-01-15] MEDS: NOREPINEPHRINE 8 MG in SODIUM CHLORIDE 0.9% 242 ML IV SCH (11:49)
--- NOTE | 2017-01-15 12:41 | Event Note ---
She is stable. She has a massive open wound of her perineum and her left lower quadrant and anterior thigh. We have a wound VAC in place. I will probably take this down tomorrow or and see if we need to do more debridement. She is not ready to go to [facility]. She is still in the acute phase of us having to periodically debride and manage her wound care.
--- NOTE | 2017-01-15 13:35 | Gastrointestinal Consult Note ---
<Monica Rocha Venancio - Last Filed: 01/15/17 14:50> Assessment and Plan (1) Ileus Status: Acute Assessment and plan: 01/15-Recent onset of high residuals with tube feedings with CT of abdomen w/o contrast showing no evidence of bowel obstruction, nondilated bowel without other acute findings. Hx of diabetes, not well controlled. KUB and ultrasound results noted as below. BMS in place with watery stools, negative for CDF 1. Plan an addendum to follow by Dr. Merino. Current Visit: Yes History of Present Illness Chief complaint: Ileus, hx of gastroparesis History of present illness: Ms. Mckeon is a 61 year old female who was admitted to the hospital on 01/10 with complaints of left hip pain. According to the record, patient is a deaf mute and is unable to contribute to her health history. No family is available during visit therefore information obtained from chart review. Patient was initially seen at [facility] a week prior to admission and was told nothing was wrong and discharged back home. At time of admission, spouse reported patient was unable to walk on her left leg and denied any falls or injuries related to this. Since this time, patient was admitted to the critical care unit with septic shock due to necrotizing fasciitis of her perineum and underwent debridement as well as the left groin and abdominal wall. She currently has a wound VAC in place. She was intubated and ventilated on the day of admission however has been extubated since this time. She had tube feedings initiated via NG tube however as of recent has been noted to have increased residuals with this and tube feedings have had to be held. She has a history of diabetes mellitus and is reported to be poorly controlled. She had a CT scan of the abdomen done without contrast today which showed no evidence of bowel obstruction, mild wall thickening of the gastric antrum, nondilated loops of small intestine and a normal terminal ileum presentation. She had a KUB on yesterday with no acute findings as well as a gallbladder ultrasound with findings of hepatic steatosis. Patient does have a BMS in place with watery dark output noted. Note that her stools 1 are negative for Clostridium difficile. Patient is noted to be positive for MRSA and is followed by Dr. Ulloa at this time. Home Medications Medication Instructions Recorded Confirmed Type Acetaminophen 2 tablet PO Q6HR PRN 01/10/17 01/10/17 History Metformin HCl 1 tablet PO BID 01/10/17 01/10/17 History cefUROXime axetil [Cefuroxime] 1 tablet PO BID 01/10/17 01/10/17 History Allergies Allergy/AdvReac Type Severity Reaction Status Date / Time No Known Allergies Allergy Unverified 01/10/17 01:13 Medical,Surgical,& Family Hx - Medical History Cardio: Comment Only: Cardiovascular Problems (unknown - pt is deaf/mute, significant other does not know) HEENT: History of: Ear Problem (DEAF) Endocrine: History of: Diabetes Mellitus (IDDM), Diabetes Mellitus (NIDDM) Respiratory: Comment Only: Respiratory Problems (unknown - pt is deaf/mute, significant other does not know) Renal: Comment Only: Renal Problems (unknown - pt is deaf/mute, significant other does not know) Genitourinary: Comment Only: Bladder Problem (unknown - pt is deaf/mute, significant other does not know) Gastrointestinal: Comment Only: GI Problems (unknown - pt is deaf/mute, significant other does not know) Musculoskeletal: Comment Only: Musculoskeletal Problems (unknown - pt is deaf/mute, significant other does not know) Hematology: Comment Only: Bleeding Problems (unknown - pt is deaf/mute, significant other does not know) Reproductive: Comment Only: Reproductive Problems (unknown - pt is deaf/mute, significant other does not know) Other: Comment Only: Miscellaneous Medical Problems (unknown - pt is deaf/mute, significant other does not know) - Surgical History Cardiac Surgeries: Comment Only: Femoral-Popliteal Bypass Graft (unknown - pt is deaf/mute, significant other does not know), Cardiac Catheterization (unknown - pt is deaf/ mute, significant other does not know), Cardiac Surgery (unknown - pt is deaf/ mute, significant other does not know), Carotid Endarterectomy (unknown - pt is deaf/mute, significant other does not know), Internal Defibrillator (unknown - pt is deaf/mute, significant other does not know), Vascular Access Devices ( unknown - pt is deaf/mute, significant other does not know) Thoracic Surgeries: Comment Only: Organ Transplant (unknown - pt is deaf/mute, significant other does not know) HEENT Surgeries: Comment Only: Carotid Endarterectomy (unknown - pt is deaf/mute, significant other does not know), Eye Surgery (unknown - pt is deaf/mute, significant other does not know), Tonsilectomy & Adenoidectomy (unknown - pt is deaf/mute, significant other does not know) Abdominal Surgeries: Comment Only: Abdominal Surgery (unknown - pt is deaf/mute, significant other does not know), Hernia Repair (unknown - pt is deaf/mute, significant other does not know), Splenectomy (unknown - pt is deaf/mute, significant other does not know) Reproductive Surgeries: Comment Only: Genitourinary Surgery (unknown - pt is deaf/mute, significant other does not know), Gynecologic Surgery (unknown - pt is deaf/mute, significant other does not know) - Social History Smoking Status: Unknown if ever smoked Frequency of Alcohol Use: None Type of Drug Use: None ROS unobtainable: due to mental status Exam - Constitutional Vitals: Period Temp Pulse Resp BP Sys/Parker Pulse Ox Last 24 Hr 96.8 F-98.3 F 57-96 7-24 78-188/36-70 98-100 General appearance: no acute distress, morbidly obese - Head Head exam: Present: normal inspection, normocephalic - Eye Eye exam: Present: other (Lids and conjunctival unremarkable). Absent: scleral icterus - ENT ENT exam: Present: normal exam, normal oropharynx - Neck Neck exam: Present: normal inspection - Respiratory Respiratory exam: Present: clear to auscultation bilaterally. Absent: rales, rhonchi, wheezes - Cardiovascular Cardiovascular exam: Present: regular rate and rhythm. Absent: diastolic murmur , JVD, systolic murmur - GI/Abdominal GI/Abdominal exam: Present: normal bowel sounds, soft. Absent: ascites, distended, mass, organomegaly, tenderness - Extremities Exam Extremities exam: Present: normal inspection, full ROM - Back Exam Back exam: Present: normal inspection - Neurological Exam Neurological exam: Present: alert, altered - Psychiatric Psychiatric exam: Present: normal affect, normal mood - Skin Skin exam: Present: normal color, warm, dry Results - Labs CBC & BMP: 01/15/17 03:30 01/15/17 03:30 Lab Results: I have reviewed the past 24 hour labs - Diagnostic Findings Procedure: CT Abdomen and Pelvis: report reviewed by me Quality Measures - VTE Contraindication to Pharmacological VTE Prophylaxis: High Risk of Bleeding <Peyman Merino - Last Filed: 01/15/17 19:03> History of Present Illness Chief complaint: 3030 History of present illness: Ms. Mckeon is a 61 year old female Exam - Constitutional Vitals: Period Temp Pulse Resp BP Sys/Parker Pulse Ox Last 24 Hr 97.9 F-98.3 F 57-96 7-24 78-188/36-70 96-100 Results - Labs CBC & BMP: 01/15/17 03:30 01/15/17 03:30
[2017-01-15] MEDS: INSULIN GLARGINE 100 UNIT/ML SUBCUT SCH (13:47)
[2017-01-15] MEDS ORDERED: DEXTROSE 50% 25 GM/50 ML VIAL IV PRN (16:13)
[2017-01-15] MEDS ORDERED: DEXTROSE 10% 1,000 ML IV PRN (17:00)
[2017-01-15] MEDS ORDERED: TRACE ELEMENTS (5) 1 ML, MULTIVITAMIN INJ 10 ML in AMINO ACIDS/DEXT/LYTES 5-15% 2,000 ML IV SCH (17:00)
[2017-01-15] MEDS: FAT EMULSION 20% 250 ML IV SCH (17:41)
[2017-01-16] MEDS: METOPROLOL TARTRATE 5 MG/5 ML VIAL IV SCH ×4 (00:36→18:23)
[2017-01-16] MEDS: CLINDAMYCIN INJ 900 MG in PREMIX 1 EACH IV SCH ×3 (00:36→16:07)
[2017-01-16] MEDS: INSULIN REGULAR 100 UNIT/ML SUBCUT SCH ×4 (00:37→18:06)
[2017-01-16] MEDS: METOCLOPRAMIDE 10 MG/2 ML VIAL IV SCH ×4 (00:38→18:12)
[2017-01-16] MEDS: HYDROmorphone 2 MG/1 ML VIAL IV PRN ×3 (01:47→17:07)
[2017-01-16] MEDS: SODIUM CHLORIDE 0.9% 1,000 ML IV SCH ×4 (02:00→11:32)
[2017-01-16 04:16] LABS: Basophils % 0.2 % (0.0-0.8); Eosinophils # 0.3 10*3/uL (0.0-0.87); Eosinophils % 4.1 % (0.00-10.9); Hematocrit 27.6 VOL% (35.7-47.0); Hemoglobin 8.5 GM/DL (12.0-16.0); Immature Granulocytes % 1.7 %; Immature Granulocytes Absolute 0.14 #; Lymphocytes # 1.3 10*3/uL (1.4-4.0); Lymphocytes % 15.6 % (21.3-54.2); Mean Corpuscular HGB Conc 30.8 GM/DL (32-36); Mean Corpuscular Hemoglobin 29 PG (27-34); Mean Corpuscular Volume 93.6 FL (87-102); Mean Platelet Volume 9.9 FL (9.6-12.0); Monocytes # 0.8 10*3/uL (0.11-0.8); Monocytes % 10.2 % (1.7-12.7); Neutrophils # 5.6 10*3/uL (1.4-7.4); Neutrophils % 68.2 % (38.7-73.9); Platelet Count 276 T/CUMM (130-400); Red Blood Count 2.95 MC/CUMM (3.8-5.5); White Blood Count 8.2 T/CUMM (4-12)
[2017-01-16 04:45] LABS: Calcium 7.5 MG/DL (8.5-10.1); Magnesium 1.8 MG/DL (1.8-2.4); Potassium 4.2 MMOL/L (3.5-5.1)
[2017-01-16 05:35] LABS: Band Neutrophils 3 % (0-10); Eosinophils 7 % (0-10); Giant Platelets Few; Hypochromasia 1+; Lymphocytes 12 % (20-55); Microcytosis 1+; Platelet Estimate Adequate; Segmented Neutrophils 70 % (50-85); Total Cells Counted 100
[2017-01-16] MEDS: INSULIN GLARGINE 100 UNIT/ML SUBCUT SCH (08:12)
[2017-01-16] MEDS: PANTOPRAZOLE 40 MG VIAL IV SCH (08:13)
--- NOTE | 2017-01-16 08:51 | Pulmonology Progress Note ---
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 She has had extensive debridement and has a large open wound. She was septic but is doing better now. She is a poorly controlled diabetic. She went back to surgery Saturday and had further debridement. She had a fairly good weekend and was stable on the ventilator. She is not on any pressors now. Her renal function is back to normal. She has excellent oxygenation on the ventilator. She did grow out MRSA along with anaerobes. Yesterday she did well on CPAP and was extubated. She is breathing comfortably on low-flow oxygen. She still has a huge wound and will require extensive wound care. At present she is relatively stable. Exam (Progress Note) - Constitutional Vitals: Period Temp Pulse Resp BP Sys/Parker Pulse Ox Last 24 Hr 97.3 F-98.5 F 73-95 10-24 88-136/36-71 96-100 Exam: General appearance: no acute distress (Patient looks reasonably comfortable on low-flow oxygen now.) - Head Head exam: Present: normal inspection - Eye Eye exam: Present: EOMI. Absent: scleral icterus Pupils: Present: DEBBIE - ENT ENT exam: Present: Unremarkable - Neck Neck exam: Present: normal inspection - Respiratory Respiratory exam: Present: clear to auscultation bilaterally, she has good breath sounds bilaterally. She does not have any rales or wheezing. - Cardiovascular Cardiovascular exam: Present: She has a regular rhythm now without loud murmur. - GI/Abdominal GI/Abdominal exam: Present: hypoactive bowel sounds, soft. Absent: organomegaly , tenderness. Her lower abdomen and perineum is wrapped - Extremities Exam Extremities exam: Absent: calf tenderness, edema - Neurological Exam Neurological exam: Present: She moves everything but is very sleepy now. - Psychiatric Psychiatric exam: Absent: anxious - Skin Skin exam: Present: warm, dry Results - Labs CBC & BMP: 01/16/17 03:30 01/16/17 03:30 Assessment and Plan (1) Necrotizing fasciitis Status: Acute Assessment and plan: Patient has extensive necrotizing fasciitis and has had significant surgical debridement. She is on antibiotics and will continue with wound care. Current Visit: Yes (2) Severe sepsis Status: Acute Assessment and plan: She is getting broad-spectrum antibiotics and fluids. She is hemodynamically more stable and is starting to make better urine output. She is off pressors now and much more stable. Current Visit: Yes (3) Acute renal failure Status: Resolved Assessment and plan: The patient's creatinine is much improved and now down to 0.6. Current Visit: No (4) Atrial fibrillation with rapid ventricular response Status: Resolved Assessment and plan: The patient is back in a sinus rhythm now and her heart rate is better. She appears to be hemodynamically stable now. Current Visit: No (5) DM type 2 (diabetes mellitus, type 2) Status: Chronic Assessment and plan: The patient did not know she was a diabetic to last week. Her glucose is 168 now. Current Visit: Yes (6) Deaf-mutism Status: Chronic Assessment and plan: Communication may be difficult. He is resting comfortably off the ventilator now. Current Visit: Yes (7) On mechanically assisted ventilation Status: Acute Assessment and plan: She was extubated yesterday and is breathing comfortably. She is not having any respiratory distress now. Current Visit: Yes
[2017-01-16] MEDS: SODIUM HYPOCHLORITE 0.25% IRRIG 473 ML BOTTLE TOP SCH (09:00)
--- NOTE | 2017-01-16 10:03 | Gastrointestinal Progress Note ---
<KlaiantoinetteMonica Venancio - Last Filed: 01/16/17 10:00> Assessment and Plan (1) Ileus Status: Acute Assessment and plan: 01/16-NG tube remains clamped. Tube feedings on hold. Good bowel sounds and continued BMS output. Continue to monitor at this time. Plan an addendum to follow by Dr. Merino. 01/15-Recent onset of high residuals with tube feedings with CT of abdomen w/o contrast showing no evidence of bowel obstruction, nondilated bowel without other acute findings. Hx of diabetes, not well controlled. KUB and ultrasound results noted as below. BMS in place with watery stools, negative for CDF 1. Plan an addendum to follow by Dr. Merino. Current Visit: Yes Gastroenterology - PN: Subj Interval history: Cc: Ileus Patient is seen sleeping and somewhat difficult to arouse with verbal/tactile stimuli. NG tube remains clamped at this time. She had TPN initiated. Patient is noted to have good bowel sounds at this time and continued output from the BMS. Abdomen is soft, nontender. No reports of nausea or vomiting at this time. ROS: No acute distress noted Exam (Progress Note) - Constitutional Vitals: Period Temp Pulse Resp BP Sys/Parker Pulse Ox Last 24 Hr 97.3 F-98.5 F 73-95 10-21 88-136/36-71 96-100 General appearance: no acute distress, over weight - Head Head exam: Present: normal inspection, normocephalic - Eye Eye exam: Present: other (Lids and conjunctive are unremarkable). Absent: scleral icterus - ENT ENT exam: Present: normal exam, normal oropharynx - Neck Neck exam: Present: normal inspection - Respiratory Respiratory exam: Present: clear to auscultation bilaterally. Absent: rales, rhonchi, wheezes - Cardiovascular Cardiovascular exam: Present: regular rate and rhythm. Absent: diastolic murmur , JVD, systolic murmur - GI/Abdominal GI/Abdominal exam: Present: normal bowel sounds, soft. Absent: ascites, distended, mass, organomegaly, tenderness - Extremities Exam Extremities exam: Present: normal inspection, full ROM - Back Exam Back exam: Present: normal inspection - Neurological Exam Neurological exam: Present: altered - Psychiatric Psychiatric exam: Present: other - Skin Skin exam: Present: normal color, warm, dry Results - Labs CBC & BMP: 01/16/17 03:30 01/16/17 03:30 Lab Results: I have reviewed the past 24 hour labs <Peyman Merino - Last Filed: 01/16/17 19:15> Exam (Progress Note) - Constitutional Vitals: Period Temp Pulse Resp BP Sys/Parker Pulse Ox Last 24 Hr 97.3 F-98.5 F 72-85 10-21 84-136/45-71 97-100 Results - Labs CBC & BMP: 01/16/17 03:30 01/16/17 03:30
--- NOTE | 2017-01-16 10:04 | Cardiology Progress Note ---
<Paula Marcus E - Last Filed: 01/16/17 10:48> Assessment and Plan - Time spent with patient Time spent with patient: Less than 30 minutes (1) Paroxysmal atrial fibrillation Status: Acute Assessment and plan: See plan of care listed below. Current Visit: Yes (2) Necrotizing fasciitis Status: Acute Assessment and plan: See plan of care listed below. Current Visit: Yes (3) DM type 2 (diabetes mellitus, type 2) Status: Chronic Assessment and plan: See plan of care listed below. Current Visit: Yes (4) Severe sepsis Status: Acute Assessment and plan: See plan of care listed below. Current Visit: Yes (5) Acute renal failure Status: Resolved Assessment and plan: See plan of care listed below. Current Visit: No (6) Deaf-mutism Status: Chronic Assessment and plan: See plan of care listed below. Current Visit: Yes Cardiology - PN: Subj Interval history: Cold Roll Operator: new to Dr. Webster SUMMARY: Ms. Mckeon is a 61 year old female with a history of type 2 diabetes mellitus and obesity who was admitted with septic shock, acute renal failure, and new onset rapid atrial fibrillation. We were consulted to see her and aid in management of her A. fib. She has had 2 extensive debridements of the left lower abdominal wall and pelvic area for necrotizing fasciitis. She has been on IV Cardizem and subsequently converted to normal sinus rhythm. She is no longer requiring vasopressors. She is making good urine. She had an echocardiogram which showed ejection fraction 60% with dilated left atrium and moderate TR with PA pressure 55. She is being treated with broad-spectrum antibiotics. She remains on mechanical ventilation. JANUARY 16, 2017 UPDATE: Ms. Mckeon is extubated this morning upon exam. She is resting comfortably and is arousable to tactile stimuli. She remains in sinus rhythm with controlled rate. She has been intolerant to tube feedings, therefore , we have not started her on oral yogesh blocking agents at this time. She was started on IV lopressor to help maintain rate/rhythm; however, she has had some hypotension and this has had to be held on numerous occasions. She is receiving TPN. Will continue to monitor. ASSESSMENT/PLAN: 1. PAROXYSMAL ATRIAL FIBRILLATION - Converted with IV Cardizem. She is currently not tolerating much via NGT and is on TPN. We will continue to use IV Cardizem if she goes back into AFRVR. She has been rate controlled but has been unable to tolerate IV lopressor due to intermittent hypotension and HR<70. She has been started on anticoagulation with Lovenox. Once she is tolerating PO, will transition to oral cardizem and oral anticoagulation. H&H is stable at 8.5 and 27.6. 2. NECROTIZING FASCIITIS - General surgery is following. She has had 2 surgical debridements and continues on broad spectrum antibiotics. 3. TYPE 2 DIABETES MELLITUS - She is on Accu-Cheks and sliding scale insulin. 4. SEPSIS - No longer requiring vasopressors. She is getting broad-spectrum antibiotics and IV fluids. 5. ACUTE RENAL FAILURE - Much improved with creatinine 0.6. Will monitor BMP. 6. HISTORY OF HEARING LOSS - Patient is deaf. Once patient is more alert, communication may be difficult. Exam (Progress Note) - Constitutional Vitals: Period Temp Pulse Resp BP Sys/Parker Pulse Ox Last 24 Hr 97.3 F-98.5 F 73-95 10-21 88-136/36-71 96-100 Exam: General appearance: Overweight, no acute distress. Head exam: Present: normal inspection, normocephalic, atraumatic. Absent: hematoma, laceration Eye exam: Present: EOMI. Absent: conjunctival injection, nystagmus, periorbital swelling, scleral icterus, laceration to eyelids Pupils: Present: PERRL. Absent: constricted, dilated, fixed, irregular, unequal ENT exam: Present: normal external ear exam, NGT in place to LIWS. Neck exam: Present: normal inspection. Absent: lymphadenopathy, meningismus, tenderness, thyromegaly Respiratory exam: Present: Coarse breath sounds anteriorly, patient has been extubated this morning. Now on O2 via facemask. Absent: accessory muscle use Cardiovascular exam: Present: regular rate and rhythm. Absent: gallop, rubs, murmur GI/Abdominal exam: Present: normal bowel sounds, soft. Wound vac to left lower abdomen, left upper thigh with surrounding erythema. Absent: distended, firm, guarding, hernia, mass, rebound. Extremities exam: Present: normal inspection, normal capillary refill. Upper extremity pulses 2+. Lower extremity pulses 2+. Absent: calf tenderness, edema Back exam: Present: Unable to examine due to habitus. Neurological exam: Present: Patient is deaf which limits communication. She does move all extremities spontaneously. No resting or essential tremor. Psychiatric exam: Present: Unable to adequately assess due to patient being sedated having recently received pain medication. Skin exam: Present: normal color, warm, dry, intact. Absent: cyanosis, diaphoretic, rash, urticaria Result/EKG - Labs CBC & BMP: 01/16/17 03:30 01/16/17 03:30 Lab Results: I have reviewed the past 24 hour labs Labs: Laboratory Results - last 24 hr 01/15/17 01/15/17 01/16/17 11:24 17:31 00:16 WBC RBC Hgb Hct MCV MCH MCHC RDW Plt Count MPV Neut % (Auto) Lymph % (Auto) Haakon % (Auto) Eos % (Auto) Baso % (Auto) Neut # (Auto) Lymph # (Auto) Haakon # (Auto) Eos # (Auto) Baso # (Auto) Total Counted Immature Gran % Nucleated RBC % Immature Gran # Segmented Neutrophils Band Neutrophils Lymphocytes Monocytes Eosinophils Basophils Nucleated RBCs # Platelet Estimate Giant Platelets Immature Plt Fraction Hypochromasia Microcytosis Sodium Potassium Chloride Carbon Dioxide Anion Gap BUN Creatinine GFR Calculation BUN/Creatinine Ratio Glucose POC Glucose 142 H 122 H 171 H Calculated Osmolality Calcium Magnesium 01/16/17 01/16/17 01/16/17 03:30 03:30 06:15 WBC 8.2 RBC 2.95 L Hgb 8.5 L Hct 27.6 L MCV 93.6 MCH 29 MCHC 30.8 L RDW 15.0 Plt Count 276 MPV 9.9 Neut % (Auto) 68.2 Lymph % (Auto) 15.6 L Haakon % (Auto) 10.2 Eos % (Auto) 4.1 Baso % (Auto) 0.2 Neut # (Auto) 5.6 Lymph # (Auto) 1.3 L Haakon # (Auto) 0.8 Eos # (Auto) 0.3 Baso # (Auto) 0.0 Total Counted 100 Immature Gran % 1.7 Nucleated RBC % 0.0 Immature Gran # 0.14 Segmented Neutrophils 70 Band Neutrophils 3 Lymphocytes 12 L Monocytes 7 Eosinophils 7 Basophils 1.0 H Nucleated RBCs # 0.00 Platelet Estimate Adequate Giant Platelets Few Immature Plt Fraction 0.0 Hypochromasia 1+ Microcytosis 1+ Sodium 143 Potassium 4.2 Chloride 112 H Carbon Dioxide 25 Anion Gap 10.2 BUN 11 Creatinine 0.60 GFR Calculation 125 BUN/Creatinine Ratio 18.00 Glucose 175 H POC Glucose 168 H Calculated Osmolality 287.0 Calcium 7.5 L Magnesium 1.8 - EKG EKG results: interpreted by me, sinus rhythm Quality Measures - VTE Contraindication to Pharmacological VTE Prophylaxis: High Risk of Bleeding <Colleen San - Last Filed: 01/16/17 16:14> Cardiology - PN: Subj Interval history: I have personally interviewed and evaluated the patient, reviewed the chart and discussed medical decision-making with practitioner Amrit. I have read this note and agree with her documentation here in. While she is hypotensive, if necessary digoxin can be used if she goes back into A. fib. Exam (Progress Note) - Constitutional Vitals: Period Temp Pulse Resp BP Sys/Parker Pulse Ox Last 24 Hr 97.3 F-98.5 F 73-91 10-21 88-136/43-71 96-100 Result/EKG - Labs CBC & BMP: 01/16/17 03:30 01/16/17 03:30 Labs: Laboratory Results - last 24 hr 01/15/17 01/16/17 01/16/17 17:31 00:16 03:30 WBC 8.2 RBC 2.95 L Hgb 8.5 L Hct 27.6 L MCV 93.6 MCH 29 MCHC 30.8 L RDW 15.0 Plt Count 276 MPV 9.9 Neut % (Auto) 68.2 Lymph % (Auto) 15.6 L Haakon % (Auto) 10.2 Eos % (Auto) 4.1 Baso % (Auto) 0.2 Neut # (Auto) 5.6 Lymph # (Auto) 1.3 L Haakon # (Auto) 0.8 Eos # (Auto) 0.3 Baso # (Auto) 0.0 Total Counted 100 Immature Gran % 1.7 Nucleated RBC % 0.0 Immature Gran # 0.14 Segmented Neutrophils 70 Band Neutrophils 3 Lymphocytes 12 L Monocytes 7 Eosinophils 7 Basophils 1.0 H Nucleated RBCs # 0.00 Platelet Estimate Adequate Giant Platelets Few Immature Plt Fraction 0.0 Hypochromasia 1+ Microcytosis 1+ Sodium Potassium Chloride Carbon Dioxide Anion Gap BUN Creatinine GFR Calculation BUN/Creatinine Ratio Glucose POC Glucose 122 H 171 H Calculated Osmolality Calcium Magnesium 01/16/17 01/16/17 01/16/17 03:30 06:15 11:30 WBC RBC Hgb Hct MCV MCH MCHC RDW Plt Count MPV Neut % (Auto) Lymph % (Auto) Haakon % (Auto) Eos % (Auto) Baso % (Auto) Neut # (Auto) Lymph # (Auto) Haakon # (Auto) Eos # (Auto) Baso # (Auto) Total Counted Immature Gran % Nucleated RBC % Immature Gran # Segmented Neutrophils Band Neutrophils Lymphocytes Monocytes Eosinophils Basophils Nucleated RBCs # Platelet Estimate Giant Platelets Immature Plt Fraction Hypochromasia Microcytosis Sodium 143 Potassium 4.2 Chloride 112 H Carbon Dioxide 25 Anion Gap 10.2 BUN 11 Creatinine 0.60 GFR Calculation 125 BUN/Creatinine Ratio 18.00 Glucose 175 H POC Glucose 168 H 185 H Calculated Osmolality 287.0 Calcium 7.5 L Magnesium 1.8
[2017-01-16] MEDS: ENOXAPARIN 40 MG/0.4 ML SYRINGE SUBCUT SCH (10:48)
--- NOTE | 2017-01-16 11:46 | Infectious Disease Progress ---
Assessment and Plan (1) Septic shock Status: Acute Assessment and plan: This was due to necrotizing fasciitis, resolved.. Current Visit: Yes (2) Acute renal failure Status: Resolved Assessment and plan: Resolved Current Visit: No (3) Atrial fibrillation with rapid ventricular response Status: Resolved Current Visit: No (4) DM type 2 (diabetes mellitus, type 2) Status: Chronic Assessment and plan: Newly diagnosed with A1c of 11.7%. This is likely predisposing factor for the necrotizing fasciitis. Current Visit: Yes (5) Necrotizing fasciitis Status: Acute Assessment and plan: Extensive infection, necrosis involving the left groin/perineal area, with MRSA and anaerobes isolated. There is still a bit of necrosis and she is going back to the operating room today. Recommendations: Continue clindamycin [for the MRSA and any anaerobes] and aggressive wound care. Plan is to treat with antibiotics for 10-14 days depending on the appearance of the wound. Current Visit: Yes Infectious Disease - PN: Subj Interval history: Patient doing fair she remains comfortable off the vent. She has not fever. She had wound VAC removed today and wound is examined by Dr. Latrice Murillo and felt to have some more necrotic tissue so she is going by for debridement today. Infectious Disease Exam (PN) - Constitutional Vitals: Temp Pulse Resp BP Pulse Ox 97.3 F L 85 12 92/48 100 01/16/17 04:00 01/16/17 06:00 01/16/17 11:00 01/16/17 05:00 01/16/17 06:00 General appearance: no acute distress, over weight Exam: General appearance: Drowsy but arousable and relatively comfortable - Eye Eye exam: Present: EOMI. no icterus Pupils: Present: DEBBIE - Respiratory Respiratory exam: vesicular BS, no crepitations or wheezes - Cardiovascular Cardiovascular exam: regular rate and rhythm, no murmurs - GI/Abdominal GI/Abdominal exam: normal bowel sounds, soft, non-tender, no organomegaly or mass - Wounds packed - Extremities Exam Extremities exam: Mild bilateral lower extremity edema - Skin Skin exam: no rash Results - Labs CBC & BMP: 01/16/17 03:30 01/16/17 03:30 Lab Results: I have reviewed the past 24 hour labs (Stool 2 negative for C. difficile) Quality Measures - VTE Contraindication to Pharmacological VTE Prophylaxis: High Risk of Bleeding
--- NOTE | 2017-01-16 12:21 | Hospitalist Progress Note ---
Assessment and Plan (1) Acute respiratory failure Status: Acute Assessment and plan: Successfully extubated yesterday. She will be reintubated for surgery. Current Visit: Yes (2) Necrotizing fasciitis Status: Acute Assessment and plan: Continue clindamycin for Bacteroides and MRSA. Continue wound VAC and IV antibiotics. Dr. Ulloa will follow Current Visit: Yes (3) Severe sepsis Status: Acute Assessment and plan: Pressors required at this point. Severe sepsis has resolved Current Visit: Yes (4) Acute renal failure Status: Resolved Assessment and plan: Resolved Current Visit: No (5) Atrial fibrillation with rapid ventricular response Status: Resolved Assessment and plan: Currently in sinus rhythm Current Visit: No (6) DM type 2 (diabetes mellitus, type 2) Status: Chronic Assessment and plan: Blood sugars fairly well controlled on Lantus 10 units sq daily Current Visit: Yes (7) Deaf-mutism Status: Chronic Current Visit: Yes (8) Ileus Status: Acute Assessment and plan: cont reglan, no evidence of obstruction Current Visit: Yes Hospitalist: Subjective Interval history: Discussed case with Dr. Saba the third and he would like to take her back to surgery today. She is currently on TPN at 40. She cannot tolerate any oral tube feedings. She is on a 50% facemask. Dr. Latrice Murillo and I have seen her wound and she does have areas of necrosis that he would like to debride more. I have updated her boyfriend of many years who was in the waiting room. She will have to be reintubated for surgery and probably remain intubated again for several days. Transferred to [facility] on hold. Exam - Constitutional Vitals: Period Temp Pulse Resp BP Sys/Parker Pulse Ox Last 24 Hr 97.3 F-98.5 F 73-91 10-21 88-136/43-71 96-100 Exam: Heart Rate-[RRR] Lungs-[CTAB GI-[+bs soft, very tender Ext-[chronic lymph edema] Neuro sedated and intubated on the vent psych unable to assess General [no acute distress] skin some areas of necrosis Results - Labs CBC & BMP: 01/16/17 03:30 01/16/17 03:30 Lab Results: I have reviewed the past 24 hour labs Labs: 2 stools negative for C. difficile Quality Measures - VTE Contraindication to Pharmacological VTE Prophylaxis: High Risk of Bleeding
--- NOTE | 2017-01-16 12:30 | EKG Report ---
Stationary ECG Study [facility] Test Date: 01/16/2017 12:29:07 PM Pat Name: BRINA LAKHANI Department: Room: 122 Gender: F Director Of Slot Operations: : 1955 Requested by: Gerardo Ellsworth Order Number: [id number] Reading MD: TYESHA DE LA TORRE Intervals [place] Rate: 71 P: 68 TN: 144 QRS: 57 QRSD: 102 T: 51 QT: 362 QTc: 385 Interpretive Statements SINUS RHYTHM Electronically Signed On 01-16-17 14:15:55 CDT by TYESHA DE LA TORRE [email or web address]
[2017-01-16] MEDS ORDERED: BUPIVACAINE 0.25% 50 ML VIAL ONE (12:47)
[2017-01-16] MEDS ORDERED: LIDOCAINE 1%/EPI INJ 20 ML VIAL ONE (12:47)
[2017-01-16] MEDS ORDERED: PROPOFOL 200 MG/20 ML VIAL IV ONE (13:50)
[2017-01-16] MEDS ORDERED: LIDOCAINE 2% 5 ML VIAL ONE (13:50)
--- NOTE | 2017-01-16 15:06 | Anesthesia Post-Op ---
Anesthesia Post OP - Post Ansesthetic Evaluation Patient seen in post op: Yes Resp: within normal limits CV: within normal limits Mental: within normal limits Temp: within normal limits [id number]: within normal limits Nausea and Vomiting: within normal limits Pain: within normal limits
[2017-01-16] MEDS ORDERED: fentaNYL 100 MCG/2 ML VIAL ONE (15:22)
[2017-01-16] MEDS ORDERED: MIDAZOLAM 2 MG/2 ML VIAL ONE (15:22)
[2017-01-16] MEDS ORDERED: KETAMINE 500 MG/10 ML VIAL ONE (15:23)
[2017-01-16] MEDS: FAT EMULSION 20% 250 ML IV SCH (15:47)
[2017-01-16] MEDS: PROPOFOL 1,000 MG/100 ML BOTTLE IV SCH (16:19)
[2017-01-16] MEDS ORDERED: DEXTROSE 10% 1,000 ML IV PRN (17:00)
[2017-01-16] MEDS ORDERED: TRACE ELEMENTS (5) 1 ML, MULTIVITAMIN INJ 10 ML in AMINO ACIDS/DEXT/LYTES 5-15% 2,000 ML IV SCH (17:00)
[2017-01-17] MEDS: CLINDAMYCIN INJ 900 MG in PREMIX 1 EACH IV SCH ×3 (01:05→16:43)
[2017-01-17] MEDS: INSULIN REGULAR 100 UNIT/ML SUBCUT SCH ×4 (01:06→18:21)
[2017-01-17] MEDS: METOPROLOL TARTRATE 5 MG/5 ML VIAL IV SCH ×4 (01:06→19:18)
[2017-01-17] MEDS: METOCLOPRAMIDE 10 MG/2 ML VIAL IV SCH ×4 (01:07→18:21)
[2017-01-17] MEDS: HYDROmorphone 2 MG/1 ML VIAL IV PRN ×4 (01:07→21:02)
[2017-01-17 04:28] LABS: Basophils % 0.4 % (0.0-0.8); Eosinophils # 0.4 10*3/uL (0.0-0.87); Eosinophils % 4.2 % (0.00-10.9); Hematocrit 27.4 VOL% (35.7-47.0); Hemoglobin 8.5 GM/DL (12.0-16.0); Immature Granulocytes % 1.1 %; Immature Granulocytes Absolute 0.09 #; Lymphocytes # 1.2 10*3/uL (1.4-4.0); Lymphocytes % 14.3 % (21.3-54.2); Mean Corpuscular Hemoglobin 29 PG (27-34); Mean Corpuscular Volume 93.2 FL (87-102); Mean Platelet Volume 9.9 FL (9.6-12.0); Monocytes # 0.7 10*3/uL (0.11-0.8); Monocytes % 8.2 % (1.7-12.7); Neutrophils % 71.8 % (38.7-73.9); Platelet Count 279 T/CUMM (130-400); Red Blood Count 2.94 MC/CUMM (3.8-5.5); Red Cell Distribution Width 14.9 % (9.3-17.3); White Blood Count 8.3 T/CUMM (4-12)
[2017-01-17 05:08] LABS: Calcium 7.3 MG/DL (8.5-10.1); Magnesium 1.8 MG/DL (1.8-2.4); Osmolality,Calculated 287.1 MOS/KG (273-304); Potassium 4.2 MMOL/L (3.5-5.1)
[2017-01-17 05:14] LABS: Platelet Estimate Normal
[2017-01-17 05:22] LABS: Phosphorous 4.4 MG/DL (2.5-4.9)
--- NOTE | 2017-01-17 08:00 | Pulmonology Progress Note ---
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 She has had extensive debridement and has a large open wound. She was septic but is doing better now. She is a poorly controlled diabetic. She went back to surgery Saturday and had further debridement. She had a fairly good weekend and was stable on the ventilator. She is not on any pressors now. Her renal function is back to normal. She has excellent oxygenation on the ventilator. She did grow out MRSA along with anaerobes. Yesterday she did well on CPAP and was extubated. She is breathing comfortably on low-flow oxygen. Yesterday she did go for more debridement and did well. She does have some discomfort and is getting pain medicines. Her breathing is doing okay now. She has stable vital signs. She will continue with her extensive wound care. Exam (Progress Note) - Constitutional Vitals: Period Temp Pulse Resp BP Sys/Parker Pulse Ox Last 24 Hr 97.3 F-97.8 F 66-83 10-20 84-151/40-86 98-100 Exam: General appearance: no acute distress (Patient looks reasonably comfortable on low-flow oxygen now. She responds easily.) - Head Head exam: Present: normal inspection - Eye Eye exam: Present: EOMI. Absent: scleral icterus Pupils: Present: DEBBIE - ENT ENT exam: Present: Unremarkable - Neck Neck exam: Present: normal inspection - Respiratory Respiratory exam: Present: clear to auscultation bilaterally, she has good breath sounds bilaterally. She does not have any rales or wheezing. - Cardiovascular Cardiovascular exam: Present: She has a regular rhythm now without loud murmur. - GI/Abdominal GI/Abdominal exam: Present: hypoactive bowel sounds, soft. Absent: organomegaly , tenderness. Her lower abdomen and perineum is wrapped - Extremities Exam Extremities exam: Absent: calf tenderness, edema - Neurological Exam Neurological exam: Present: She moves everything but is very sleepy now. - Psychiatric Psychiatric exam: Absent: anxious - Skin Skin exam: Present: warm, dry Results - Labs CBC & BMP: 01/17/17 03:48 01/17/17 03:48 Assessment and Plan (1) Necrotizing fasciitis Status: Acute Assessment and plan: Patient has extensive necrotizing fasciitis and has had significant surgical debridement. She had more debridement yesterday and did well with surgery. She will continue with wound care. Current Visit: Yes (2) Severe sepsis Status: Resolved Assessment and plan: She is getting broad-spectrum antibiotics and fluids. She is hemodynamically more stable and is starting to make better urine output. She is off pressors now and much more stable. She will continue with her antibiotics. Current Visit: No (3) DM type 2 (diabetes mellitus, type 2) Status: Chronic Assessment and plan: The patient did not know she was a diabetic to last week. Her glucose is 213 now. Current Visit: Yes (4) Deaf-mutism Status: Chronic Assessment and plan: Communication may be difficult. He is resting comfortably off the ventilator now. Current Visit: Yes (5) On mechanically assisted ventilation Status: Resolved Assessment and plan: She was extubated yesterday and is breathing comfortably. She is not having any respiratory distress now. She continues to do well off the ventilator and not have any breathing troubles. Current Visit: No
[2017-01-17] MEDS: INSULIN GLARGINE 100 UNIT/ML SUBCUT SCH (08:24)
[2017-01-17] MEDS: PANTOPRAZOLE 40 MG VIAL IV SCH (08:24)
--- NOTE | 2017-01-17 09:07 | Cardiology Progress Note ---
<Paula Marcus E - Last Filed: 01/17/17 11:18> Assessment and Plan - Time spent with patient Time spent with patient: Less than 30 minutes (1) Paroxysmal atrial fibrillation Status: Acute Assessment and plan: See plan of care listed below. Current Visit: Yes (2) Necrotizing fasciitis Status: Acute Assessment and plan: See plan of care listed below. Current Visit: Yes (3) DM type 2 (diabetes mellitus, type 2) Status: Chronic Assessment and plan: See plan of care listed below. Current Visit: Yes (4) Severe sepsis Status: Resolved Assessment and plan: See plan of care listed below. Current Visit: No (5) Acute renal failure Status: Resolved Assessment and plan: See plan of care listed below. Current Visit: No (6) Deaf-mutism Status: Chronic Assessment and plan: See plan of care listed below. 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 Mckeon is a 61 year old female with a history of type 2 diabetes mellitus and obesity who was admitted with septic shock, acute renal failure, and new onset rapid atrial fibrillation. We were consulted to see her and aid in management of her A. fib. She has had 2 extensive debridements of the left lower abdominal wall and pelvic area for necrotizing fasciitis. She has been on IV Cardizem and subsequently converted to normal sinus rhythm. She is no longer requiring vasopressors. She is making good urine. She had an echocardiogram which showed ejection fraction 60% with dilated left atrium and moderate TR with PA pressure 55. She is being treated with broad-spectrum antibiotics. She remains on mechanical ventilation. JANUARY 17, 2017 UPDATE: Ms. Mckeon is resting comfortably and is arousable to tactile stimuli. She remains in sinus rhythm with controlled rate. She has been intolerant to tube feedings, therefore, we have not started her on oral yogesh blocking agents at this time. She was started on IV lopressor to help maintain rate/rhythm; however, she has had some hypotension and this has had to be held on numerous occasions. She is receiving TPN. Will continue to monitor. ASSESSMENT/PLAN: 1. PAROXYSMAL ATRIAL FIBRILLATION - Converted with IV Cardizem. She is currently not tolerating much via NGT and is on TPN. If necessary, we can use digoxin to help control her HR if she goes back into afib. She has been rate controlled but has been unable to tolerate IV lopressor due to intermittent hypotension and HR<70. She has been started on anticoagulation with Lovenox. Once she is tolerating PO, will transition to oral cardizem and oral anticoagulation. H&H is stable at 8.5 and 27.4. 2. NECROTIZING FASCIITIS - General surgery is following. She has had 2 surgical debridements and continues on broad spectrum antibiotics. 3. TYPE 2 DIABETES MELLITUS - She is on Accu-Cheks and sliding scale insulin. 4. SEPSIS - No longer requiring vasopressors. She is getting broad-spectrum antibiotics and IV fluids. 5. ACUTE RENAL FAILURE - Much improved with creatinine 0.6. Will monitor BMP. 6. HISTORY OF HEARING LOSS - Patient is deaf. Communication is a little difficulty. Exam (Progress Note) - Constitutional Vitals: Period Temp Pulse Resp BP Sys/Parker Pulse Ox Last 24 Hr 97.3 F-97.8 F 66-83 10-20 84-151/40-86 98-100 Exam: General appearance: Overweight, no acute distress. Head exam: Present: normal inspection, normocephalic, atraumatic. Absent: hematoma, laceration Eye exam: Present: EOMI. Absent: conjunctival injection, nystagmus, periorbital swelling, scleral icterus, laceration to eyelids Pupils: Present: PERRL. Absent: constricted, dilated, fixed, irregular, unequal ENT exam: Present: normal external ear exam, NGT in place and clamped. Neck exam: Present: normal inspection. Absent: lymphadenopathy, meningismus, tenderness, thyromegaly Respiratory exam: Present: Coarse breath sounds anteriorly. On O2 via facemask. Absent: accessory muscle use Cardiovascular exam: Present: regular rate and rhythm. Absent: gallop, rubs, murmur GI/Abdominal exam: Present: normal bowel sounds, soft. Wound vac to left lower abdomen, left upper thigh with surrounding erythema. Absent: distended, firm, guarding, hernia, mass, rebound. Extremities exam: Present: normal inspection, normal capillary refill. Upper extremity pulses 2+. Lower extremity pulses 2+. Absent: calf tenderness, edema Back exam: Present: Unable to examine due to habitus. Neurological exam: Present: Patient is deaf which limits communication. She does move all extremities spontaneously. When she's awake, she will follow some simple commands. No resting or essential tremor. Psychiatric exam: Present: Unable to adequately assess due to patient being sedated having recently received pain medication. Skin exam: Present: normal color, warm, dry, intact. Absent: cyanosis, diaphoretic, rash, urticaria Result/EKG - Labs CBC & BMP: 01/17/17 03:48 01/17/17 03:48 Lab Results: I have reviewed the past 24 hour labs Labs: Laboratory Results - last 24 hr 01/16/17 01/16/17 01/17/17 11:30 17:59 00:54 WBC RBC Hgb Hct MCV MCH MCHC RDW Plt Count MPV Neut % (Auto) Lymph % (Auto) [place] % (Auto) Eos % (Auto) Baso % (Auto) Neut # (Auto) Lymph # (Auto) [place] # (Auto) Eos # (Auto) Baso # (Auto) Immature Gran % Nucleated RBC % Immature Gran # Nucleated RBCs # Platelet Estimate Immature Plt Fraction Sodium Potassium Chloride Carbon Dioxide Anion Gap BUN Creatinine GFR Calculation BUN/Creatinine Ratio Glucose POC Glucose 185 H 198 H 228 H Calculated Osmolality Calcium Phosphorus Magnesium Prealbumin 01/17/17 01/17/17 01/17/17 03:48 03:48 03:48 WBC 8.3 RBC 2.94 L Hgb 8.5 L Hct 27.4 L MCV 93.2 MCH 29 MCHC 31.0 L RDW 14.9 Plt Count 279 MPV 9.9 Neut % (Auto) 71.8 Lymph % (Auto) 14.3 L [place] % (Auto) 8.2 Eos % (Auto) 4.2 Baso % (Auto) 0.4 Neut # (Auto) 6.0 Lymph # (Auto) 1.2 L [place] # (Auto) 0.7 Eos # (Auto) 0.4 Baso # (Auto) 0.0 Immature Gran % 1.1 Nucleated RBC % 0.0 Immature Gran # 0.09 Nucleated RBCs # 0.00 Platelet Estimate Normal Immature Plt Fraction 0.0 Sodium 142 Potassium 4.2 Chloride 112 H Carbon Dioxide 26 Anion Gap 8.2 BUN 12 Creatinine 0.60 GFR Calculation 2203 BUN/Creatinine Ratio 20.00 Glucose 193 H POC Glucose Calculated Osmolality 287.1 Calcium 7.3 L Phosphorus 4.4 Magnesium 1.8 Prealbumin 19.0 L 01/17/17 06:11 WBC RBC Hgb Hct MCV MCH MCHC RDW Plt Count MPV Neut % (Auto) Lymph % (Auto) [place] % (Auto) Eos % (Auto) Baso % (Auto) Neut # (Auto) Lymph # (Auto) [place] # (Auto) Eos # (Auto) Baso # (Auto) Immature Gran % Nucleated RBC % Immature Gran # Nucleated RBCs # Platelet Estimate Immature Plt Fraction Sodium Potassium Chloride Carbon Dioxide Anion Gap BUN Creatinine GFR Calculation BUN/Creatinine Ratio Glucose POC Glucose 213 H Calculated Osmolality Calcium Phosphorus Magnesium Prealbumin - EKG EKG results: interpreted by me, sinus rhythm Quality Measures - VTE Contraindication to Pharmacological VTE Prophylaxis: High Risk of Bleeding <Colleen San - Last Filed: 01/17/17 17:19> Cardiology - PN: Subj Interval history: I have personally interviewed and evaluated the patient, reviewed the chart and discussed medical decision-making with practitioner Amrit. I have read this note and agree with her documentation here in. Exam (Progress Note) - Constitutional Vitals: Period Temp Pulse Resp BP Sys/Parker Pulse Ox Last 24 Hr 97.3 F-97.8 F 66-83 9-20 84-151/40-86 94-100 Result/EKG - Labs CBC & BMP: 01/17/17 03:48 01/17/17 03:48 Labs: Laboratory Results - last 24 hr 01/16/17 01/17/17 01/17/17 17:59 00:54 03:48 WBC 8.3 RBC 2.94 L Hgb 8.5 L Hct 27.4 L MCV 93.2 MCH 29 MCHC 31.0 L RDW 14.9 Plt Count 279 MPV 9.9 Neut % (Auto) 71.8 Lymph % (Auto) 14.3 L [place] % (Auto) 8.2 Eos % (Auto) 4.2 Baso % (Auto) 0.4 Neut # (Auto) 6.0 Lymph # (Auto) 1.2 L [place] # (Auto) 0.7 Eos # (Auto) 0.4 Baso # (Auto) 0.0 Immature Gran % 1.1 Nucleated RBC % 0.0 Immature Gran # 0.09 Nucleated RBCs # 0.00 Platelet Estimate Normal Immature Plt Fraction 0.0 Sodium Potassium Chloride Carbon Dioxide Anion Gap BUN Creatinine GFR Calculation BUN/Creatinine Ratio Glucose POC Glucose 198 H 228 H Calculated Osmolality Calcium Phosphorus Magnesium Prealbumin 08/03/17 08/03/17 08/03/17 03:48 03:48 06:11 WBC RBC Hgb Hct MCV MCH MCHC RDW Plt Count MPV Neut % (Auto) Lymph % (Auto) [place] % (Auto) Eos % (Auto) Baso % (Auto) Neut # (Auto) Lymph # (Auto) [place] # (Auto) Eos # (Auto) Baso # (Auto) Immature Gran % Nucleated RBC % Immature Gran # Nucleated RBCs # Platelet Estimate Immature Plt Fraction Sodium 142 Potassium 4.2 Chloride 112 H Carbon Dioxide 26 Anion Gap 8.2 BUN 12 Creatinine 0.60 GFR Calculation 2203 BUN/Creatinine Ratio 20.00 Glucose 193 H POC Glucose 213 H Calculated Osmolality 287.1 Calcium 7.3 L Phosphorus 4.4 Magnesium 1.8 Prealbumin 19.0 L 01/17/17 11:44 WBC RBC Hgb Hct MCV MCH MCHC RDW Plt Count MPV Neut % (Auto) Lymph % (Auto) [place] % (Auto) Eos % (Auto) Baso % (Auto) Neut # (Auto) Lymph # (Auto) [place] # (Auto) Eos # (Auto) Baso # (Auto) Immature Gran % Nucleated RBC % Immature Gran # Nucleated RBCs # Platelet Estimate Immature Plt Fraction Sodium Potassium Chloride Carbon Dioxide Anion Gap BUN Creatinine GFR Calculation BUN/Creatinine Ratio Glucose POC Glucose 209 H Calculated Osmolality Calcium Phosphorus Magnesium Prealbumin
[2017-01-17] MEDS ORDERED: fentaNYL 25 MCG/HR PATCH TRANSDERM SCH (09:30)
--- NOTE | 2017-01-17 09:51 | Gastrointestinal Progress Note ---
<Monica Rocha Venancio - Last Filed: 01/17/17 09:47> Assessment and Plan (1) Ileus Status: Acute Assessment and plan: 01/17-NG is clamped, continue with TPN. Bowel sounds slightly hypoactive, continued BMS output. No other changes at this time. Plan an addendum to follow by Dr. Merino. 01/16-NG tube remains clamped. Tube feedings on hold. Good bowel sounds and continued BMS output. Continue to monitor at this time. Plan an addendum to follow by Dr. Merino. 01/15-Recent onset of high residuals with tube feedings with CT of abdomen w/o contrast showing no evidence of bowel obstruction, nondilated bowel without other acute findings. Hx of diabetes, not well controlled. KUB and ultrasound results noted as below. BMS in place with watery stools, negative for CDF 1. Plan an addendum to follow by Dr. Merino. Current Visit: Yes Gastroenterology - PN: Subj Interval history: CC: Ileus Patient is seen, however difficult to arouse to stimuli. NG remains clamped at this time. She continues with her TPN as well. Tube feedings are on hold. Bowel sounds continued however slightly hypoactive this morning. Abdomen is soft, nontender. She is noted to have returned yesterday for further debridement and was initially on the ventilator postprocedure however she was fairly quickly extubated and is more stable from a respiratory standpoint. ROS: No acute distress noted at present time. Exam (Progress Note) - Constitutional Vitals: Period Temp Pulse Resp BP Sys/Parker Pulse Ox Last 24 Hr 97.3 F-97.8 F 66-83 10-20 84-151/40-86 98-100 General appearance: no acute distress, over weight - Head Head exam: Present: normal inspection, normocephalic - Eye Eye exam: Present: other (Lids and conjunctive are unremarkable). Absent: scleral icterus - ENT ENT exam: Present: normal exam, normal oropharynx - Neck Neck exam: Present: normal inspection - Respiratory Respiratory exam: Present: clear to auscultation bilaterally. Absent: rales, rhonchi, wheezes - Cardiovascular Cardiovascular exam: Present: regular rate and rhythm. Absent: diastolic murmur , JVD, systolic murmur - GI/Abdominal GI/Abdominal exam: Present: normal bowel sounds, soft. Absent: ascites, distended, mass, organomegaly, tenderness - Extremities Exam Extremities exam: Present: normal inspection, full ROM - Back Exam Back exam: Present: normal inspection - Neurological Exam Neurological exam: Present: altered - Psychiatric Psychiatric exam: Present: other - Skin Skin exam: Present: normal color, warm, dry Results - Labs CBC & BMP: 01/17/17 03:48 01/17/17 03:48 Lab Results: I have reviewed the past 24 hour labs <Peyman Merino - Last Filed: 01/17/17 18:20> Exam (Progress Note) - Constitutional Vitals: Period Temp Pulse Resp BP Sys/Parker Pulse Ox Last 24 Hr 97.3 F-97.8 F 66-83 9-20 89-151/40-86 94-100 Results - Labs CBC & BMP: 01/17/17 03:48 01/17/17 03:48
[2017-01-17] MEDS: ENOXAPARIN 40 MG/0.4 ML SYRINGE SUBCUT SCH (11:27)
[2017-01-17] MEDS: FAT EMULSION 20% 250 ML IV SCH (14:00)
--- NOTE | 2017-01-17 14:54 | Hospitalist Progress Note ---
Assessment and Plan (1) Acute respiratory failure Status: Acute Assessment and plan: Stable, only requiring 2 L, duoneb tid Current Visit: Yes (2) Necrotizing fasciitis Status: Acute Assessment and plan: s/p debridement times 2, Continue clindamycin for Bacteroides and MRSA. Wound VAC to be placed in a.m. Current Visit: Yes (3) Severe sepsis Status: Resolved Assessment and plan: resolved Current Visit: No (4) Acute renal failure Status: Resolved Assessment and plan: Resolved Current Visit: No (5) Atrial fibrillation with rapid ventricular response Status: Resolved Assessment and plan: Currently in sinus rhythm Current Visit: No (6) DM type 2 (diabetes mellitus, type 2) Status: Chronic Assessment and plan: Blood sugars too high, currently on tpn, increase lantus 15 Current Visit: Yes (7) Deaf-mutism Status: Chronic Current Visit: Yes (8) Ileus Status: Acute Assessment and plan: cont reglan, Dr Merino recommends trial of tube feeding again, speech failed Current Visit: Yes (9) Chronic anemia Status: Acute Assessment and plan: cont protonix Current Visit: Yes Hospitalist: Subjective Interval history: I have seen her wound is clean and dry. Areas of necrosis have already been debrided. Patient is stable off the vent she has some difficulty breathing but is only requiring 2 L currently. She did not pass her speech evaluation today and will remain n.p.o. Dr. Merino is seen her and recommended restarting the tube feeds. She is currently on TPN. She will remain n.p.o. Exam - Constitutional Vitals: Period Temp Pulse Resp BP Sys/Parker Pulse Ox Last 24 Hr 97.3 F-97.8 F 66-83 9-20 84-151/40-86 94-100 Exam: Heart Rate-[RRR] Lungs-[CTAB but very diminished as she will take deep breaths she is deaf and mute. GI-[+bs soft, very tender Ext-[SCDs Neuro cannot follow neuro exam due to being deaf and mute. psych agitated mood and affect General [mild acute distress due to pain ] skin clean and dry Results - Labs CBC & BMP: 01/17/17 03:48 01/17/17 03:48 Lab Results: I have reviewed the past 24 hour labs Labs: Blood cultures 2 negative no growth. Quality Measures - VTE Contraindication to Pharmacological VTE Prophylaxis: High Risk of Bleeding
[2017-01-17] MEDS ORDERED: INSULIN GLARGINE 100 UNIT/ML SUBCUT SCH (14:58)
[2017-01-17] MEDS ORDERED: FLUCONAZOLE INJ 200 MG in PREMIX 1 EACH IV SCH (15:00)
[2017-01-17] MEDS ORDERED: MAGNESIUM SULF RIDER 2 GM in PREMIX 1 EACH IV ONE (15:01)
--- NOTE | 2017-01-17 15:42 | Infectious Disease Progress ---
Assessment and Plan (1) Septic shock Status: Acute Assessment and plan: This was due to necrotizing fasciitis, resolved. Current Visit: Yes (2) DM type 2 (diabetes mellitus, type 2) Status: Chronic Assessment and plan: Newly diagnosed with A1c of 11.7%. This is likely predisposing factor for the necrotizing fasciitis. Current Visit: Yes (3) Necrotizing fasciitis Status: Acute Assessment and plan: Extensive infection, necrosis involving the left groin/perineal area, with MRSA and anaerobes isolated. There is no evidence of further necrotic tissue. Recommendations: Continue clindamycin and wound care. I am told the wound VAC will be replaced tomorrow. Plan is to treat with antibiotics for 10-14 days depending on the appearance of the wound. Current Visit: Yes Infectious Disease - PN: Subj Interval history: Patient is doing fairly okay, her consort thinks that she is better overall. She has not fever. Only problem is pain to the wound when she has dressing changes. She had some debridement yesterday in the operating room. Wound VAC has not been replaced yet. Infectious Disease Exam (PN) - Constitutional Vitals: Temp Pulse Resp BP Pulse Ox 97.3 F L 74 12 113/53 100 01/17/17 11:00 01/17/17 12:00 01/17/17 14:00 01/17/17 12:00 01/17/17 12:00 General appearance: no acute distress, over weight Exam: General appearance: relatively comfortable - Eye Eye exam: Present: EOMI. no icterus Pupils: Present: DEBBIE - Respiratory Respiratory exam: vesicular BS, no crepitations or wheezes - Cardiovascular Cardiovascular exam: regular rate and rhythm, no murmurs - GI/Abdominal GI/Abdominal exam: normal bowel sounds, soft, non-tender, no organomegaly or mass - Wounds examined with the nurses, it is extensive from the left lateral hip area to the left labia majora, however the wound is healthy pink no purulence or necrotic material noted and there is no foul odor - Extremities Exam Extremities exam: Mild bilateral lower extremity edema - Skin Skin exam: no rash Results - Labs CBC & BMP: 01/17/17 03:48 01/17/17 03:48 Lab Results: I have reviewed the past 24 hour labs Quality Measures - VTE Contraindication to Pharmacological VTE Prophylaxis: High Risk of Bleeding
[2017-01-17] MEDS: SODIUM HYPOCHLORITE 0.25% IRRIG 473 ML BOTTLE TOP SCH (15:51)
[2017-01-17] MEDS ORDERED: TRACE ELEMENTS (5) 1 ML, MULTIVITAMIN INJ 10 ML, INSULIN REGULAR 20 UNIT in AMINO ACIDS... IV SCH (17:00)
[2017-01-17] MEDS: ALBUTEROL/IPRATROPIUM 3 ML NEB RESP TX SCH (20:02)
[2017-01-18] MEDS: METOPROLOL TARTRATE 5 MG/5 ML VIAL IV SCH ×3 (00:30→12:05)
[2017-01-18] MEDS: HYDROmorphone 2 MG/1 ML VIAL IV PRN ×3 (00:33→11:00)
[2017-01-18] MEDS: INSULIN REGULAR 100 UNIT/ML SUBCUT SCH ×3 (00:34→12:05)
[2017-01-18] MEDS: CLINDAMYCIN INJ 900 MG in PREMIX 1 EACH IV SCH ×2 (00:34→10:10)
[2017-01-18] MEDS: METOCLOPRAMIDE 10 MG/2 ML VIAL IV SCH ×3 (00:34→12:05)
[2017-01-18] MEDS ORDERED: DILTIAZEM 100 MG VIAL.ADD IV ONE (02:58)
[2017-01-18] MEDS ORDERED: DILTIAZEM INJ 100 MG in SODIUM CHLORIDE 0.9% 100 ML IV SCH (03:00)
[2017-01-18 05:38] LABS: Basophils % 0.3 % (0.0-0.8); Eosinophils # 0.3 10*3/uL (0.0-0.87); Eosinophils % 4.6 % (0.00-10.9); Hematocrit 27.6 VOL% (35.7-47.0); Hemoglobin 8.7 GM/DL (12.0-16.0); Immature Granulocytes % 0.7 %; Immature Granulocytes Absolute 0.05 #; Lymphocytes # 1.2 10*3/uL (1.4-4.0); Lymphocytes % 16.6 % (21.3-54.2); Mean Corpuscular HGB Conc 31.5 GM/DL (32-36); Mean Corpuscular Hemoglobin 29 PG (27-34); Mean Corpuscular Volume 92.6 FL (87-102); Mean Platelet Volume 10.3 FL (9.6-12.0); Monocytes # 0.6 10*3/uL (0.11-0.8); Monocytes % 7.8 % (1.7-12.7); Neutrophils # 5.2 10*3/uL (1.4-7.4); Platelet Count 313 T/CUMM (130-400); Red Blood Count 2.98 MC/CUMM (3.8-5.5); Red Cell Distribution Width 14.8 % (9.3-17.3); White Blood Count 7.4 T/CUMM (4-12)
[2017-01-18 06:12] LABS: Calcium 7.5 MG/DL (8.5-10.1); Magnesium 1.9 MG/DL (1.8-2.4); Osmolality,Calculated 283.4 MOS/KG (273-304); Potassium 4.1 MMOL/L (3.5-5.1)
[2017-01-18 06:20] LABS: Eosinophils 2 % (0-10); Hypochromasia 1+; Lymphocytes 10 % (20-55); Platelet Estimate Adequate; Polychromasia Slight; Segmented Neutrophils 77 % (50-85); Target Cells Slight; Total Cells Counted 100
[2017-01-18] MEDS: ALBUTEROL/IPRATROPIUM 3 ML NEB RESP TX SCH ×2 (07:32→14:25)
--- NOTE | 2017-01-18 09:27 | Pulmonology Progress Note ---
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 She has had extensive debridement and has a large open wound. She was septic but is doing better now. She is a poorly controlled diabetic. She went back to surgery Saturday and had further debridement. She had a fairly good weekend and was stable on the ventilator. She is not on any pressors now. Her renal function is back to normal. She has excellent oxygenation on the ventilator. She did grow out MRSA along with anaerobes. She was extubated and her breathing is doing okay. She is still getting antibiotics and wound care. She has not had any fever now. Overall she seems to be stable. Exam (Progress Note) - Constitutional Vitals: Period Temp Pulse Resp BP Sys/Parker Pulse Ox Last 24 Hr 97.3 F-98.0 F 62-125 8-22 79-138/38-66 96-100 Exam: General appearance: no acute distress (Patient looks reasonably comfortable on low-flow oxygen now. She responds easily. It is certainly hard to communicate with her.) - Head Head exam: Present: normal inspection - Eye Eye exam: Present: EOMI. Absent: scleral icterus Pupils: Present: DEBBIE - ENT ENT exam: Present: Unremarkable - Neck Neck exam: Present: normal inspection - Respiratory Respiratory exam: Present: clear to auscultation bilaterally, she has good breath sounds bilaterally. She does not have any rales or wheezing. - Cardiovascular Cardiovascular exam: Present: She has a regular rhythm now without loud murmur. - GI/Abdominal GI/Abdominal exam: Present: hypoactive bowel sounds, soft. Absent: organomegaly , tenderness. Her lower abdomen and perineum is wrapped - Extremities Exam Extremities exam: Absent: calf tenderness, edema, she has no signs of phlebitis. - Neurological Exam Neurological exam: Present: She moves everything but is very sleepy now. - Psychiatric Psychiatric exam: Absent: anxious - Skin Skin exam: Present: warm, dry Results - Labs CBC & BMP: 01/18/17 04:40 01/18/17 04:40 Assessment and Plan (1) Necrotizing fasciitis Status: Acute Assessment and plan: Patient has extensive necrotizing fasciitis and has had significant surgical debridement. She will continue with wound care and she seems stable. Current Visit: Yes (2) DM type 2 (diabetes mellitus, type 2) Status: Chronic Assessment and plan: The patient did not know she was a diabetic until last week. Her glucose is 236 now. Current Visit: Yes (3) Deaf-mutism Status: Chronic Assessment and plan: Communication may be difficult. He is resting comfortably off the ventilator now. Overall she is reasonably comfortable. Current Visit: Yes (4) Chronic anemia Status: Acute Assessment and plan: Her hematocrit is 27.6 and stable. Current Visit: Yes
--- NOTE | 2017-01-18 10:01 | Operative Note ---
Date of procedure: 01/16/17 Procedure: Date of procedure: 01/16/17 Pre-op diagnosis: Large open wound abdominal wall status post debridement Post-op diagnosis: same Procedure: Excisional debridement of subcutaneous tissue left lower quadrant abdominal wall and thigh 14 x 30 cm Findings and technique: After informed consent was obtained the patient was brought the operating room and placed in supine position. After IV sedation was administered the patient's lower abdomen thigh and perineum were prepped and draped in usual sterile fashion. Wound was explored with the VAC dressing off. There were scattered areas of necrotic subcutaneous tissue in the superior aspect of the wound which were aggressively debrided and the patient actually tolerated this well under sedation. Cautery was used for any potential bleeding points. I removed significant areas in the superior aspect of the wound and down to about the midportion of the wound. This ended up being an area of 14 x 30 cm of subcutaneous tissue that was debrided. This did not appear to be active aggressive necrotizing infection but this was probably more necrotic tissue left from the previous infection. Good hemostasis was obtained and the wound was aggressively irrigated and packed open with Kerlix rolls and a bulky dressing. I am going to leave the VAC dressing off for a couple of days in case we need to debride this again. Anesthesia: MAC Surgeon / Physician: Tung Pollard III. Estimated blood loss: other (50 mL) Specimens: none sent Condition: stable Disposition: PACU Surgeon / Physician: Tung Pollard III. Results - Labs CBC & BMP: 01/18/17 04:40 01/18/17 04:40 Discharge Plan - Discharge Medications No Action Acetaminophen 2 tablet PO Q6HR PRN PRN Reason: Pain cefUROXime axetil [Cefuroxime] 1 tablet PO BID Metformin HCl 1 tablet PO BID - Follow Up or Referral - Forms/Instructions
[2017-01-18] MEDS: ENOXAPARIN 40 MG/0.4 ML SYRINGE SUBCUT SCH (10:11)
[2017-01-18] MEDS: SODIUM HYPOCHLORITE 0.25% IRRIG 473 ML BOTTLE TOP SCH (10:11)
[2017-01-18] MEDS: PANTOPRAZOLE 40 MG VIAL IV SCH (10:11)
--- NOTE | 2017-01-18 10:49 | Discharge Summary ---
<Armando Carlisle - Last Filed: 01/18/17 11:25> Hospital Course - Hospital Course Hospital Course: Ms. mathis is a 61-year-old female who was admitted through the emergency room on 01/10/2017 for further evaluation of left hip pain. She was admitted to the general surgery service for evaluation of necrotizing fasciitis. At the time of admission, the patient developed hypotension and was noted to be in atrial fibrillation with rapid ventricular response. Patient did require a central line placement. Upon further evaluation patient was found to be in severe sepsis, necrotizing fasciitis, acute renal failure, A. fib with RVR, new onset diabetes type 2 and have deaf mutism. Cardiology was consulted to assist with atrial fibrillation and the patient was started on Cardizem drip for rate control. Patient had excisional debridement of skin and subcutaneous tissue and the fascia of perineum by an anterior abdominal wall and left flank measuring 28 x 43 cm for necrotizing soft tissue infection on 01/10/2017. She was taken back to the ICU in critical condition. She was placed on mechanical ventilation and pulmonology was consulted. Patient was transferred to the hospitalist service postoperatively for management of her life-threatening medical problems. The remainder of her hospital course was complicated, highlighted by consultations from pulmonology, cardiology, infectious disease and gastroenterology. The patient did have an NG tube placed for feedings. However she initially was not tolerating feedings well and she did develop an exacerbation of gastroparesis. She was started on Reglan. Patient continued to receive aggressive wound care and clindamycin for MRSA and any anaerobes. Infectious disease plan to treat with antibiotics for 10-14 days pending on appearance of the wound. Her diabetes mellitus was newly diagnosed with hemoglobin A1c of 11.7 which was likely a predisposing factor to the necrotizing fasciitis. With appropriate wound care and antibiotics for necrotizing fasciitis, patient sepsis resolved. The patient had a wound VAC placed on 01/14/2017 and the wound has continued to improve. On 01/16/2017, the patient underwent another excisional debridement of subcutaneous tissue of the left lower quadrant of the abdominal wall and thigh measuring 14 x 30 cm. On 01/16/2017, the patient had a trial of CPAP, did well and was extubated. She is breathing comfortably on low flow oxygen. Patient's tube feedings were restarted on 01/17/2017. Patient is currently tolerating feedings well with no reports of high residuals. At this time, the patient has stabilized enough for discharge to LTAC facility. She can be weaned off TPN as she tolerates tube feeds. She has been accepted at [facility] for continuation of care. Patient seen and examined. Hospital course reviewed and edited. Discharge Plan - Discharge Data Disposition: Disch/Xfer to Assisted Hos - Discharge Medications New Bisacodyl Tab [Dulcolax Tab] 10 mg PO DAILY PRN tablet PRN Reason: Constipation Dextrose 50% [D50] 25 gm IV PRN PRN syringe PRN Reason: Hypoglycemia with IV access Dextrose 50% [D50] 25 gm IV PRN PRN vial PRN Reason: Hypoglycemia with IV access Enoxaparin [Lovenox] 40 mg SUBCUT Q24H syringe Fluconazole Inj [Diflucan Inj] 200 mg IV Q24H Glucagon 1 mg IM PRN PRN vial PRN Reason: Hypoglycemia w/o IV access Insulin Glargine [Lantus] 15 unit SUBCUT DAILY unit Metoclopramide Inj [Reglan Inj] 10 mg IV Q6HR vial Ondansetron Inj [Zofran Inj] 4 mg IV Q6H PRN vial PRN Reason: Nausea/Vomiting Sodium Hypochlorite 0.25% Irr [Dakins 1/2 Strength 0.25% Soln] 1 applic TOP DAILY applic Acetaminophen Tab [Tylenol Tab] 650 mg PO Q6H PRN tablet PRN Reason: Pain Mild (1-3) And/Or Fever Albuterol/Ipratropium Neb [Duoneb] 3 ml RESP TX RT TID Clindamycin Inj [Cleocin Inj] 900 mg IV Q8H 5 Days fentaNYL 25 MCG/HR PATCH [Duragesic 25 Patch] 1 patch TRANSDERM Q3DAY patch HYDROmorphone INJ [Dilaudid Inj] 1 mg IV Q3H PRN vial PRN Reason: Pain Severe (8-10) Insulin Regular [HumuLIN R] See Protocol SUBCUT Q6HR unit Multivitamin Inj 10 ml IV .Q24H vial Pantoprazole Inj [Protonix Inj] 40 mg IV DAILY vial Discontinued Acetaminophen 2 tablet PO Q6HR PRN PRN Reason: Pain cefUROXime axetil [Cefuroxime] 1 tablet PO BID Metformin HCl 1 tablet PO BID - Follow Up or Referral - Forms/Instructions Exam - Constitutional Vitals: Period Temp Pulse Resp BP Sys/Parker Pulse Ox Last 24 Hr 97.6 F-98.0 F 62-125 8-26 79-138/38-68 95-100 Discharge Results Procedures and tests throughout hospitalization: Pending Orders 01/21/17 04:00 Magnesium MOTH Phosphorous Routine Prealbumin Routine Labs on day of discharge: Labs from last 24 hours 01/18/17 01/18/17 01/18/17 06:27 04:40 04:40 WBC 7.4 RBC 2.98 L Hgb 8.7 L Hct 27.6 L MCV 92.6 MCH 29 MCHC 31.5 L RDW 14.8 Plt Count 313 MPV 10.3 Neut % (Auto) 70.0 Lymph % (Auto) 16.6 L [place] % (Auto) 7.8 Eos % (Auto) 4.6 Baso % (Auto) 0.3 Neut # (Auto) 5.2 Lymph # (Auto) 1.2 L [place] # (Auto) 0.6 Eos # (Auto) 0.3 Baso # (Auto) 0.0 Total Counted 100 Immature Gran % 0.7 Nucleated RBC % 0.0 Immature Gran # 0.05 Segmented Neutrophils 77 Lymphocytes 10 L Monocytes 11 Eosinophils 2 Nucleated RBCs # 0.00 Platelet Estimate Adequate Immature Plt Fraction 0.0 Polychromasia Slight Hypochromasia 1+ Target Cells Slight Sodium 140 Potassium 4.1 Chloride 107 Carbon Dioxide 27 Anion Gap 10.1 BUN 14 Creatinine 0.50 L GFR Calculation 133 BUN/Creatinine Ratio 28.00 H Glucose 170 H POC Glucose 236 H Calculated Osmolality 283.4 Calcium 7.5 L Magnesium 1.9 01/18/17 01/17/17 01/17/17 00:19 18:12 11:44 WBC RBC Hgb Hct MCV MCH MCHC RDW Plt Count MPV Neut % (Auto) Lymph % (Auto) [place] % (Auto) Eos % (Auto) Baso % (Auto) Neut # (Auto) Lymph # (Auto) [place] # (Auto) Eos # (Auto) Baso # (Auto) Total Counted Immature Gran % Nucleated RBC % Immature Gran # Segmented Neutrophils Lymphocytes Monocytes Eosinophils Nucleated RBCs # Platelet Estimate Immature Plt Fraction Polychromasia Hypochromasia Target Cells Sodium Potassium Chloride Carbon Dioxide Anion Gap BUN Creatinine GFR Calculation BUN/Creatinine Ratio Glucose POC Glucose 246 H 185 H 209 H Calculated Osmolality Calcium Magnesium DS: Provider Date of admission: 01/10/17 04:50 Primary care physician: Juan José Moore MD Attending physician on admission: Sebastián Pollard Jr. Consults: 01/10/17 06:03 Consult to Physician [CONS] Routine Comment: afib with RVR surgery this AM Consulting Provider: When should Consulting Provider be notified: Now Consult to Specialist Group: Cardiology When should Consulting Provider be notified: Now 01/10/17 06:15 Consult to Dietitian [CONS] Routine Reason for Dietitian: Dietary Consult 01/10/17 07:17 Consult to Pharmacy [CONS] Routine Reason for Pharmacy Consult: Adjust Meds Renal Funct Comment: vancomycin dosing 01/10/17 09:36 Consult to Physician [CONS] Routine Comment: Necrotizing soft tissue infection Consulting Provider: Consult to Specialist Group: Infectious Disease When should Consulting Provider be notified: Now 01/10/17 11:01 Consult to Physician [CONS] Routine Comment: Consulting Provider: Yevgeniy Chamberlain Consult to Specialist Group: Pulmonology When should Consulting Provider be notified: Now Person Notified: Jina Date Notified: 01/10/17 Time Notified: 11:04 01/10/17 13:11 Consult to Physician [CONS] Routine Comment: Consulting Provider: Belen Canela Consult to Specialist Group: Hospitalist Person Notified: Dr. Canela Date Notified: 01/10/17 Time Notified: 06:55 01/10/17 16:04 Consult to Dietitian [CONS] Routine Reason for Dietitian: TF-Initiate/Manage Consult Comment: Dr. Pollard III wants TF to run at 20mL/hr. for now. Consult to Physician [CONS] Routine Comment: Consulting Provider: Kassandra Ly Consult to Specialist Group: Infectious Disease Person Notified: Monica Date Notified: 01/10/17 Time Notified: 16:08 01/14/17 10:58 Consult to Case Mgmt/Social Srvs [CONS] Routine Reason for Case Mgmt/Social Srvs: LTAC Consult Comment: WOUND CARE AND IV ABX 01/15/17 12:51 Consult to Physician [CONS] Routine Comment: ileus, gastroparesis, high residuals Consulting Provider: Peyman Merino When should Consulting Provider be notified: Now Person Notified: Vangie (Dr. Merino's office) Date Notified: 01/15/17 Time Notified: 14:00 01/15/17 16:09 Consult to Dietitian [CONS] Routine Reason for Dietitian: TPN/PPN-Initiate/Manage Consult Comment: high tube feed residual 01/16/17 09:13 Consult to Anesthesiology [CONS] Routine Consulting Provider: Reason for Anesthesiology: Pre-op Clearance Discharging clinician: Armando XIONG Expected date of discharge: 01/18/17 <Ruma Padron - Last Filed: 01/18/17 11:58> Hospital Course - Time spent with patient Time with patient DS: Greater than 30 minutes (60 min) Diagnosis - Discharge Diagnosis (1) Acute respiratory failure Status: Acute (2) Necrotizing fasciitis Status: Acute (3) Severe sepsis Status: Resolved (4) Acute renal failure Status: Resolved (5) Atrial fibrillation with rapid ventricular response Status: Resolved (6) DM type 2 (diabetes mellitus, type 2) Status: Chronic (7) Deaf-mutism Status: Chronic (8) Ileus Status: Acute (9) Chronic anemia Status: Acute Discharge Plan - Discharge Data Condition at Discharge: Stable Discharge Diet: other (tube feeding per used car salesperson ) Activity: as per physical therapy, wear oxygen at all times Hygiene: no restrictions Weight Bearing at Discharge: other (bedrest ) Exam - Constitutional General appearance: no acute distress, morbidly obese - Respiratory Respiratory exam: Present: clear to auscultation bilaterally. Absent: rhonchi, wheezes - Cardiovascular Cardiovascular exam: Present: regular rate and rhythm. Absent: systolic murmur - GI/Abdominal GI/Abdominal exam: Present: normal bowel sounds, tenderness (over wound), soft - Extremities Exam Extremities exam: Present: normal inspection, normal capillary refill - Neurological Exam Neurological exam: Present: alert ( and mute ) - Psychiatric Psychiatric exam: Present: normal affect, normal mood
--- NOTE | 2017-01-18 10:50 | Infectious Disease Progress ---
Assessment and Plan (1) Septic shock Status: Acute Assessment and plan: This was due to necrotizing fasciitis, resolved. Current Visit: Yes (2) DM type 2 (diabetes mellitus, type 2) Status: Chronic Assessment and plan: Newly diagnosed with A1c of 11.7%. This is likely predisposing factor for the necrotizing fasciitis. Current Visit: Yes (3) Necrotizing fasciitis Status: Acute Assessment and plan: Extensive infection, necrosis involving the left groin/perineal area, with MRSA and anaerobes isolated. There is no evidence of further necrotic tissue with patient having been on antibiotics for the past week. Recommendations: Continue clindamycin and wound care. Would complete a total of 2 weeks antibiotic therapy so until January 24. Discussed with Dr. Padron Current Visit: Yes Infectious Disease - PN: Subj Interval history: Patient generally doing okay, main problem is pain with dressing changes. Has not had fever. Eating okay. Diarrhea improved. Infectious Disease Exam (PN) - Constitutional Vitals: Temp Pulse Resp BP Pulse Ox 97.8 F 87 18 94/49 95 01/18/17 07:00 01/18/17 10:00 01/18/17 10:00 01/18/17 10:00 01/18/17 10:00 General appearance: no acute distress, over weight Exam: General appearance: A bit drowsy having just gotten Dilaudid - Eye Eye exam: Present: EOMI. no icterus Pupils: Present: DEBBIE - Respiratory Respiratory exam: vesicular BS, no crepitations or wheezes - Cardiovascular Cardiovascular exam: regular rate and rhythm, no murmurs - GI/Abdominal GI/Abdominal exam: normal bowel sounds, soft, non-tender, no organomegaly or mass - Wounds packed and covered - Extremities Exam Extremities exam: bilateral lower extremity edema - Skin Skin exam: no rash Results - Labs CBC & BMP: 01/18/17 04:40 01/18/17 04:40 Lab Results: I have reviewed the past 24 hour labs Quality Measures - VTE Contraindication to Pharmacological VTE Prophylaxis: High Risk of Bleeding
--- NOTE | 2017-01-18 11:06 | Gastrointestinal Progress Note ---
<KaliantoinetteMonica Venancio - Last Filed: 01/18/17 11:04> Assessment and Plan (1) Ileus Status: Acute Assessment and plan: 01/18-tube feedings restarted on yesterday, currently tolerating with no reports of high residuals. ST evaluation with recommendations of continued tube feedings noted. Plan an addendum to follow by Dr. Merino. 01/17-NG is clamped, continue with TPN. Bowel sounds slightly hypoactive, continued BMS output. No other changes at this time. Plan an addendum to follow by Dr. Merino. 01/16-NG tube remains clamped. Tube feedings on hold. Good bowel sounds and continued BMS output. Continue to monitor at this time. Plan an addendum to follow by Dr. Merino. 01/15-Recent onset of high residuals with tube feedings with CT of abdomen w/o contrast showing no evidence of bowel obstruction, nondilated bowel without other acute findings. Hx of diabetes, not well controlled. KUB and ultrasound results noted as below. BMS in place with watery stools, negative for CDF 1. Plan an addendum to follow by Dr. Merino. Gastroenterology - PN: Subj Interval history: CC: Ileus Patient is seen asleep but is easily arousable with tactile stimuli. Her tube feedings were restarted on yesterday at 20 cc an hour and at this time she seems to be tolerating these without high residuals. She is noted to have a speech therapy evaluation however due to her inability to remain alert to complete the study recommendations continues for n.p.o. and alternate methods of nutrition at this time. She was noted also to have debridement of her abdominal wound today by Dr. Pollard. Abdomen is soft, nontender to palpation. ROS: No acute distress noted at present Exam (Progress Note) - Constitutional Vitals: Period Temp Pulse Resp BP Sys/Parker Pulse Ox Last 24 Hr 97.6 F-98.0 F 62-125 8-26 79-138/38-68 95-100 General appearance: no acute distress, over weight - Head Head exam: Present: normal inspection, normocephalic - Eye Eye exam: Present: other (Lids and conjunctive are unremarkable). Absent: scleral icterus - ENT ENT exam: Present: normal exam, normal oropharynx - Neck Neck exam: Present: normal inspection - Respiratory Respiratory exam: Present: clear to auscultation bilaterally. Absent: rales, rhonchi, wheezes - Cardiovascular Cardiovascular exam: Present: regular rate and rhythm. Absent: diastolic murmur , JVD, systolic murmur - GI/Abdominal GI/Abdominal exam: Present: normal bowel sounds, soft. Absent: ascites, distended, mass, organomegaly, tenderness - Extremities Exam Extremities exam: Present: normal inspection, full ROM - Back Exam Back exam: Present: normal inspection - Neurological Exam Neurological exam: Present: altered - Psychiatric Psychiatric exam: Present: other - Skin Skin exam: Present: normal color, warm, dry Results - Labs CBC & BMP: 01/18/17 04:40 01/18/17 04:40 Lab Results: I have reviewed the past 24 hour labs <Peyman Merino - Last Filed: 01/18/17 16:34> Exam (Progress Note) - Constitutional Vitals: Period Temp Pulse Resp BP Sys/Parker Pulse Ox Last 24 Hr 97.1 F-98.0 F 68-125 10-26 79-137/38-87 93-98 Results - Labs CBC & BMP: 01/18/17 04:40 01/18/17 04:40
[2017-01-18 14:22] VITALS: BP 123/87
--- NOTE | 2017-01-18 14:44 | Cardiology Progress Note ---
<Paula Marcus E - Last Filed: 01/18/17 16:37> Assessment and Plan - Time spent with patient Time spent with patient: Less than 30 minutes (1) Paroxysmal atrial fibrillation Status: Acute Assessment and plan: See plan of care listed below. (2) Necrotizing fasciitis Status: Acute Assessment and plan: See plan of care listed below. (3) DM type 2 (diabetes mellitus, type 2) Status: Chronic Assessment and plan: See plan of care listed below. (4) Severe sepsis Status: Resolved Assessment and plan: See plan of care listed below. (5) Acute renal failure Status: Resolved Assessment and plan: See plan of care listed below. (6) Deaf-mutism Status: Chronic Assessment and plan: See plan of care listed below. Cardiology - PN: Subj Interval history: Train Crew Member: new to Dr. Webster SUMMARY: Ms. Mckeon is a 61 year old female with a history of type 2 diabetes mellitus and obesity who was admitted with septic shock, acute renal failure, and new onset rapid atrial fibrillation. We were consulted to see her and aid in management of her A. fib. She has had 2 extensive debridements of the left lower abdominal wall and pelvic area for necrotizing fasciitis. She has been on IV Cardizem and subsequently converted to normal sinus rhythm. She is no longer requiring vasopressors. She is making good urine. She had an echocardiogram which showed ejection fraction 60% with dilated left atrium and moderate TR with PA pressure 55. She is being treated with broad-spectrum antibiotics. She remains on mechanical ventilation. JANUARY 18, 2017 UPDATE: Ms. Mckeon is resting comfortably and is arousable to tactile stimuli. She remains in sinus rhythm with controlled rate. She has been intolerant to tube feedings, therefore, we have not started her on oral yogesh blocking agents at this time. She was started on IV lopressor to help maintain rate/rhythm; however, she has had some hypotension and this has had to be held on numerous occasions. She is receiving TPN and will be transferred to [facility] today. Will continue to monitor. ASSESSMENT/PLAN: 1. PAROXYSMAL ATRIAL FIBRILLATION - Converted with IV Cardizem. She is currently not tolerating much via NGT and is on TPN. If necessary, we can use digoxin to help control her HR if she goes back into afib. She has been rate controlled but has been unable to tolerate IV lopressor due to intermittent hypotension and HR<70. She has been started on anticoagulation with Lovenox. Once she is tolerating PO, could transition to oral cardizem and oral anticoagulation. H&H is stable at 8.7 and 27.6. 2. NECROTIZING FASCIITIS - General surgery is following. She has had 2 surgical debridements and continues on broad spectrum antibiotics and is being transferred to [facility] for [facility] care. 3. TYPE 2 DIABETES MELLITUS - She is on Accu-Cheks and sliding scale insulin. 4. SEPSIS - No longer requiring vasopressors. She is getting broad-spectrum antibiotics and IV fluids. 5. ACUTE RENAL FAILURE - Much improved with creatinine 0.5. 6. HISTORY OF HEARING LOSS - Patient is deaf. Communication is a little difficult. Exam (Progress Note) - Constitutional Vitals: Period Temp Pulse Resp BP Sys/Parker Pulse Ox Last 24 Hr 97.1 F-98.0 F 68-125 10-26 79-138/38-87 93-98 Exam: General appearance: Overweight, no acute distress. Head exam: Present: normal inspection, normocephalic, atraumatic. Absent: hematoma, laceration Eye exam: Present: EOMI. Absent: conjunctival injection, nystagmus, periorbital swelling, scleral icterus, laceration to eyelids Pupils: Present: PERRL. Absent: constricted, dilated, fixed, irregular, unequal ENT exam: Present: normal external ear exam, NGT in place and clamped. Neck exam: Present: normal inspection. Absent: lymphadenopathy, meningismus, tenderness, thyromegaly Respiratory exam: Present: Coarse breath sounds anteriorly. On O2 via NBP. Absent: accessory muscle use Cardiovascular exam: Present: regular rate and rhythm. Absent: gallop, rubs, murmur GI/Abdominal exam: Present: normal bowel sounds, soft. Wound vac to left lower abdomen, left upper thigh with surrounding erythema. Absent: distended, firm, guarding, hernia, mass, rebound. Extremities exam: Present: normal inspection, normal capillary refill. Upper extremity pulses 2+. Lower extremity pulses 2+. Absent: calf tenderness, edema Back exam: Present: Unable to examine due to habitus. Neurological exam: Present: Patient is deaf which limits communication. She does move all extremities spontaneously. When she's awake, she will follow some simple commands. No resting or essential tremor. Psychiatric exam: Present: Unable to adequately assess due to patient being sedated having recently received pain medication. Skin exam: Present: normal color, warm, dry, intact. Absent: cyanosis, diaphoretic, rash, urticaria Result/EKG - Labs CBC & BMP: 01/18/17 04:40 01/18/17 04:40 Lab Results: I have reviewed the past 24 hour labs Labs: Laboratory Results - last 24 hr 01/17/17 01/18/17 01/18/17 18:12 00:19 04:40 WBC 7.4 RBC 2.98 L Hgb 8.7 L Hct 27.6 L MCV 92.6 MCH 29 MCHC 31.5 L RDW 14.8 Plt Count 313 MPV 10.3 Neut % (Auto) 70.0 Lymph % (Auto) 16.6 L Davidson % (Auto) 7.8 Eos % (Auto) 4.6 Baso % (Auto) 0.3 Neut # (Auto) 5.2 Lymph # (Auto) 1.2 L Davidson # (Auto) 0.6 Eos # (Auto) 0.3 Baso # (Auto) 0.0 Total Counted 100 Immature Gran % 0.7 Nucleated RBC % 0.0 Immature Gran # 0.05 Segmented Neutrophils 77 Lymphocytes 10 L Monocytes 11 Eosinophils 2 Nucleated RBCs # 0.00 Platelet Estimate Adequate Immature Plt Fraction 0.0 Polychromasia Slight Hypochromasia 1+ Target Cells Slight Sodium Potassium Chloride Carbon Dioxide Anion Gap BUN Creatinine GFR Calculation BUN/Creatinine Ratio Glucose POC Glucose 185 H 246 H Calculated Osmolality Calcium Magnesium 01/18/17 01/18/17 01/18/17 04:40 06:27 11:44 WBC RBC Hgb Hct MCV MCH MCHC RDW Plt Count MPV Neut % (Auto) Lymph % (Auto) Davidson % (Auto) Eos % (Auto) Baso % (Auto) Neut # (Auto) Lymph # (Auto) Davidson # (Auto) Eos # (Auto) Baso # (Auto) Total Counted Immature Gran % Nucleated RBC % Immature Gran # Segmented Neutrophils Lymphocytes Monocytes Eosinophils Nucleated RBCs # Platelet Estimate Immature Plt Fraction Polychromasia Hypochromasia Target Cells Sodium 140 Potassium 4.1 Chloride 107 Carbon Dioxide 27 Anion Gap 10.1 BUN 14 Creatinine 0.50 L GFR Calculation 133 BUN/Creatinine Ratio 28.00 H Glucose 170 H POC Glucose 236 H 128 H Calculated Osmolality 283.4 Calcium 7.5 L Magnesium 1.9 - EKG EKG results: interpreted by me, sinus rhythm Quality Measures - VTE Contraindication to Pharmacological VTE Prophylaxis: High Risk of Bleeding <Colleen San - Last Filed: 01/18/17 17:43> Cardiology - PN: Subj Interval history: I have personally interviewed and evaluated the patient, reviewed the chart and discussed medical decision-making with practitioner Amrit. I have read this note and agree with her documentation here in. Exam (Progress Note) - Constitutional Vitals: Period Temp Pulse Resp BP Sys/Parker Pulse Ox Last 24 Hr 97.1 F-98.0 F 68-125 10-26 79-137/38-87 93-98 Result/EKG - Labs CBC & BMP: 01/18/17 04:40 01/18/17 04:40 Labs: Laboratory Results - last 24 hr 01/17/17 01/18/17 01/18/17 18:12 00:19 04:40 WBC 7.4 RBC 2.98 L Hgb 8.7 L Hct 27.6 L MCV 92.6 MCH 29 MCHC 31.5 L RDW 14.8 Plt Count 313 MPV 10.3 Neut % (Auto) 70.0 Lymph % (Auto) 16.6 L Davidson % (Auto) 7.8 Eos % (Auto) 4.6 Baso % (Auto) 0.3 Neut # (Auto) 5.2 Lymph # (Auto) 1.2 L Davidson # (Auto) 0.6 Eos # (Auto) 0.3 Baso # (Auto) 0.0 Total Counted 100 Immature Gran % 0.7 Nucleated RBC % 0.0 Immature Gran # 0.05 Segmented Neutrophils 77 Lymphocytes 10 L Monocytes 11 Eosinophils 2 Nucleated RBCs # 0.00 Platelet Estimate Adequate Immature Plt Fraction 0.0 Polychromasia Slight Hypochromasia 1+ Target Cells Slight Sodium Potassium Chloride Carbon Dioxide Anion Gap BUN Creatinine GFR Calculation BUN/Creatinine Ratio Glucose POC Glucose 185 H 246 H Calculated Osmolality Calcium Magnesium 01/18/17 01/18/17 01/18/17 04:40 06:27 11:44 WBC RBC Hgb Hct MCV MCH MCHC RDW Plt Count MPV Neut % (Auto) Lymph % (Auto) Davidson % (Auto) Eos % (Auto) Baso % (Auto) Neut # (Auto) Lymph # (Auto) Davidson # (Auto) Eos # (Auto) Baso # (Auto) Total Counted Immature Gran % Nucleated RBC % Immature Gran # Segmented Neutrophils Lymphocytes Monocytes Eosinophils Nucleated RBCs # Platelet Estimate Immature Plt Fraction Polychromasia Hypochromasia Target Cells Sodium 140 Potassium 4.1 Chloride 107 Carbon Dioxide 27 Anion Gap 10.1 BUN 14 Creatinine 0.50 L GFR Calculation 133 BUN/Creatinine Ratio 28.00 H Glucose 170 H POC Glucose 236 H 128 H Calculated Osmolality 283.4 Calcium 7.5 L Magnesium 1.9
== END 2017-01-18 14:57 | DRG 463 ==
LOC: EDUNIT# → EDBD → N.ED 00:57 → SUATTDRO 04:50 → N.EDINP 04:50 → N.CC 05:25
PROVIDERS: ATTEND Internal Medicine

== ENCOUNTER 2017-04-05 05:44 | Inpatient (IN) ==
[2017-04-05] MEDS ORDERED: CLINDAMYCIN INJ 600 MG in PREMIX 1 EACH IV ONE (06:00)
[2017-04-05 06:32] LABS: Basophils % 0.7 % (0.0-0.8); Eosinophils # 0.7 10*3/uL (0.0-0.87); Eosinophils % 11.1 % (0.00-10.9); Hematocrit 36.8 VOL% (35.7-47.0); Immature Granulocytes % 0.2 %; Immature Granulocytes Absolute 0.01 #; Lymphocytes # 1.8 10*3/uL (1.4-4.0); Lymphocytes % 29.1 % (21.3-54.2); Mean Corpuscular HGB Conc 32.6 GM/DL (32-36); Mean Corpuscular Hemoglobin 28 PG (27-34); Mean Platelet Volume 9.8 FL (9.6-12.0); Monocytes # 0.5 10*3/uL (0.11-0.8); Neutrophils % 49.9 % (38.7-73.9); Platelet Count 288 T/CUMM (130-400); Red Blood Count 4.23 MC/CUMM (3.8-5.5); Red Cell Distribution Width 14.2 % (9.3-17.3)
[2017-04-05 07:02] LABS: PT Patient Result 10.5 SECS; Partial Thromboplastin Time 29.3 SECS (0-40)
[2017-04-05 07:14] LABS: Eosinophils 7 % (0-10); Hypochromasia 2+; Lymphocytes 21 % (20-55); Platelet Estimate Adequate; Segmented Neutrophils 63 % (50-85); Total Cells Counted 100
[2017-04-05 07:21] LABS: Alanine Aminotransferase 17 U/L (13-56); Albumin 3.4 G/DL (3.4-5.0); Alkaline Phosphatase 94 U/L (45-117); Aspartate Amino Transferase 16 U/L (0-37); Bilirubin,Total < 0.39 MG/DL (0.2-1.0); Blood Urea Nitrogen 9 MG/DL (7-18); Calcium 9.3 MG/DL (8.5-10.1); Glucose 138 MG/DL (74-106); Osmolality,Calculated 281.3 MOS/KG (273-304); Potassium 3.7 MMOL/L (3.5-5.1); Sodium 141 MMOL/L (136-145); Total Protein 7.7 G/DL (6.4-8.3)
[2017-04-05] MEDS ORDERED: FAMOTIDINE 20 MG TABLET PO ONE (08:09)
[2017-04-05] MEDS ORDERED: THROMBIN TOPICAL (RECOMBINANT) 5,000 UNIT VIAL TOP ONE ×2 (09:06→09:20)
[2017-04-05] MEDS ORDERED: LIDOCAINE 1%/EPI INJ 20 ML VIAL ONE (09:06)
[2017-04-05] MEDS ORDERED: MINERAL OIL (TOPICAL) 25 ML BOTTLE TOP ONE (09:06)
[2017-04-05] MEDS ORDERED: MUPIROCIN 2% OINT 22 GM TUBE TOP ONE (09:06)
[2017-04-05] MEDS ORDERED: BUPIVACAINE 0.25% 50 ML VIAL ONE (09:06)
[2017-04-05] MEDS: LACTATED RINGERS 1,000 ML IV SCH (09:12)
[2017-04-05] MEDS ORDERED: SPRAY APPLICATOR KIT 1 EACH MISC ONE (09:19)
[2017-04-05] MEDS ORDERED: FAMOTIDINE 20 MG TABLET ONE (09:23)
[2017-04-05] MEDS ORDERED: CLINDAMYCIN INJ 50 ML IV ONE (09:23)
[2017-04-05] MEDS ORDERED: GENTAMICIN 0.1% CREAM 15 GM TUBE TOP ONE (10:12)
[2017-04-05] MEDS ORDERED: BENZOIN COMPOUND TINCTURE 58 ML BOTTLE TOP ONE (10:13)
[2017-04-05] MEDS ORDERED: oxyCODONE/ACETAMINOPHEN 5-325 MG TABLET PO PRN (10:46)
[2017-04-05] MEDS ORDERED: DEXTROSE 50% 25 GM/50 ML VIAL IV PRN (10:46)
[2017-04-05] MEDS ORDERED: GLUCAGON 1 MG VIAL IM PRN (10:46)
[2017-04-05] MEDS ORDERED: BISACODYL 5 MG TABLET PO PRN (10:46)
[2017-04-05] MEDS ORDERED: HYDROmorphone 2 MG/1 ML VIAL IV PRN (10:46)
[2017-04-05] MEDS ORDERED: ACETAMINOPHEN 325 MG TABLET PO PRN (10:46)
[2017-04-05] MEDS ORDERED: ONDANSETRON 4 MG/2 ML VIAL IV PRN (10:56)
[2017-04-05] MEDS ORDERED: SKIN HEALING OINT (AQUAPHOR) 50 GM TUBE TOP PRN (10:58)
[2017-04-05] MEDS ORDERED: CHLORHEXIDINE 4% SOLN 118 ML BOTTLE TOP ONE (10:58)
[2017-04-05 11:22] LABS: Amorphous Crystals,Urine Occasional /HPF (Few); Apearance,Urine CLOUDY (Clear); Bilirubin,Urine Negative (Negative); Blood, Urine Negative (Negative); Glucose,Urine (UA) Negative (Negative); Ketones,Urine Negative (Negative); Mucus,Urine Occasional /LPF (Occasional); Nitrite,Urine Negative (Negative); Protein,Urine 30 MG/DL; Squamous Epithelial Cell,Urine Occasional /HPF (0-10); Urine Color Amber (Yellow); Urine Specific Gravity 1.028 (1.001-1.035)
[2017-04-05] MEDS ORDERED: ACETAMINOPHEN 1,000 MG/100 ML VIAL IV ONE (11:27)
[2017-04-05] MEDS ORDERED: PROPOFOL 200 MG/20 ML VIAL IV ONE (11:28)
[2017-04-05] MEDS ORDERED: SEVOFLURANE 1 UNIT/15 MINUTE INH ONE (11:28)
[2017-04-05] MEDS ORDERED: MIDAZOLAM 2 MG/2 ML VIAL ONE (11:29)
[2017-04-05] MEDS ORDERED: fentaNYL 100 MCG/2 ML VIAL ONE (11:29)
[2017-04-05] MEDS ORDERED: KETOROLAC 30 MG/1 ML VIAL ONE (11:30)
[2017-04-05] MEDS: SODIUM CHLORIDE 0.9% 1,000 ML IV SCH (11:46)
[2017-04-05] MEDS: INSULIN REGULAR 100 UNIT/ML SUBCUT SCH ×3 (12:12→21:08)
[2017-04-05] MEDS: METOCLOPRAMIDE 10 MG/2 ML VIAL IV SCH ×3 (12:12→23:27)
[2017-04-05] MEDS: ALBUTEROL/IPRATROPIUM 3 ML NEB RESP TX SCH ×2 (13:58→19:10)
[2017-04-05] MEDS: MULTIVITAMIN (CENTRUM) TABLET PO SCH (15:07)
[2017-04-05] MEDS: CLINDAMYCIN 900 MG/50 ML IV SCH ×2 (15:07→23:33)
[2017-04-05] MEDS: FLUCONAZOLE 200 MG/100 ML IV SCH (16:01)
[2017-04-05] MEDS: ceFAZolin 2,000 MG in PREMIX 1 EACH IV SCH (17:04)
[2017-04-06] MEDS: ceFAZolin 2,000 MG in PREMIX 1 EACH IV SCH (01:26)
[2017-04-06] MEDS: SODIUM CHLORIDE 0.9% 1,000 ML IV SCH ×2 (01:31→09:57)
[2017-04-06 04:46] LABS: Basophils % 0.4 % (0.0-0.8); Eosinophils # 0.5 10*3/uL (0.0-0.87); Eosinophils % 9.8 % (0.00-10.9); Hemoglobin 9.7 GM/DL (12.0-16.0); Immature Granulocytes % 0.4 %; Immature Granulocytes Absolute 0.02 #; Lymphocytes # 1.5 10*3/uL (1.4-4.0); Lymphocytes % 31.7 % (21.3-54.2); Mean Corpuscular HGB Conc 31.3 GM/DL (32-36); Mean Corpuscular Hemoglobin 28 PG (27-34); Mean Corpuscular Volume 88.8 FL (87-102); Mean Platelet Volume 10.4 FL (9.6-12.0); Monocytes # 0.5 10*3/uL (0.11-0.8); Monocytes % 10.4 % (1.7-12.7); Neutrophils # 2.2 10*3/uL (1.4-7.4); Neutrophils % 47.3 % (38.7-73.9); Platelet Count 249 T/CUMM (130-400); Red Blood Count 3.49 MC/CUMM (3.8-5.5); Red Cell Distribution Width 14.6 % (9.3-17.3); White Blood Count 4.7 T/CUMM (4-12)
[2017-04-06 05:29] LABS: Calcium 7.9 MG/DL (8.5-10.1); Osmolality,Calculated 287.8 MOS/KG (273-304); Potassium 3.7 MMOL/L (3.5-5.1)
[2017-04-06] MEDS: METOCLOPRAMIDE 10 MG/2 ML VIAL IV SCH ×3 (06:19→17:25)
[2017-04-06] MEDS: CLINDAMYCIN 900 MG/50 ML IV SCH ×3 (06:21→22:00)
[2017-04-06] MEDS: ALBUTEROL/IPRATROPIUM 3 ML NEB RESP TX SCH ×3 (07:50→19:21)
[2017-04-06] MEDS: INSULIN REGULAR 100 UNIT/ML SUBCUT SCH ×4 (08:40→20:23)
[2017-04-06] MEDS: INSULIN GLARGINE 100 UNIT/ML SUBCUT SCH (09:24)
[2017-04-06] MEDS: PANTOPRAZOLE 40 MG TABLET PO SCH (09:24)
[2017-04-06] MEDS: MULTIVITAMIN (CENTRUM) TABLET PO SCH (09:24)
[2017-04-06 11:20] LABS: Hematocrit 31.9 VOL% (35.7-47.0); Hemoglobin 10.2 GM/DL (12.0-16.0)
[2017-04-06] MEDS: ENOXAPARIN 40 MG/0.4 ML SYRINGE SUBCUT SCH (11:32)
[2017-04-06] MEDS: LACTATED RINGERS 1,000 ML IV SCH (11:32)
[2017-04-06] MEDS ORDERED: SKIN HEALING OINT (AQUAPHOR) 50 GM TUBE TOP PRN (12:47)
[2017-04-06] MEDS: FLUCONAZOLE 200 MG/100 ML IV SCH (16:22)
[2017-04-07] MEDS: METOCLOPRAMIDE 10 MG/2 ML VIAL IV SCH ×4 (00:09→17:45)
[2017-04-07] MEDS: CLINDAMYCIN 900 MG/50 ML IV SCH ×3 (06:11→22:38)
[2017-04-07] MEDS: ALBUTEROL/IPRATROPIUM 3 ML NEB RESP TX SCH ×5 (07:21→23:24)
[2017-04-07] MEDS: INSULIN REGULAR 100 UNIT/ML SUBCUT SCH ×5 (08:12→22:38)
[2017-04-07] MEDS: MULTIVITAMIN (CENTRUM) TABLET PO SCH (08:34)
[2017-04-07] MEDS: INSULIN GLARGINE 100 UNIT/ML SUBCUT SCH (08:34)
[2017-04-07] MEDS: PANTOPRAZOLE 40 MG TABLET PO SCH (08:34)
[2017-04-07] MEDS ORDERED: methylPREDNISolone SOD SUC 125 MG/2 ML VIAL IV ONE (09:38)
[2017-04-07] MEDS: ENOXAPARIN 40 MG/0.4 ML SYRINGE SUBCUT SCH (10:39)
[2017-04-07] MEDS ORDERED: FUROSEMIDE 40 MG/4 ML VIAL IV ONE (10:44)
[2017-04-07] MEDS: FLUCONAZOLE 200 MG/100 ML IV SCH (16:34)
[2017-04-08] MEDS: METOCLOPRAMIDE 10 MG/2 ML VIAL IV SCH ×5 (00:36→23:24)
[2017-04-08] MEDS: ALBUTEROL/IPRATROPIUM 3 ML NEB RESP TX SCH ×6 (02:08→23:59)
[2017-04-08] MEDS: CLINDAMYCIN 900 MG/50 ML IV SCH ×3 (06:04→22:58)
[2017-04-08] MEDS ORDERED: predniSONE 20 MG TABLET PO SCH (09:00)
[2017-04-08] MEDS: INSULIN REGULAR 100 UNIT/ML SUBCUT SCH ×4 (09:26→21:33)
[2017-04-08] MEDS: INSULIN GLARGINE 100 UNIT/ML SUBCUT SCH (09:26)
[2017-04-08] MEDS: PANTOPRAZOLE 40 MG TABLET PO SCH (09:27)
[2017-04-08] MEDS: MULTIVITAMIN (CENTRUM) TABLET PO SCH (09:27)
[2017-04-08] MEDS: ENOXAPARIN 40 MG/0.4 ML SYRINGE SUBCUT SCH (10:46)
[2017-04-08] MEDS: FLUCONAZOLE 200 MG/100 ML IV SCH (15:41)
[2017-04-09] MEDS: ALBUTEROL/IPRATROPIUM 3 ML NEB RESP TX SCH ×6 (03:56→23:15)
[2017-04-09] MEDS: METOCLOPRAMIDE 10 MG/2 ML VIAL IV SCH ×3 (06:07→17:49)
[2017-04-09] MEDS: CLINDAMYCIN 900 MG/50 ML IV SCH ×2 (06:08→16:05)
[2017-04-09] MEDS: INSULIN REGULAR 100 UNIT/ML SUBCUT SCH ×4 (07:40→21:23)
[2017-04-09] MEDS: INSULIN GLARGINE 100 UNIT/ML SUBCUT SCH (10:02)
[2017-04-09] MEDS: PANTOPRAZOLE 40 MG TABLET PO SCH (10:05)
[2017-04-09] MEDS: ENOXAPARIN 40 MG/0.4 ML SYRINGE SUBCUT SCH (10:05)
[2017-04-09] MEDS: MULTIVITAMIN (CENTRUM) TABLET PO SCH (10:05)
[2017-04-09] MEDS: FLUCONAZOLE 200 MG/100 ML IV SCH (16:39)
[2017-04-10] MEDS: ALBUTEROL/IPRATROPIUM 3 ML NEB RESP TX SCH ×5 (03:00→19:14)
[2017-04-10] MEDS: CLINDAMYCIN 900 MG/50 ML IV SCH ×4 (06:20→23:39)
[2017-04-10] MEDS: METOCLOPRAMIDE 10 MG/2 ML VIAL IV SCH ×4 (06:20→18:13)
[2017-04-10] MEDS: INSULIN REGULAR 100 UNIT/ML SUBCUT SCH ×4 (07:30→21:08)
[2017-04-10] MEDS ORDERED: BENZOCAINE 20% SPRAY 57 GM CAN TOP ONE (08:38)
[2017-04-10] MEDS ORDERED: BENZOIN COMPOUND TINCTURE 58 ML BOTTLE TOP ONE (08:39)
[2017-04-10] MEDS: MULTIVITAMIN (CENTRUM) TABLET PO SCH (09:43)
[2017-04-10] MEDS: PANTOPRAZOLE 40 MG TABLET PO SCH (09:43)
[2017-04-10] MEDS: INSULIN GLARGINE 100 UNIT/ML SUBCUT SCH (09:44)
[2017-04-10] MEDS: ENOXAPARIN 40 MG/0.4 ML SYRINGE SUBCUT SCH (09:47)
[2017-04-10] MEDS: FLUCONAZOLE 200 MG/100 ML IV SCH (15:30)
[2017-04-11] MEDS: METOCLOPRAMIDE 10 MG/2 ML VIAL IV SCH ×4 (01:25→17:50)
[2017-04-11] MEDS: ALBUTEROL/IPRATROPIUM 3 ML NEB RESP TX SCH ×7 (03:32→23:48)
[2017-04-11] MEDS: CLINDAMYCIN 900 MG/50 ML IV SCH ×3 (06:05→22:14)
[2017-04-11] MEDS: INSULIN REGULAR 100 UNIT/ML SUBCUT SCH ×4 (08:20→21:42)
[2017-04-11] MEDS: PANTOPRAZOLE 40 MG TABLET PO SCH (08:30)
[2017-04-11] MEDS: MULTIVITAMIN (CENTRUM) TABLET PO SCH (08:30)
[2017-04-11] MEDS: INSULIN GLARGINE 100 UNIT/ML SUBCUT SCH (08:33)
[2017-04-11] MEDS: ENOXAPARIN 40 MG/0.4 ML SYRINGE SUBCUT SCH (11:36)
[2017-04-11] MEDS: BUDESONIDE/FORMOTEROL 160-4.5 INHALER 6 GM INH SCH ×2 (11:36→21:42)
[2017-04-11] MEDS: FLUCONAZOLE 200 MG/100 ML IV SCH (16:50)
[2017-04-12] MEDS: METOCLOPRAMIDE 10 MG/2 ML VIAL IV SCH ×2 (00:37→06:25)
[2017-04-12] MEDS: ALBUTEROL/IPRATROPIUM 3 ML NEB RESP TX SCH ×2 (03:01→07:34)
[2017-04-12 05:04] LABS: Basophils % 0.5 % (0.0-0.8); Eosinophils # 0.9 10*3/uL (0.0-0.87); Eosinophils % 14.4 % (0.00-10.9); Hematocrit 32.4 VOL% (35.7-47.0); Hemoglobin 10.3 GM/DL (12.0-16.0); Immature Granulocytes % 0.2 %; Immature Granulocytes Absolute 0.01 #; Lymphocytes # 1.7 10*3/uL (1.4-4.0); Lymphocytes % 27.9 % (21.3-54.2); Mean Corpuscular HGB Conc 31.8 GM/DL (32-36); Mean Corpuscular Hemoglobin 28 PG (27-34); Mean Corpuscular Volume 87.6 FL (87-102); Mean Platelet Volume 9.7 FL (9.6-12.0); Monocytes # 0.7 10*3/uL (0.11-0.8); Monocytes % 11.1 % (1.7-12.7); Neutrophils # 2.9 10*3/uL (1.4-7.4); Neutrophils % 45.9 % (38.7-73.9); Platelet Count 249 T/CUMM (130-400); Red Cell Distribution Width 14.6 % (9.3-17.3); White Blood Count 6.2 T/CUMM (4-12)
[2017-04-12 05:27] LABS: Calcium 8.7 MG/DL (8.5-10.1); Osmolality,Calculated 282.3 MOS/KG (273-304); Potassium 4.3 MMOL/L (3.5-5.1)
[2017-04-12 05:28] LABS: Eosinophils 15 % (0-10); Lymphocytes 31 % (20-55); Segmented Neutrophils 40 % (50-85); Total Cells Counted 100
[2017-04-12 05:29] LABS: Giant Platelets Few; Hypochromasia 1+; Platelet Estimate Adequate
[2017-04-12] MEDS: CLINDAMYCIN 900 MG/50 ML IV SCH (06:25)
[2017-04-12] MEDS: INSULIN REGULAR 100 UNIT/ML SUBCUT SCH ×2 (08:22→13:20)
[2017-04-12] MEDS: MULTIVITAMIN (CENTRUM) TABLET PO SCH (09:52)
[2017-04-12] MEDS: PANTOPRAZOLE 40 MG TABLET PO SCH (09:52)
[2017-04-12] MEDS: INSULIN GLARGINE 100 UNIT/ML SUBCUT SCH (09:52)
[2017-04-12] MEDS: BUDESONIDE/FORMOTEROL 160-4.5 INHALER 6 GM INH SCH (09:54)
[2017-04-12 11:14] VITALS: BP 138/82
[2017-04-12] MEDS: ENOXAPARIN 40 MG/0.4 ML SYRINGE SUBCUT SCH (13:19)
== END 2017-04-12 12:00 | DRG 940 ==
LOC: N.OR 05:44 → N.SDSINP 05:49 → N.3E 10:46
PROVIDERS: ADMIT Specialist; ATTEND Specialist